=== PATIENT | male | born 1955 | race Caucasian/White ===

== ENCOUNTER → 2019-12-30 15:10 | Outpatient (BNVA) | payer OTHER, SELFPAY | PROVIDERS: PCP Internal Medicine; Referring Provider Internal Medicine; Visit Provider Internal Medicine Cardiovascular Disease | DX: I48.0 Paroxysmal atrial fibrillation (principal) | CPT/HCPCS: 93005 ==

== ENCOUNTER 2020-05-02 09:39 | Outpatient (REF) | payer OTHER, SELFPAY ==
[2020-05-02 11:07] LABS: MANUAL DIFF FLAG NO
[2020-05-02 11:15] LABS: Basophils Percent Auto 0.2 % (0-2); Eosinophils Absolute Auto 0.2 X10*3/uL (0.0-0.4); Eosinophils Percent Auto 3.8 % (0-4); Hematocrit 40.3 % (42-52); Hemoglobin 13.6 g/dl (14.0-18.0); Imm Gran Abs Auto 0.01 X10*3/uL (0.00-0.03); Imm Gran Pct Auto 0.2 % (0.0-0.4); Mean Corpuscular HGB Conc 33.7 g/dl (31.0-36.0); Mean Corpuscular Hemoglobin 32.2 pg (27.0-33.0); Mean Corpuscular Volume 95.3 fL (80-98); Mean Platelet Volume 9.3 fL (9.4-12.4); Monocytes Absolute Auto 0.3 X10*3/uL (0.1-1.2); Monocytes Percent Auto 6.5 % (2-11); Neutrophils Absolute Auto 3.5 X10*3/uL (2.0-8.3); Neutrophils Percent Auto 70.3 % (45-73); Platelet Count 126 X10*3/uL (160-400); Red Blood Count 4.23 X10*6/uL (4.60-5.80); Red Cell Distribution Width 12.2 % (11.0-16.0)
[2020-05-02 11:21] LABS: Creatinine Urine 162.52 mg/dL; Microalbum/Creatinine Ratio Ur 40.6 ug/mg cr
[2020-05-02 11:26] LABS: B Type Natriuretic Peptide 32 pg/mL (<100)
[2020-05-02 11:35] LABS: Alanine Aminotransferase 22 U/L (0-40); Albumin Level 4.4 g/dL (3.5-5.0); Alkaline Phosphatase 62 U/L (39-117); Anion Gap 14 (12-20); Aspartate Amino Transferase 22 U/L (5-37); Bilirubin Total 1.3 mg/dL (0.0-1.0); Blood Urea Nitrogen 15 mg/dL (9-16); Calcium 9.1 mg/dL (8.4-10.2); Carbon Dioxide 26 mmol/L (22-29); Chloride 109 mmol/L (96-108); Cholesterol 148 mg/dL; Estimated Glomerular Filt Rate > 60; Glucose Fasting 88 mg/dL (60-99); HDL Cholesterol 56 mg/dL; LDL Cholesterol Calculated 79 mg/dl; Phosphorus 2.6 mg/dL (2.7-4.5); Potassium 4.6 mmol/L (3.3-5.1); Sodium 144 mmol/L (135-145); Total Protein 6.9 g/dL (6.5-8.0); Triglycerides 67 mg/dL
[2020-05-02 11:49] LABS: T4 Thyroxine 5.4 ug/dL (4.5-12.0); Thyroid Stimulating Hormone 3.59 uIU/mL (0.32-4.0)
[2020-05-04 04:55] LABS: Folate > 20.0 ng/mL (> or = 4.0); Vitamin B12 306 pg/mL (200-900)
== END 2020-05-02 09:40 | disposition home or self-care (01) ==
LOC: HO.LAB 09:39
PROVIDERS: PCP Internal Medicine; Visit Provider Internal Medicine
DX: Z12.5 Encounter for screening for malignant neoplasm of prostate (principal); E11.9 Type 2 diabetes mellitus without complications; E66.9 Obesity, unspecified; I48.91 Unspecified atrial fibrillation; E78.00 Pure hypercholesterolemia, unspecified; I10 Essential (primary) hypertension; G47.33 Obstructive sleep apnea (adult) (pediatric)
CPT/HCPCS: 36415; 80053; 80061; 82043; 82607; 82746; 83735; 83880; 84100; 84153; 84436; 84443; 85025

== ENCOUNTER → 2020-05-21 14:46 | Outpatient (BNVA) | payer OTHER, SELFPAY | PROVIDERS: PCP Internal Medicine; Visit Provider Nurse Practitioner Family | DX: I48.0 Paroxysmal atrial fibrillation (principal); I44.0 Atrioventricular block, first degree; I10 Essential (primary) hypertension; E66.9 Obesity, unspecified; G47.33 Obstructive sleep apnea (adult) (pediatric) | CPT/HCPCS: 93005 ==

== ENCOUNTER → 2020-11-30 14:55 | Outpatient (BNVA) | payer OTHER, SELFPAY | PROVIDERS: PCP Internal Medicine; Referring Provider Internal Medicine; Visit Provider Internal Medicine Cardiovascular Disease | DX: I48.0 Paroxysmal atrial fibrillation (principal); I44.7 Left bundle-branch block, unspecified | CPT/HCPCS: 93005 ==

== ENCOUNTER → 2021-05-25 14:00 | Outpatient (REF) | payer OTHER, SELFPAY ==
--- NOTE | 2021-05-25 14:10 | CA_ITS ---
Transthoracic Echocardiogram Patient (Last, First, Middle): Kem Garibay M Gender: Male Date of : 1955 Age: 65 Procedure Date: 05/25/2021 Procedure Type: Transthoracic Echocardiogram Location: OP Height: 185.42 cm Weight: 129.28 kg BSA: 2.50 m2 Heart Rate: bpm BP: 115 / 78 mmHg Admissions Evaluator: JESSI Referring MD: Roel Benjamin MD Symptoms: I48.0 - Paroxysmal atrial fibrillation Study Quality: Fair/contrast ECG Rhythm: Undetermined Conclusions: - The left ventricular systolic function is moderately decreased. The calculated ejection fraction is 37% by biplane method. - No obvious valvular pathology seen on this study. - There is mild dilatation of the ascending aorta measuring 4.00 cm. Findings Left Ventricle Moderately increased left ventricular cavity size. There is mildly increased left ventricular wall thickness. The left ventricular systolic function is moderately decreased. The calculated ejection fraction is 37% by biplane method. There is paradoxical septal motion consistent with a left bundle branch block. Diastolic function is indeterminate on the basis of available data. Right Ventricle Normal right ventricular cavity size and systolic function. Atria Both atria are normal in size. Aortic Valve The aortic valve was not well visualized. There is no aortic valve stenosis. There is no aortic valve regurgitation. Mitral Valve The mitral valve appears normal. There is mild anterior mitral leaflet thickening. There is trace mitral valve regurgitation. There is no mitral valve stenosis. Pulmonic Valve The pulmonic valve is likely normal. Tricuspid Valve There is trace tricuspid valve regurgitation. The pulmonary artery systolic pressure is normal. Great Vessels There is mild dilatation of the ascending aorta measuring 4.00 cm. Venous The inferior vena cava is normal in size and collapses greater than 50% with inspiration. Pericardium/Pleural There is no evidence of pericardial effusion. Prior Study Comparison Changes noted compared to prior study dated: 07/31/2019. LV dilated. LVEF reduced. Recommendations, Care & Conclusions No obvious valvular pathology seen on this study. Measurements 2D Linear Measurements IVSd: 1.03 0.6-0.9/0.6-1.0 cm LVIDd: 7.03 3.9-5.3/4.2-5.9 cm LVIDd Index: 2.81 2.4-3.2/2.2-3.1 cm/m2 LVIDs: 5.42 2.0-3.6 cm LVPWd: 1.19 0.7-1.1 cm LA Diam: 3.50 2.7-3.8/3.0-4.0 cm LAIDs Index: 1.40 1.5-2.3 cm/m2 LV Mass: 461.79 67-162/88-224 g LV Mass Index: 184.71 43-95/49-115 g/m2 LVOT Diam: 2.30 3.0+(-)1.3 cm 2D Systolic Function EF 4C: 30.40 >55% EF 2C: 46.10 >55% EF BiP: 37.20 >55% Mitral Valve E'Lateral: 10.20 E'Medial: 10.60 Aortic Valve AoV Pk Benigno: 1.59 AoV Mn Benigno: 1.18 AoV VTI: 0.33 AoV Pk Grad: 10.00 Aov Mn Grad: 6.00 MOLLY Cont.VTI: 2.63 LVOT LVOT Pk Benigno: 1.02 LVOT Mn Benigno: 0.72 LVOT VTI: 0.21 LVOT Pk Grad: 4.00 LVOT Mn Grad: 2.00 LVOT Diam: 2.30 LVOT Area: 4.15 Diastolic Function E'Medial: 10.60 E' Laterial: 10.20 Right Ventricle TAPSE (mm): 22.00 TVS' Benigno: 12.40 Tricuspid Valve TR Pk Benigno: 2.36 TR Pk Grad: 22.00 RA Press: 3.00 RVSP: 25.00 Great Vessels Aorta Sinus of Valsalva: 3.96 2.0-3.[address] Ridge: 2.94 1.7-3.4 cm Ao Asc: 4.00 2.1-3.4 cm Updated in Other Vendor System with Status of Final Nathan Oreilly MD electronically signed on 05/25/2021 5:08:22 PM with status of Final
== END ==
LOC: HO.CARD 14:00
PROVIDERS: PCP Internal Medicine; Visit Provider Internal Medicine Cardiovascular Disease
DX: I48.0 Paroxysmal atrial fibrillation (principal)
CPT/HCPCS: 93306; Q9957

== ENCOUNTER → 2021-06-01 14:34 | Outpatient (BNVA) | payer OTHER, SELFPAY | PROVIDERS: PCP Internal Medicine; Referring Provider Internal Medicine; Visit Provider Internal Medicine Cardiovascular Disease | DX: Z13.89 Encounter for screening for other disorder (principal) ==

== ENCOUNTER → 2021-06-15 08:06 | Outpatient (REF) | payer OTHER, SELFPAY ==
--- NOTE | ~2021-06-15 | NM_ITS ---
Lexiscan Myocardial perfusion study Indication: Cardiomyopathy, assess for coronary disease and ischemia Technique: The patient was brought in for a Lexiscan perfusion study on 06/15/2021 and was injected 0.4 mg of Lexiscan intravenously. Within a minute of this injection 45 mCi of sestamibi was given intravenously. Images were obtained using the SPECT gamma camera interlaced with the gating device. Images were obtained in supine position. Resting perfusion study was performed on 06/16/2021. Patient was administered 45 mCi of sestamibi intravenously at rest. Images were then obtained in supine position. Total DLP 159mGy-cm. Images were processed with the software and compared side to side in short axis, horizontal long axis and vertical long axis views. Findings: Raw acquisition reviewed. The stress perfusion study showed severely reduced tracer uptake along the inferior wall. There is improvement in tracer uptake which could indicate components of diaphragmatic attenuation artifact. The gated study shows markedly diminished LV systolic function with calculated LVEF of 24%. LV cavity is dilated in size. The gated study shows markedly diminished wall thickening and contraction of segments. Resting study shows diminished tracer uptake along the inferior wall. There is improvement with CT attenuation correction and hence could be components of diaphragmatic attenuation artifact. Gating at rest reveals globally reduced contractility with ejection fraction at 36%. The findings are consistent with no clear reversible defects. Fixed inferior defect. NM/NM maikel perf SPECT rest & str Impression: 1. Myocardial perfusion imaging study shows no clear evidence of any ischemia. Fixed inferior defect that could be from diaphragmatic attenuation artifact but cannot exclude a prior infarct in that area. 2. Gated LVEF is 24% during stress and 36% during rest. 3. Transient ischemic dilatation not present but LV cavity is dilated. EKG component of the test reported separately.
--- NOTE | 2021-06-15 08:09 | CA_ITS ---
Acquisition Time: 2021-06-15 08:22:51 Total Exercise Time: 00:02:00 Test Indications: AFIB, AFLUTTER, LBBB Medications: SEE CHART Protocol: LEXISCAN Max HR: 104 BPM 66% of Pred: 157 BPM Max BP: 144/078 mmHG Max Work Load: 1.0 METS Pharmacological stress test with Lexiscan injection, while sitting, without anginal symptoms, with isolated PVCs, two ventricular cuplets, with normotensive response to injection, with nondiagnostic EKG for ischemia. In recovery he reported shortness of breath and was treated with Aminphylline 75mg IVP to reverse Lexiscan with resolution of symptom. Nuclear mages pending. Test reviewed with Dr Toribio. Referred By: Roel Benjamin Overread By: MATILDA DAMON
== END ==
LOC: HO.CARD 08:06
PROVIDERS: PCP Internal Medicine; Visit Provider Internal Medicine Cardiovascular Disease
DX: I48.0 Paroxysmal atrial fibrillation (principal); I44.7 Left bundle-branch block, unspecified; I50.9 Heart failure, unspecified
CPT/HCPCS: 78452; 93017; A9500; J0280; J2785

== ENCOUNTER 2021-06-29 06:42 | Outpatient (REF) | payer OTHER, SELFPAY ==
[2021-06-29 07:09] LABS: MANUAL DIFF FLAG NO
[2021-06-29 07:37] LABS: Basophils Percent Auto 0.3 % (0-2); Eosinophils Absolute Auto 0.1 X10*3/uL (0.0-0.4); Eosinophils Percent Auto 1.7 % (0-4); Hematocrit 39.9 % (42.0-52.0); Hemoglobin 13.6 g/dl (14.0-18.0); Imm Gran Abs Auto 0.01 X10*3/uL (0.00-0.03); Imm Gran Pct Auto 0.3 % (0.0-0.4); Lymphocytes Absolute Auto 1.1 X10*3/uL (1.2-4.9); Mean Corpuscular HGB Conc 34.1 g/dl (31.0-36.0); Mean Corpuscular Hemoglobin 31.8 pg (27.0-33.0); Mean Corpuscular Volume 93.2 fL (80.0-98.0); Monocytes Absolute Auto 0.3 X10*3/uL (0.1-1.2); Monocytes Percent Auto 8.5 % (2-11); Neutrophils Absolute Auto 2.1 x10*3/uL (2.0-8.3); Neutrophils Percent Auto 58.2 % (45-73); Platelet Count 128 X10*3/uL (160-400); Red Blood Count 4.28 X10*6/uL (4.60-5.80); Red Cell Distribution Width 12.1 % (11.0-16.0); White Blood Count 3.5 X10*3/uL (4.8-10.8)
[2021-06-29 08:00] LABS: Alanine Aminotransferase 18 U/L (0-40); Albumin Level 4.2 g/dL (3.5-5.0); Alkaline Phosphatase 58 U/L (39-117); Anion Gap 12 (12-20); Aspartate Amino Transferase 16 U/L (5-37); Bilirubin Total 1.2 mg/dL (0.0-1.0); Blood Urea Nitrogen 12 mg/dL (9-16); Calcium 9.5 mg/dL (8.4-10.2); Carbon Dioxide 26 mmol/L (22-29); Chloride 107 mmol/L (96-108); Cholesterol 160 mg/dL; Estimated Glomerular Filt Rate > 60; Glucose Random 109 mg/dL (60-115); HDL Cholesterol 60 mg/dL; LDL Cholesterol Calculated 69 mg/dl; Potassium 4.5 mmol/L (3.3-5.1); Sodium 140 mmol/L (135-145); Total Protein 6.5 g/dL (6.5-8.0); Triglycerides 157 mg/dL
[2021-06-29 08:03] LABS: B Type Natriuretic Peptide 224 pg/mL (<100)
[2021-06-29 08:23] LABS: Free T4 (Free Thyroxine) 0.77 ng/dL (0.71-1.85); Thyroid Stimulating Hormone 10.97 uIU/mL (0.32-4.0)
[2021-06-29 08:32] LABS: Folate 14.2 ng/mL (> or = 4.0); Vitamin B12 198 pg/mL (200-900)
[2021-06-29 09:24] LABS: Creatinine Urine 133.07 mg/dL
== END 2021-06-29 06:43 | disposition home or self-care (01) ==
LOC: HO.LAB 06:42
PROVIDERS: PCP Internal Medicine; Visit Provider Internal Medicine
DX: E11.65 Type 2 diabetes mellitus with hyperglycemia (principal); E78.00 Pure hypercholesterolemia, unspecified
CPT/HCPCS: 36415; 80053; 80061; 82043; 82607; 82746; 83880; 84439; 84443; 85025

== ENCOUNTER 2021-08-11 09:23 | Outpatient (REF) | payer OTHER, SELFPAY ==
--- NOTE | ~2021-08-11 | US_ITS ---
EXAMINATION: US THYROID CLINICAL INFORMATION: Hypothyroidism, unspecified. COMPARISON: CT soft tissue neck 11/01/2018. Ultrasound soft tissue neck 10/29/2018. TECHNIQUE: Linear transducer grayscale and color Doppler examination with attention to the region of the thyroid. FINDINGS: SIZE: Measurements of the thyroid lobes and nodules are given in sagittal, anteroposterior and transverse dimensions respectively. Right Thyroid Lobe: 3.5 x 0.8 x 1.1 cm, volume 1.6 mL. Parenchyma: The gland echotexture is homogeneous. Thyroid vascularity is normal. Left Thyroid Lobe: Not seen. Isthmus: 0.2 cm in maximum AP dimension. No focal thyroid nodule is seen. NODES: No lymphadenopathy is seen in the tissue surrounding the thyroid gland. US/US thyroid IMPRESSION: Left thyroid lobe is not visualized. Unremarkable right thyroid lobe. No nodules seen. ACR TI-RADS RECOMMENDATION REFERENCE: Ultrasound-guided fine-needle aspiration, followup ultrasound, no further follow up. * TR1 (0 point) and TR 2 (2 points): No FNA or follow up * TR3 (3 points): FNA if more than or equal to 2.5 cm in maximum dimension, followup ultrasound in 1, 3 and 5 years if 1.5 to 2.4 cm in maximum dimension. * TR4 (4-6 points): FNA if more than or equal to 1.5 cm in maximum dimension, followup ultrasound in 1, 2, 3 and 5 years if 1 to 1.4 cm in maximum dimension. * TR5 (more than or equal to 7 points): FNA if more than or equal to 1 cm in maximum dimension, followup ultrasound every year for 5 years if 0.5 to 0.9 cm in maximum dimension. * TR3, TR4 or TR5 nodules that are below the size threshold for follow up receive no follow up.
== END 2021-08-11 09:24 | disposition home or self-care (01) ==
LOC: HO.US 09:23
PROVIDERS: Visit Provider Internal Medicine
DX: E03.9 Hypothyroidism, unspecified (principal)
CPT/HCPCS: 76536

== ENCOUNTER 2021-10-05 06:51 | Outpatient (REF) | payer OTHER, SELFPAY ==
[2021-10-05 08:21] LABS: Thyroid Stimulating Hormone 9.32 uIU/mL (0.32-4.0)
[2021-10-12 17:32] LABS: Cortisol, Free 1.22 mcg/dL
== END 2021-10-05 06:52 | disposition home or self-care (01) ==
LOC: HO.LAB 06:51
PROVIDERS: PCP Internal Medicine; Visit Provider Internal Medicine
DX: E11.65 Type 2 diabetes mellitus with hyperglycemia (principal); E03.9 Hypothyroidism, unspecified; R22.2 Localized swelling, mass and lump, trunk
CPT/HCPCS: 36415; 82530; 84439; 84443

== ENCOUNTER → 2021-11-16 09:22 | Outpatient (REF) | payer OTHER, SELFPAY ==
--- NOTE | 2021-11-16 09:28 | CA_ITS ---
Transthoracic Echocardiogram Patient (Last, First, Middle): Kem Garibay M Gender: Male Date of : 1955 Age: 65 Procedure Date: 11/16/2021 Procedure Type: Transthoracic Echocardiogram Location: OP Height: 185.42 cm Weight: 124.74 kg BSA: 2.46 m2 Heart Rate: bpm BP: 130 / 72 mmHg Nurse Liaison: VH/TO Referring MD: Roel Benjamin MD [employer] Trimmer: Roel Benjamin MD Symptoms: I42.9 - Cardiomyopathy, unspecified Study Quality: Technically Difficult/Contrast ECG Rhythm: Sinus Conclusions: - 1. Moderately dilated left ventricle with severely reduced LV ejection fraction 15-20% with pseudonormal filling pattern 2. Moderately dilated left atrium 3. Normal RV systolic pressure Findings Procedure Information Contrast agent, definity, is being given per protocol without apparent complications. Left Ventricle Moderately increased left ventricular cavity size. There is normal left ventricular wall thickness. The visually estimated ejection fraction is between 15-20%. There is paradoxical septal motion consistent with a left bundle branch block. Spectral Doppler is indicative of a pseudonormal filling pattern. E/E prime ratio is between 8 and 15 consistent with indeterminate filling pressures. Right Ventricle Normal right ventricular cavity size and systolic function. Atria The left atrium is moderately dilated. Tricuspid Valve Normal tricuspid valve structure. The right ventricular systolic pressure is 23 mmHg. Normal right atrial pressure. There is no evidence of pulmonary hypertension. Pericardium/Pleural There is no evidence of pericardial effusion. Prior Study Comparison Changes noted compared to prior study dated: 05/25/2021. LV systolic function is significantly reduced Measurements 2D Linear Measurements IVSd: 0.76 0.6-0.9/0.6-1.0 cm LVIDd: 6.34 3.9-5.3/4.2-5.9 cm LVIDd Index: 2.58 2.4-3.2/2.2-3.1 cm/m2 LVIDs: 5.41 2.0-3.6 cm LVPWd: 0.95 0.7-1.1 cm LA Diam: 4.80 2.7-3.8/3.0-4.0 cm LAIDs Index: 1.95 1.5-2.3 cm/m2 LV Mass: 275.68 67-162/88-224 g LV Mass Index: 112.06 43-95/49-115 g/m2 LVOT Diam: 2.30 3.0+(-)1.3 cm 2D Systolic Function EF 4C: 18.30 >55% EF 2C: 12.90 >55% EF BiP: 16.70 >55% Mitral Valve MV Pk E: 0.90 MV Decel Time: 211.00 E'Lateral: 9.14 E'Medial: 7.29 E/E' Med: 12.40 E/E' Lat: 9.90 PHT: 62.00 MVA PHT: 3.55 Decel Hinds: 4.29 LVOT LVOT Pk Benigno: 0.71 LVOT Mn Benigno: 0.52 LVOT VTI: 0.13 LVOT Pk Grad: 2.00 LVOT Mn Grad: 1.00 LVOT Diam: 2.30 LVOT Area: 4.15 Diastolic Function MV Pk E: 0.90 E'Medial: 7.29 E/E' Med: 12.40 E' Laterial: 9.14 E/E' Lat: 9.90 Right Ventricle TAPSE (mm): 23.30 TVS' Benigno: 11.20 Tricuspid Valve TR Pk Benigno: 2.21 TR Pk Grad: 20.00 RA Press: 3.00 RVSP: 23.00 Updated in Other Vendor System with Status of Final Roel Benjamin MD electronically signed on 11/16/2021 6:56:51 PM with status of Final
== END ==
LOC: HO.CARD 09:22
PROVIDERS: PCP Internal Medicine; Visit Provider Internal Medicine Cardiovascular Disease
DX: I42.9 Cardiomyopathy, unspecified (principal)
CPT/HCPCS: 93308; Q9957

== ENCOUNTER 2021-12-02 06:36 | Outpatient (REF) | payer OTHER, SELFPAY ==
[2021-12-02 08:15] LABS: Free T4 (Free Thyroxine) 0.93 ng/dL (0.71-1.85); Thyroid Stimulating Hormone 7.02 uIU/mL (0.32-4.0)
== END 2021-12-02 06:37 | disposition home or self-care (01) ==
LOC: HO.LAB 06:36
PROVIDERS: PCP Internal Medicine; Visit Provider Internal Medicine
DX: E03.9 Hypothyroidism, unspecified (principal)
CPT/HCPCS: 36415; 84439; 84443

== ENCOUNTER → 2022-01-05 15:56 | Outpatient (BNVA) | payer OTHER, SELFPAY | PROVIDERS: PCP Internal Medicine; Referring Provider Internal Medicine; Visit Provider Internal Medicine Cardiovascular Disease | DX: I48.91 Unspecified atrial fibrillation (principal); I44.7 Left bundle-branch block, unspecified; Z79.899 Other long term (current) drug therapy | CPT/HCPCS: 93005 ==

== ENCOUNTER 2022-01-21 06:30 | Outpatient (REF) | payer OTHER, SELFPAY ==
[2022-01-21 08:21] LABS: Free T4 (Free Thyroxine) 1.04 ng/dL (0.71-1.85); Thyroid Stimulating Hormone 7.36 uIU/mL (0.32-4.0)
== END 2022-01-21 06:31 | disposition home or self-care (01) ==
LOC: HO.LAB 06:30
PROVIDERS: PCP Internal Medicine; Visit Provider Internal Medicine
DX: E03.9 Hypothyroidism, unspecified (principal)
CPT/HCPCS: 36415; 84439; 84443

== ENCOUNTER 2022-01-21 11:16 | Day surgery (SDC) | payer OTHER, SELFPAY ==
--- NOTE | 2022-01-20 11:01 | P.CONAN_ITS ---
Documented by User: Geovanna Paz NP 01/20/22 12:13 HPI - Anesthesia Eval Consult details Narrative: 66yo M for Cardioversion ICD in situ Eliquis for afib [facility] Active Problems Active Problems: All Active Problems (Updated 01/20/22 @ 09:46 by Sylvia Riley, RN) SHAR (obstructive sleep apnea) (Acute) Cardiomyopathy (Acute) Thrombocytopenia (Acute) First degree AV block (Acute) Erectile dysfunction (Acute) LBBB (left bundle branch block) (Acute) Hypothyroid (Acute) Vitamin B12 deficiency (Acute) Annual physical exam (Acute) Mass on back (Acute) Paroxysmal atrial fibrillation (Acute) Cancer of oropharynx (Acute) Obesity (BMI 30-39.9) (Acute) Congestive heart failure (Acute) Type 2 diabetes mellitus with hyperglycemia (Acute) Hypercholesterolemia (Acute) Hypertension (Acute) Past Medical History Medical History (Updated 01/20/22 @ 09:46 by Sylvia Riley, RN) Anxiety Atrial fibrillation Cancer of oropharynx Cardiomyopathy Congestive heart failure Erectile dysfunction Fatty liver Hypercholesterolemia Hypertension Left bundle branch block Obesity (BMI 30-39.9) Paroxysmal atrial fibrillation Type 2 diabetes mellitus with hyperglycemia Vitamin D deficiency Family History Family History Father Lung cancer Mother Diabetes Brother Substance abuse Surgical History Surgical History (Updated 01/20/22 @ 09:48 by Sylvia Riley RN) History of bilateral knee arthroplasty History of cardioversion History of implantable cardioverter-defibrillator (ICD) insertion History of tonsillectomy Hx of cholecystectomy Hx of knee surgery Social History Social History Housing: House Alcohol intake: current Alcohol intake frequency: a few times a month Patient Tobacco Use Status: Never used Tobacco e-Cigarette/Vaping Use: Never Used Second Hand Smoke Exposure: No service: Yes Current occupational status: employed Cognitive needs: No Hearing needs: No Vision needs: Yes Meds Allergies Allergy/AdvReac Type Severity Reaction Status Date / Time No Known Allergies Allergy Verified 10/12/21 15:08 Home Medications Medication Instructions Recorded Confirmed Last Taken Type pilocarpine HCl 5 mg tablet 5 mg PO BID 07/01/21 12/09/21 Unknown History coenzyme Q10 200 mg capsule (Co 400 mg PO DAILY 10/12/21 12/09/21 Unknown History Q-10) Exam Exam Date and Time: January 20, 2022 1101 Pertinent Lab Results Pertinent Lab Results: Laboratory Tests 06/29/21 06/29/21 07:07 07:07 WBC 3.5 L Hgb 13.6 L Hct 39.9 L Plt Count 128 L Sodium 140 Potassium 4.5 Chloride 107 Carbon Dioxide 26 BUN 12 Creatinine 0.80 Narrative Narrative: ECHO 11/2021 Conclusions: - 1. Moderately dilated left ventricle with severely reduced LV? ejection fraction 15-20% with pseudonormal filling pattern ? ? ? 2. Moderately dilated left atrium? 3. Normal RV systolic pressure ?? NM maikel perf SPECT rest & str 06/2021 Impression: ? 1.? Myocardial perfusion imaging study shows no clear evidence of any ischemia. Fixed inferior defect that could be from diaphragmatic attenuation artifact but cannot exclude a prior infarct in that area. 2.? Gated LVEF is 24% during stress and 36% during rest. 3. Transient ischemic dilatation not present but LV cavity is dilated. ? EKG component of the test reported separately. Cardiac Device Check Details: Remote ICD report generated 01/11/2022.? 100% atrial fibrillation noted.? Bi V pacing is only 33% of the time.? Otherwise device function is adequate. Assessment and Plan Assessment Anesthesia Assessment: Chart Reviewed Documented by User: Veronica Crouch MD 01/21/22 10:38 [facility] Past Medical History Medical History (Updated 01/20/22 @ 09:46 by Sylvia Riley, CURT) Anxiety Atrial fibrillation Cancer of oropharynx Cardiomyopathy Congestive heart failure Erectile dysfunction Fatty liver Hypercholesterolemia Hypertension Left bundle branch block Obesity (BMI 30-39.9) Paroxysmal atrial fibrillation Type 2 diabetes mellitus with hyperglycemia Vitamin D deficiency Functional capacity: independent ambulation Family History Family History Father Lung cancer Mother Diabetes Brother Substance abuse Surgical History Surgical History (Updated 01/20/22 @ 09:48 by Sylvia Riley RN) History of bilateral knee arthroplasty History of cardioversion History of implantable cardioverter-defibrillator (ICD) insertion History of tonsillectomy Hx of cholecystectomy Hx of knee surgery Social History Social History Housing: House Alcohol intake: current Alcohol intake frequency: a few times a month Patient Tobacco Use Status: Never used Tobacco e-Cigarette/Vaping Use: Never Used Second Hand Smoke Exposure: No service: Yes Current occupational status: employed Cognitive needs: No Hearing needs: No Vision needs: Yes Meds Allergies Allergy/AdvReac Type Severity Reaction Status Date / Time No Known Allergies Allergy Verified 10/12/21 15:08 Home Medications Medication Instructions Recorded Confirmed Last Taken Type pilocarpine HCl 5 mg tablet 5 mg PO BID 07/01/21 12/09/21 Unknown History coenzyme Q10 200 mg capsule (Co 400 mg PO DAILY 10/12/21 12/09/21 Unknown History Q-10)
[2022-01-21] VITALS (7 sets, daily range): BP systolic 113–141; BP diastolic 36–86; PULSE 60–73; RESP 15–18; TEMP 36.3–36.4; O2SAT 96–98; BMI 37.5
[2022-01-21] MEDS: Lactated Ringers 1,000 ML 50 ML IVCONT (12:13)
--- NOTE | 2022-01-21 13:35 | ECG_ITS ---
Test Reason : postop Blood Pressure : / mmHG Vent. Rate : 063 BPM Atrial Rate : 063 BPM P-R Int : 148 ms QRS Dur : 172 ms QT Int : 518 ms P-R-T Axes : 088 228 051 degrees QTc Int : 530 ms Atrial-sensed ventricular-paced rhythm with frequent AV dual-paced complexes Abnormal ECG When compared with ECG of 12-NOV-2018 12:41, Electronic ventricular pacemaker has replaced Sinus rhythm Referred By: Roel Benjamin Electronically Signed By:ROEL BENJAMIN MD
--- NOTE | 2022-01-21 13:39 | HO.CARDIVERS ---
Cardioversion Procedure Note Cardioversion Date of Procedure: Today Ordering Provider: Myself Performing Provider: Myself Indication for Procedure: Persistent atrial fibrillation with suboptimal biventricular pacing Pre-Op Diagnosis: Same Post-Op Diagnosis: Sinus rhythm Performed with Transesophageal Echo: No History: See my office note Consent: Verbal and Written consent was obtained from the patient before starting the procedure and confirming oral anticoagulation use. The patient was made aware of the risk of synchronized cardioversion including benefits and alternatives Procedure: After consent obtained, cardioversion pads were attached in anteroposterior configuration and the patient was sedated by the anesthesia team. Once adequate sedation achieved, patient was delivered 200 joules of biphasic synchronized energy in anteroposterior configuration Complications: None Impression: Successful conversion to sinus rhythm ICD was interrogated prior to the cardioversion and pacing and shock lead impedance is stable. Post-conversion the pacing and shock lead impedance is stable and similar to pre cardioversion. ICD was reprogrammed from VVI to DDDR at 60 beats per minute. Biventricular pacing was then achieved. Atrial sensing was greater than 5 mV. RV and LV pacing thresholds appear to be stable. Recommendations: 1. Twelve lead EKG 2. Continue amiodarone and oral anticoagulation 3. Follow up in the clinic as planned
--- NOTE | 2022-01-21 13:43 | P.CONAN_ITS ---
[facility] Active Problems Active Problems: All Active Problems (Updated 01/20/22 @ 09:46 by Sylvia Riley RN) SHAR (obstructive sleep apnea) (Acute) Cardiomyopathy (Acute) Thrombocytopenia (Acute) First degree AV block (Acute) Erectile dysfunction (Acute) LBBB (left bundle branch block) (Acute) Hypothyroid (Acute) Vitamin B12 deficiency (Acute) Annual physical exam (Acute) Mass on back (Acute) Paroxysmal atrial fibrillation (Acute) Cancer of oropharynx (Acute) Obesity (BMI 30-39.9) (Acute) Congestive heart failure (Acute) Type 2 diabetes mellitus with hyperglycemia (Acute) Hypercholesterolemia (Acute) Hypertension (Acute) Past Medical History Medical History Anxiety Atrial fibrillation Cancer of oropharynx Cardiomyopathy Congestive heart failure Erectile dysfunction Fatty liver Hypercholesterolemia Hypertension Left bundle branch block Obesity (BMI 30-39.9) Paroxysmal atrial fibrillation Type 2 diabetes mellitus with hyperglycemia Vitamin D deficiency Functional capacity: independent ambulation Family History Family History Father Lung cancer Mother Diabetes Brother Substance abuse Family history of problems with anesthesia: No Surgical History Surgical History History of bilateral knee arthroplasty History of cardioversion History of implantable cardioverter-defibrillator (ICD) insertion History of tonsillectomy Hx of cholecystectomy Hx of knee surgery History of Problems with Anesthesia: No Social History Social History Housing: House Alcohol intake: current Alcohol intake frequency: a few times a month Patient Tobacco Use Status: Never used Tobacco e-Cigarette/Vaping Use: Never Used Second Hand Smoke Exposure: No Use of substances other than those prescribed or required for medical reasons: No Are you DNR?: No Advance Directives: No Advance Directives Information Provided: Yes service: Yes Current occupational status: employed Cognitive needs: No Hearing needs: No Vision needs: Yes Meds Allergies Allergy/AdvReac Type Severity Reaction Status Date / Time No Known Allergies Allergy Verified 10/12/21 15:08 Active Medications: Current Medications Lactated Ringer's (Lr) 1,000 mls @ 50 mls/hr IVCONT .Q20H MAY Last Admin: 01/21/22 12:13 Dose: 50 mls/hr Home Medications Medication Instructions Recorded Confirmed Last Taken Type pilocarpine HCl 5 mg tablet 5 mg PO BID 07/01/21 01/21/22 01/21/22 History coenzyme Q10 200 mg capsule (Co 400 mg PO DAILY 10/12/21 01/21/22 01/21/22 History Q-10) amlodipine 5 mg tablet 10 mg PO DAILY 01/21/22 01/21/22 01/21/22 History Exam Exam Date and Time: January 21, 2022 1343 Height,Weight and Vital Signs: Height 6 ft 1 in Weight 129.274 kg Last Vital Signs Temp 97.6 F 01/21/22 11:52 Pulse 73 01/21/22 11:52 Resp 18 01/21/22 11:52 BP 135/86 01/21/22 11:52 Pulse Ox 96 01/21/22 11:52 O2 Del Method 01/21/22 11:52 Airway Mallampati Class: II TM Dist: >3cm Neck ROM: Full Heart: irreg Lungs: CTA Assessment and Plan Final Anesthetic Review Family History of Problems with Anesthesia: No History of Problems with Anesthesia: No ASA Class: III Final Preanesthetic Review: Meds/Allgs Chart Reviewed, Consent Obtained/Reviewed and Anes Risks/Benef Reviewed Patient Risk: Intermediate Procedure Risk: Low Anesthetic Plan Disposition: Standard PACU
--- NOTE | 2022-01-21 13:47 | HO.POSTANES ---
Post Anesthesia Evaluation Post Anesthesia Evaluation Vital Signs: Vital Signs Temp Pulse Resp BP Pulse Ox O2 Del Method 01/21/22 11:52 97.6 F 73 18 135/86 96 Room Air Anesthesia: General Mental Status: Awake Pain Control: Satisfactory Nausea/Vomiting: None Hydration: Adequate Anesthesia-Related Issues: No Anes. Related Issues
== END 2022-01-21 14:38 | disposition home or self-care (01) ==
PROVIDERS: PCP Internal Medicine; Visit Provider Internal Medicine Cardiovascular Disease
PROC: 5A2204Z Restoration of Cardiac Rhythm, Single (ICD-10-PCS; principal; 2022-01-21 13:00)
DX: I48.19 Other persistent atrial fibrillation (principal); I42.9 Cardiomyopathy, unspecified; I11.0 Hypertensive heart disease with heart failure; I50.9 Heart failure, unspecified; E11.9 Type 2 diabetes mellitus without complications; Z95.810 Presence of automatic (implantable) cardiac defibrillator; Z79.01 Long term (current) use of anticoagulants; Z79.899 Other long term (current) drug therapy
CPT/HCPCS: 92960; 93005

== ENCOUNTER → 2022-02-08 13:47 | Outpatient (BNVA) | payer OTHER, SELFPAY | PROVIDERS: PCP Internal Medicine; Referring Provider Internal Medicine; Visit Provider Internal Medicine Cardiovascular Disease | DX: Z45.02 Encounter for adjustment and management of automatic implantable cardiac defibrillator (principal); I48.0 Paroxysmal atrial fibrillation; I42.9 Cardiomyopathy, unspecified | CPT/HCPCS: 93005 ==

== ENCOUNTER 2022-03-10 06:35 | Outpatient (REF) | payer OTHER, SELFPAY ==
[2022-03-10 06:39] LABS: MANUAL DIFF FLAG NO
[2022-03-10 07:32] LABS: Basophils Percent Auto 0.2 % (0-2); Eosinophils Absolute Auto 0.1 X10*3/uL (0.0-0.4); Eosinophils Percent Auto 1.7 % (0-4); Hematocrit 39.8 % (42.0-52.0); Hemoglobin 13.7 g/dl (14.0-18.0); Imm Gran Abs Auto 0.02 X10*3/uL (0.00-0.03); Imm Gran Pct Auto 0.5 % (0.0-0.4); Lymphocytes Absolute Auto 1.1 X10*3/uL (1.2-4.9); Lymphocytes Percent Auto 26.3 % (20-40); Mean Corpuscular HGB Conc 34.4 g/dl (31.0-36.0); Mean Corpuscular Hemoglobin 31.9 pg (27.0-33.0); Mean Corpuscular Volume 92.8 fL (80.0-98.0); Monocytes Absolute Auto 0.5 X10*3/uL (0.1-1.2); Monocytes Percent Auto 11.2 % (2-11); Neutrophils Absolute Auto 2.5 x10*3/uL (2.0-8.3); Neutrophils Percent Auto 60.1 % (45-73); Platelet Count 127 X10*3/uL (160-400); Red Blood Count 4.29 X10*6/uL (4.60-5.80); Red Cell Distribution Width 12.2 % (11.0-16.0); Retic HGB Equivalent 37.8 pg (30.0-35.0); Reticulocyte Percent 2.5 % (0.5-1.8); Reticulocytes Absolute 0.106 X10*6/uL (0.026-0.095); White Blood Count 4.1 X10*3/uL (4.8-10.8)
[2022-03-10 07:42] LABS: Estimated Average Glucose 111 mg/dL; Hemoglobin A1c % 5.5 %
[2022-03-10 08:05] LABS: Alanine Aminotransferase 28 U/L (0-40); Albumin Level 4.2 g/dL (3.5-5.0); Alkaline Phosphatase 63 U/L (39-117); Anion Gap 13 (12-20); Aspartate Amino Transferase 22 U/L (5-37); Bilirubin Total 1.1 mg/dL (0.0-1.0); Blood Urea Nitrogen 15 mg/dL (9-16); Calcium 9.4 mg/dL (8.4-10.2); Carbon Dioxide 27 mmol/L (22-29); Chloride 105 mmol/L (96-108); Cholesterol 182 mg/dL; Estimated Glomerular Filt Rate > 60; Glucose Random 97 mg/dL (60-115); HDL Cholesterol 63 mg/dL; Iron 137 mcg/dL (45-160); LDL Cholesterol Calculated 100 mg/dl; Percent Iron Saturation 40 % (15-50); Potassium 4.4 mmol/L (3.3-5.1); Sodium 141 mmol/L (135-145); Total Iron Binding Capacity 344 mcg/dL (228-428); Total Protein 6.5 g/dL (6.5-8.0); Triglycerides 99 mg/dL; Unsaturated Iron Binding 207 ug/dL
[2022-03-10 08:14] LABS: Ferritin 252 ng/mL (20-250); Free T4 (Free Thyroxine) 0.88 ng/dL (0.71-1.85); Prostate Specific Antigen Scr 1.24 ng/mL (<0.05-4.0); Thyroid Stimulating Hormone 7.88 uIU/mL (0.32-4.0)
[2022-03-10 08:45] LABS: Folate 14.7 ng/mL (> or = 4.0); Vitamin B12 816 pg/mL (200-900)
== END 2022-03-10 06:36 | disposition home or self-care (01) ==
LOC: HO.LAB 06:35
PROVIDERS: PCP Internal Medicine; Visit Provider Internal Medicine
DX: Z12.5 Encounter for screening for malignant neoplasm of prostate (principal); E78.00 Pure hypercholesterolemia, unspecified
CPT/HCPCS: 36415; 80053; 80061; 82607; 82728; 82746; 83036; 83540; 84153; 84439; 84443; 85025; 85045

== ENCOUNTER 2022-03-30 07:15 | Day surgery (SDC) | payer OTHER, SELFPAY ==
[2022-03-30 07:15] VITALS: BMI 39.3
[2022-03-30 07:24] VITALS: BP 133/95; PULSE 90; RESP 18; TEMP 36.1; O2SAT 96
[2022-03-30] MEDS: Lactated Ringers 1,000 ML 50 ML IVCONT (07:48)
--- NOTE | 2022-03-30 07:51 | PC.NURSE ---
pt has cardiac clearance on the chart
--- NOTE | 2022-03-30 08:27 | P.CONAN_ITS ---
HPI - Anesthesia Eval Consult details Narrative: 66 yo male patient for Colonoscopy [facility] Active Problems Active Problems: All Active Problems (Updated 03/30/22 @ 08:52 by Shahrzad Bowles MD) Biventricular ICD (Implantable cardioverter-defibrillator) in place (Acute) SHAR (obstructive sleep apnea) (Acute) - Uses CPAP every night Cardiomyopathy Echo 11/16/21 EF 15-20% Thrombocytopenia Plt 127 (03/10/22) First degree AV block (Acute) Erectile dysfunction (Acute) LBBB (left bundle branch block) (Acute) Hypothyroid (Acute) Vitamin B12 deficiency (Acute) Annual physical exam (Acute) Mass on back (Acute) Paroxysmal atrial fibrillation (Acute) Cancer of oropharynx (Acute) Obesity (BMI 30-39.9) (Acute) Congestive heart failure (Acute) Type 2 diabetes mellitus with hyperglycemia- Patient denies. Never treated for DM. Sugars a little high in past but after weight loss following throat cancer, numbers have been low Hypercholesterolemia (Acute) Hypertension (Acute) Past Medical History Medical History Anxiety Atrial fibrillation Cancer of oropharynx Cardiomyopathy Congestive heart failure Erectile dysfunction Fatty liver Hypercholesterolemia Hypertension Left bundle branch block Obesity (BMI 30-39.9) Paroxysmal atrial fibrillation Vitamin D deficiency Family History Family History Father Lung cancer Mother Diabetes Brother Substance abuse Family history of problems with anesthesia: No Surgical History Surgical History History of bilateral knee arthroplasty History of cardioversion History of implantable cardioverter-defibrillator (ICD) insertion History of tonsillectomy Hx of cholecystectomy Hx of knee surgery History of Problems with Anesthesia: No Social History Social History Housing: House Alcohol intake: current Alcohol intake frequency: holidays/special occasions only Patient Tobacco Use Status: Never used Tobacco e-Cigarette/Vaping Use: Never Used Second Hand Smoke Exposure: No Are you DNR?: No Advance Directives: No Advance Directives Information Provided: Yes Nutrition Risks: No Nutritional Risk service: Yes Current occupational status: employed Cognitive needs: No Hearing needs: No Vision needs: Yes Meds Allergies Allergy/AdvReac Type Severity Reaction Status Date / Time No Known Allergies Allergy Verified 02/08/22 14:30 Active Medications: Current Medications Lactated Ringer's (Lr) 1,000 mls @ 50 mls/hr IVCONT .Q20H MAY Last Admin: 03/30/22 07:48 Dose: 50 mls/hr Sodium Biphosphate/Sodium Phosphate (Sodium Phosphate,[place]-Dibasic 133 Ml Enema) 133 ml [place] ONCE PRN PRN Reason: Poor Colonoscopy Prep Results Home Medications Medication Instructions Recorded Confirmed Last Taken Type pilocarpine HCl 5 mg tablet 5 mg PO BID 07/01/21 02/08/22 03/29/22 History coenzyme Q10 200 mg capsule (Co 400 mg PO DAILY 10/12/21 02/08/22 03/29/22 History Q-10) amlodipine 5 mg tablet 10 mg PO DAILY 01/21/22 02/08/22 03/29/22 History Exam Exam Date and Time: March 30, [id number] Height,Weight and Vital Signs: Height 6 ft Weight 131.542 kg Last Vital Signs Temp 97 F 03/30/22 07:24 Pulse 90 03/30/22 07:24 Resp 18 03/30/22 07:24 BP 133/95 H 03/30/22 07:24 Pulse Ox 96 03/30/22 07:24 O2 Del Method 03/30/22 07:24 Airway Mallampati Class: II TM Dist: >3cm Neck ROM: Full Loose/Missing/Broken Teeth: Yes (Missing teeth bottom) Heart: Regular with some extra beats (Paced rhythm with extra beats on monitor) Lungs: CTAB Assessment and Plan Assessment Anesthesia Assessment: Anesthesia Plan Discussed and Chart Reviewed Final Anesthetic Review Family History of Problems with Anesthesia: No History of Problems with Anesthesia: No NPO: Yes ASA Class: IV Final Preanesthetic Review: No Changes in Pt Med Stat, Meds/Allgs Chart Reviewed, Consent Obtained/Reviewed and Anes Risks/Benef Reviewed Patient Risk: High Procedure Risk: Low Assessment/Block/Sedation in SS: Assess/Block/Sedation-SS Anesthetic Plan Anesthetic Plan: MAC: Disposition: Standard PACU
[2022-03-30 09:33] VITALS: BP 114/68; PULSE 77; RESP 14; TEMP 36.8; O2SAT 99
--- NOTE | 2022-03-30 09:37 | PM.OP ---
Brief Operative Note Date of Service: 03/30/22 Pre-op diagnosis: Rectal bleeding Post-op diagnosis: other (Internal hemorrhoids, Diverticulosis) Procedure: Colonoscopy to the cecum Surgeon: Chava Maza Anesthesia: MAC Was an Principal Product Manager used for this Procedure?: No Estimated blood loss (mL): 0 Pathology: none sent Condition: stable Disposition: PACU
[2022-03-30 09:48] VITALS: BP 122/71; PULSE 88; RESP 16; TEMP 36.8; O2SAT 97
--- NOTE | 2022-03-30 21:03 | OP_ITS ---
SURGEON: Chava Maza MD INDICATIONS: The patient presents for evaluation of intermittent hematochezia. Full consent has been obtained from him for this, including risks of bleeding and perforation. PREOPERATIVE DIAGNOSIS: Hematochezia. POSTOPERATIVE DIAGNOSIS: PROCEDURE PERFORMED: Colonoscopy to the cecum. ESTIMATED BLOOD LOSS: COMPLICATIONS: ANESTHESIA: Medications used, monitored anesthesia care. ASSISTANTS: SPECIMENS: POSTOPERATIVE DIAGNOSES: Hematochezia, internal hemorrhoids, diverticulosis. DESCRIPTION OF PROCEDURE: The patient was placed in the left lateral decubitus position. The digital rectal exam revealed no abnormalities. The Olympus video pediatric colonoscope was entered into the rectum and advanced easily to the cecum. Once in the cecum, I did identify a normal-appearing cecal pouch with appendiceal orifice and a normal-appearing ileocecal valve. The entire cecum was ileocecal valve appeared normal. The scope was slowly withdrawn, assessing all mucosal surfaces carefully. Preparation was excellent. I did not visualize any other sign of polyps, colitis, nor angiodysplasia. There was a scattered amount of diverticula in the ascending colon and transverse colon, with a mild amount of diverticulosis in the sigmoid and descending colon. There was no sign of polyps, colitis, nor angiodysplasia. In the rectum, the scope was retroflexed visualizing internal hemorrhoids, but no other pathology. The rectal mucosa appeared normal. Scope was straightened and withdrawn from the patient. He tolerated the procedure well and was returned to recovery area in stable condition. IMPRESSION: 1. Diverticulosis. 2. Internal hemorrhoids. PLAN: Given the clinical history, his recent bleeding is currently seemed consistent with that of a perianal source such as the hemorrhoids. He was advised to try to avoid constipation with fiber and/or MiraLax as needed. He was advised to resume his Eliquis today. Given 2 previous negative colonoscopies and no family history of colon cancer, I would recommend a repeat colonoscopy in 10 years. He would otherwise see me on a p.r.n. basis. This has been discussed with his . MD DOREEN Black/VINEET / [phone]
== END 2022-03-30 10:19 | disposition home or self-care (01) ==
PROVIDERS: PCP Internal Medicine; Visit Provider Internal Medicine
PROC: 0DJD8ZZ Inspection of Lower Intestinal Tract, Via Natural or Artificial Opening Endoscopic (ICD-10-PCS; CPT 45378; principal; 2022-03-30 08:40)
DX: K62.5 Hemorrhage of anus and rectum (principal); K57.30 Diverticulosis of large intestine without perforation or abscess without bleeding; K64.8 Other hemorrhoids; K76.0 Fatty (change of) liver, not elsewhere classified; G47.33 Obstructive sleep apnea (adult) (pediatric); E78.00 Pure hypercholesterolemia, unspecified; I11.0 Hypertensive heart disease with heart failure; I50.9 Heart failure, unspecified; I44.7 Left bundle-branch block, unspecified; E11.65 Type 2 diabetes mellitus with hyperglycemia; I48.0 Paroxysmal atrial fibrillation; Z95.810 Presence of automatic (implantable) cardiac defibrillator; Z79.01 Long term (current) use of anticoagulants; Z79.899 Other long term (current) drug therapy; Z85.818 Personal history of malignant neoplasm of other sites of lip, oral cavity, and pharynx
CPT/HCPCS: 45378

== ENCOUNTER → 2022-04-14 07:53 | Outpatient (REF) | payer OTHER, SELFPAY ==
--- NOTE | 2022-04-14 07:56 | CA_ITS ---
Transthoracic Echocardiogram/Limited Patient (Last, First, Middle): Kem Garibay M Gender: Male Date of : 1955 Age: 66 Procedure Date: 04/14/2022 Procedure Type: Transthoracic Echocardiogram/Limited Location: OP Height: 185.42 cm Weight: 129.28 kg BSA: 2.50 m2 Heart Rate: 72 bpm Crm Architect: [email or web address] Referring MD: Roel Benjamin MD Academic Program Specialist: Roel Benjamin MD Symptoms: I42.9 - Cardiomyopathy, unspecified Study Quality: Adequate w contrast ECG Rhythm: Sinus with V paced Conclusions: - Low normal LV systolic function with LVEF of 50-55% with impaired relaxation filling pattern Findings Procedure Information Contrast agent, definity, is being given per protocol without apparent complications. Left Ventricle Normal left ventricular cavity size. There is normal left ventricular wall thickness. The left ventricular systolic function is low normal. The visually estimated ejection fraction is between 50-55%. Spectral Doppler is indicative of an impaired relaxation filling pattern. E/E prime ratio is between 8 and 15 consistent with indeterminate filling pressures. Pericardium/Pleural There is no evidence of pericardial effusion. Prior Study Comparison Changes noted compared to prior study dated: 11/16/2021. LV systolic function is significantly improved Measurements 2D Linear Measurements LVOT Diam: 2.50 3.0+(-)1.3 cm 2D Systolic Function EF 4C: 52.10 >55% EF 2C: 48.80 >55% EF BiP: 49.80 >55% Mitral Valve MV Pk E: 0.83 MV PK A: 0.90 MV Decel Time: 163.00 E/A: 0.90 E'Lateral: 5.44 E'Medial: 6.64 E/E' Med: 12.40 E/E' Lat: 15.20 PHT: 48.00 MVA PHT: 4.58 Decel Shasta: 5.06 LVOT LVOT Pk Benigno: 1.08 LVOT Mn Benigno: 0.74 LVOT VTI: 0.21 LVOT Pk Grad: 5.00 LVOT Mn Grad: 3.00 LVOT Diam: 2.50 LVOT Area: 4.91 Diastolic Function MV Pk E: 0.83 MV Pk A: 0.90 E/A: 0.90 E'Medial: 6.64 E/E' Med: 12.40 E' Laterial: 5.44 E/E' Lat: 15.20 Tricuspid Valve RA Press: 3.00 Updated in Other Vendor System with Status of Final Roel Benjamin MD electronically signed on 04/15/2022 1:11:15 PM with status of Final
== END ==
LOC: HO.CARD 07:53
PROVIDERS: PCP Internal Medicine; Visit Provider Internal Medicine Cardiovascular Disease
DX: I42.9 Cardiomyopathy, unspecified (principal)
CPT/HCPCS: 93308; Q9957

== ENCOUNTER 2022-04-19 06:00 | Outpatient (REF) | payer OTHER, SELFPAY ==
[2022-04-19 08:28] LABS: Free T4 (Free Thyroxine) 0.99 ng/dL (0.71-1.85); Thyroid Stimulating Hormone 5.96 uIU/mL (0.32-4.0)
== END 2022-04-19 06:01 | disposition home or self-care (01) ==
LOC: HO.LAB 06:00
PROVIDERS: PCP Internal Medicine; Visit Provider Internal Medicine
DX: E03.9 Hypothyroidism, unspecified (principal)
CPT/HCPCS: 36415; 84439; 84443

== ENCOUNTER → 2022-05-11 13:59 | Outpatient (BNVA) | payer OTHER, SELFPAY | PROVIDERS: PCP Internal Medicine; Referring Provider Internal Medicine; Visit Provider Internal Medicine Cardiovascular Disease | DX: I42.9 Cardiomyopathy, unspecified (principal); I48.0 Paroxysmal atrial fibrillation; Z95.810 Presence of automatic (implantable) cardiac defibrillator | CPT/HCPCS: 93005 ==

== ENCOUNTER 2022-05-16 06:12 | Outpatient (REF) | payer OTHER, SELFPAY ==
[2022-05-16 07:45] LABS: Appearance Urine Clear; Color Urine Yellow; Glucose Urine UA Negative (Negative); Leukocyte Esterase Urine Negative (Negative); Nitrite Urine Negative (Negative); PH 5.5 (5.0-9.0); Urine Blood Negative (Negative); Urine Ketones Negative (Negative); Urine Protein Negative (Neg-Trace)
[2022-05-16 07:51] LABS: Bacteria Urine None Seen (None Seen); Hyaline Casts Urine 0-2 /LPF (0-2); RBC Urine 0-2 /HPF (0-2); Squamous Epithelial Cell Urine 0-2 /HPF (0-2); WBC Urine 0-5 /HPF (0-5)
[2022-05-16 08:25] LABS: Anion Gap 14 (12-20); Blood Urea Nitrogen 11 mg/dL (9-16); Calcium 9.2 mg/dL (8.4-10.2); Carbon Dioxide 24 mmol/L (22-29); Chloride 104 mmol/L (96-108); Estimated Glomerular Filt Rate > 60; Glucose Random 159 mg/dL (60-115); Potassium 4.2 mmol/L (3.3-5.1); Sodium 138 mmol/L (135-145)
[2022-05-16 08:43] LABS: Free T4 (Free Thyroxine) 1.02 ng/dL (0.71-1.85)
== END 2022-05-16 06:13 | disposition home or self-care (01) ==
LOC: HO.LAB 06:12
PROVIDERS: PCP Internal Medicine; Visit Provider Internal Medicine Cardiovascular Disease
DX: I48.0 Paroxysmal atrial fibrillation (principal); E03.9 Hypothyroidism, unspecified
CPT/HCPCS: 36415; 80048; 81001; 84439

== ENCOUNTER 2022-07-04 06:22 | Outpatient (REF) | payer OTHER, SELFPAY ==
[2022-07-04 08:30] LABS: Thyroid Stimulating Hormone 7.07 uIU/mL (0.32-4.0)
== END 2022-07-04 06:23 | disposition home or self-care (01) ==
LOC: HO.LAB 06:22
PROVIDERS: PCP Internal Medicine; Visit Provider Internal Medicine
DX: E03.9 Hypothyroidism, unspecified (principal)
CPT/HCPCS: 36415; 84439; 84443

== ENCOUNTER → 2022-08-11 08:22 | Outpatient (BNVA) | payer OTHER, SELFPAY | PROVIDERS: PCP Internal Medicine; Referring Provider Internal Medicine; Visit Provider Internal Medicine Cardiovascular Disease ==

== ENCOUNTER 2022-08-22 06:03 | Outpatient (REF) | payer OTHER, SELFPAY | END 2022-08-22 06:04 | disposition home or self-care (01) | LOC: HO.LAB 06:03 | PROVIDERS: PCP Internal Medicine; Visit Provider Internal Medicine | DX: E03.9 Hypothyroidism, unspecified (principal) | CPT/HCPCS: 36415; 84439; 84443 ==

== ENCOUNTER → 2022-09-12 23:59 | Outpatient (BNV) | payer OTHER, SELFPAY ==
--- NOTE | 2022-09-14 14:38 | MHC.OFFVIS ---
Intake Intake Visit Reasons: Remote HF Monitoring- [facility] Allergies No Known Allergies Allergy (Verified 07/05/22 12:59) [facility] Medical History (Updated 07/05/22 @ 13:22 by Mario Dickerson MD) Annual physical exam Anxiety Atrial fibrillation Cancer of oropharynx Cardiomyopathy Congestive heart failure Erectile dysfunction Fatty liver Hypercholesterolemia Hypertension Left bundle branch block Obesity (BMI 30-39.9) Paroxysmal atrial fibrillation Vitamin D deficiency Surgical History History of bilateral knee arthroplasty History of cardioversion History of implantable cardioverter-defibrillator (ICD) insertion History of tonsillectomy Hx of cholecystectomy Hx of knee surgery Family History (Updated 07/05/22 @ 13:00 by Laura Pedersen CMA) Father Lung cancer Mother Diabetes Brother Substance abuse Social History (Updated 07/05/22 @ 13:26 by Mario Dickerson MD) Housing: House Alcohol intake: current Alcohol intake frequency: holidays/special occasions only Patient Tobacco Use Status: Never used Tobacco e-Cigarette/Vaping Use: Never Used Second Hand Smoke Exposure: No service: Yes Current occupational status: employed Cognitive needs: No Hearing needs: No Vision needs: Yes Office Procedures Cardiac Device Check Cardiac Device Check Details: Remote heart failure report generated 09/12/2022. Heart failure parameters are stable [id number] Cardiac Device Interrogation, cardio physiologic monitor Procedure code (CPT) selection complete Coding Level of Care Code Procedure Only Diagnoses CPT Codes Cardiac Device Check - Cardiac Device 15: [id number] Cardiac Device Interrogation, cardio physiologic monitor ([id number])
== END ==
PROVIDERS: PCP Internal Medicine; Visit Provider Internal Medicine Cardiovascular Disease
DX: I48.0 Paroxysmal atrial fibrillation (principal); Z95.810 Presence of automatic (implantable) cardiac defibrillator
CPT/HCPCS: 93297

== ENCOUNTER → 2022-10-11 23:59 | Outpatient (BNV) | payer OTHER, SELFPAY ==
--- NOTE | 2022-10-13 11:29 | A.OFFVIS_ITS ---
Intake Intake Visit Reasons: Remote ICD check- [facility] Allergies No Known Allergies Allergy (Verified 07/05/22 12:59) [facility] Medical History (Updated 07/05/22 @ 13:22 by Mario Dickerson MD) Annual physical exam Anxiety Atrial fibrillation Cancer of oropharynx Cardiomyopathy Congestive heart failure Erectile dysfunction Fatty liver Hypercholesterolemia Hypertension Left bundle branch block Obesity (BMI 30-39.9) Paroxysmal atrial fibrillation Vitamin D deficiency Surgical History History of bilateral knee arthroplasty History of cardioversion History of implantable cardioverter-defibrillator (ICD) insertion History of tonsillectomy Hx of cholecystectomy Hx of knee surgery Family History (Updated 07/05/22 @ 13:00 by Laura Pedersen CMA) Father Lung cancer Mother Diabetes Brother Substance abuse Social History (Updated 07/05/22 @ 13:26 by Mario Dickerson MD) Housing: House Alcohol intake: current Alcohol intake frequency: holidays/special occasions only Patient Tobacco Use Status: Never used Tobacco e-Cigarette/Vaping Use: Never Used Second Hand Smoke Exposure: No service: Yes Current occupational status: employed Cognitive needs: No Hearing needs: No Vision needs: Yes Office Procedures Cardiac Device Check Cardiac Device Check Details: Remote ICD report generated 10/11/2022. ICD function is adequate. Bi V pacing 97% of time. No atrial fibrillation noted [id number] Cardiac Interrogation, implant defibrillator w/interim Procedure code (CPT) selection complete Coding Level of Care Code Procedure Only Diagnoses CPT Codes Cardiac Device Check - Cardiac Device 13: [id number] Cardiac Interrogation, implant defibrillator w/interim ([id number])
== END ==
PROVIDERS: PCP Internal Medicine; Visit Provider Internal Medicine Cardiovascular Disease
DX: I44.0 Atrioventricular block, first degree (principal); Z95.810 Presence of automatic (implantable) cardiac defibrillator
CPT/HCPCS: 93295

== ENCOUNTER 2022-10-19 09:55 | Emergency (ER) | payer OTHER, SELFPAY ==
[2022-10-19 11:31] VITALS: BP 150/51; PULSE 65; RESP 16; TEMP 36.7; O2SAT 97; BMI 39.5
--- NOTE | 2022-10-19 11:31 | ED.SKABFB ---
HPI - Skin/Abscess/Foreign Bdy General Chief complaint: Skin/Abscess/Foreign Body Stated complaint: red , swollen leg Time Seen by Provider: 10/19/22 12:55 Source: patient and family Mode of arrival: ambulatory Limitations: no limitations History of Present Illness HPI narrative: 66 yo male with history of afib on eliquis, CHF, HTN, HLD here with complaints of waking with left lower extremity being painful, red and swollen noted today. On Monday had of temp 100F, chills x 24 hrs. No fever yesterday or today. No injury or trauma. Patient reports he is taking his Eliquis every day with no missed doses. Related Data Home Medications Medication Instructions Recorded Confirmed pilocarpine HCl 5 mg tablet 5 mg PO BID 07/01/21 07/05/22 coenzyme Q10 200 mg capsule (Co 400 mg PO DAILY 10/12/21 07/05/22 Q-10) Previous Rx's Medication Instructions Recorded CPAP Supplies #1 ea 05/05/20 CPAP Resmed Full face MASK Large #1 ea 09/03/20 Pressure 10 cm humudified air tadalafil 10 mg tablet (Cialis) 10 mg PO DAILY PRN sexual activity 09/03/20 30 days #14 tabs cyanocobalamin (vitamin B-12) 1,000 mcg PO DAILY #30 caps 07/01/21 1,000 mcg capsule losartan 100 mg tablet 100 mg PO DAILY #90 tabs 11/12/21 apixaban 5 mg tablet (Eliquis) 5 mg PO BID #180 tabs 02/08/22 metoprolol succinate 25 mg 25 mg PO DAILY 90 days #90 tabs 05/10/22 tablet,extended release 24 hr dronedarone 400 mg tablet (Multaq) 400 mg PO BID #60 tabs 05/11/22 atorvastatin 10 mg tablet 10 mg PO DAILY #90 tabs 07/25/22 levothyroxine 125 mcg tablet 125 mcg PO DAILY 30 days #30 tabs 08/23/22 amlodipine 5 mg tablet 5 mg PO DAILY #90 tabs 10/14/22 cephalexin 500 mg capsule 500 mg PO BID #14 caps 10/19/22 doxycycline monohydrate 100 mg 100 mg PO BID #14 caps 10/19/22 capsule Allergies Allergy/AdvReac Type Severity Reaction Status Date / Time No Known Allergies Allergy Verified 10/19/22 11:36 Review of Systems Review of Systems: Yes all other systems are reviewed and are negative Constitutional: Constitutional: Reports no additional constitutional complaints, Denies body ache(s), Denies chills, Denies fever(s), Denies headache(s) and Denies weakness Eyes: Eyes: Reports no additional eye complaints and Denies change in vision ENT: Reports system reviewed and no additional complaints, except as documented, Denies dizziness, Denies headache(s), Denies nasal congestion, Denies nasal discharge and Denies neck pain Cardiovascular: Cardiovascular: Reports no additional cardiovascular complaints, Denies chest pain, Denies leg edema and Denies dyspnea Respiratory: Respiratory: Reports no additional respiratory complaints, Denies cough and Denies dyspnea Gastrointestinal: Gastrointestinal: Reports no additional gastrointestinal complaints, Denies abdominal pain, Denies diarrhea, Denies nausea and Denies vomiting Genitourinary: Genitourinary: Denies urinary incontinence Musculoskeletal: Musculoskeletal: Reports no additional musculoskeletal complaints, Denies back pain, Denies arthralgias, Denies joint swelling, Denies neck pain, Denies numbness and Denies tingling Integumentary/Breasts: Skin/Breast: Reports system reviewed and no additional complaints, except as docu, Reports swelling, Reports erythema and Denies rash Neurologic: Reports system reviewed and no additional complaints, except as documented, Denies Abnormal speech present, Denies dizziness, Denies headache(s), Denies numbness, Denies tingling and Denies weakness PMFSH Past Medical History Attestation statement: The following information was validated with the patient. Source: old records reviewed and nursing notes reviewed Medical History Annual physical exam Anxiety Atrial fibrillation Cancer of oropharynx Cardiomyopathy Congestive heart failure Erectile dysfunction Fatty liver Hypercholesterolemia Hypertension Left bundle branch block Obesity (BMI 30-39.9) Paroxysmal atrial fibrillation Vitamin D deficiency Surgical History History of bilateral knee arthroplasty History of cardioversion History of implantable cardioverter-defibrillator (ICD) insertion History of tonsillectomy Hx of cholecystectomy Hx of knee surgery Family History Family History Father Lung cancer Mother Diabetes Brother Substance abuse Social History Social History Housing: House Alcohol intake: current Alcohol intake frequency: holidays/special occasions only Patient Tobacco Use Status: Never used Tobacco e-Cigarette/Vaping Use: Never Used Second Hand Smoke Exposure: No Advance Directives: Yes Advance Directives Information Provided: Yes Advance Directives on File: No service: Yes Current occupational status: employed Cognitive needs: No Hearing needs: No Vision needs: Yes Physical Exam Vital Signs: Vital Signs: Last Vital Signs Temp 98.0 F 10/19/22 11:31 Pulse 65 10/19/22 11:31 Resp 16 10/19/22 11:31 BP 150/51 H 10/19/22 11:31 Pulse Ox 97 10/19/22 11:31 O2 Del Method Room Air 10/19/22 11:31 BMI result Body Mass Index 39.5 Const: General: cooperative, healthy appearing, comfortable and no acute distress Orientation/consciousness: patient oriented x3 Limitations: no limitations HEENT: Head: Yes normal to inspection Ears: hearing grossly normal bilaterally General nose exam: Normal external nose present Face and sinus: Yes normal facial exam Mouth: Normal oral and palatal mucosa present Throat: Yes posterior oropharynx normal Eyes: General: appearance normal, both eyes and all related structures Pupils: Equal, round and reactive pupils present Neck: Neck: Yes normal visual inspection Chest: Chest palpation & inspection: normal inspection of the chest Resp: Effort & Inspection: normal respiratory effort Auscultation: clear to auscultation bilaterally Cardio: Rate: regular rate Rhythm: regular rhythm Peripheral pulses: Peripheral pulses 2+ throughout GI: Inspection: Yes normal to inspection Palpation (GI): Soft to palpation and nontender Auscultation: normal bowel sounds Back/Spine/Pelvis: Thoracic/Lumbar Spine: thoracic and lumbar spine normal to inspection Skin: General skin exam: no rashes or lesions noted Neuro: General: patient oriented x3, no focal motor deficits and normal sensation to monofilament Cranial nerves: Yes Equal, round and reactive pupils present Cognition (Neuro): normal cognition Speech: No Abnormal speech present Gait exam (Neuro): Normal gait present Motor exam (neuro): 5/5 motor strength present throughout Extrem: Other: To the left lower extremity the patient has erythema, warmth, tenderness. Mild swelling The compartments are soft and compressible He has normal DP and PT pulses Normal distal sensation Active and passive range of motion left lower extremity including foot and ankle are normal Course Course Course Narrative: This is a rapid medical exam. Deferred additional HPI, ROS, PE to primary provider. 66 yo male with history of afib on eliquis, CHF, HTN, HLD here with complaints of waking with left lower extremity being painful, red and swollen. Monday had of temp 100F, chills x 24 hrs. LLE has redness, swelling, pain. Will obtain labs. Patient reports compliance with eliquis with NO missed doses. VSS Reevaluation(s) Reevaluation #1: Reviewed labs which are unremarkable. Will initiate oral antibiotics The area was marked with a skin marker and I recommend the patient and his take pictures to monitor progression. They should return for any worsening signs or symptoms which were reviewed with them. Medical Decision Making Medical Decision Making [facility] Narrative: 66 yo male with history of afib on eliquis, CHF, HTN, HLD here with complaints of waking with left lower extremity being painful, red and swollen noted today. On Monday had of temp 100F, chills x 24 hrs. No fever yesterday or today. No injury or trauma. Patient reports he is taking his Eliquis every day with no missed doses. On exam patient has swelling, warmth, tenderness, erythema the left lower extremity. CMS is intact distally. Passive and active range of motion of the left lower extremity including ankle and foot. Afebrile in triage Will obtain labs Differential Diagnosis Differential Diagnoses: The differential diagnosis associated with the presentation includes Cellulitis Low concern for compartment syndrome with soft compartments that are compressible Low concern for necrotizing fasciitis with gradual progression of symptoms, patient nontoxic appearing Low concern for DVT as patient is on Eliquis and has been compliant with no missed doses Admission/Observation Consideration of admission/observation: Escalation of care including admission/observation considered Mild cellulitis on exam, patient nontoxic, normal lab I do not feel that he needs IV antibiotics or admission Lab Data [facility] Lab Attestation statement: I reviewed the patient's lab results. Unremarkable 10/19/22 12:19 10/19/22 12:19 Labs: Lab Results 10/19/22 10/19/22 10/19/22 Range/Units 12:19 12:19 12:19 WBC 5.9 (4.8-10.8) X10*3/uL RBC 4.39 L (4.60-5.80) X10*6/uL Hgb 14.0 (14.0-18.0) g/dl Hct 42.2 (42.0-52.0) % MCV 96.1 (80.0-98.0) fL MCH 31.9 (27.0-33.0) pg MCHC 33.2 (31.0-36.0) g/dl RDW 12.5 (11.0-16.0) % Plt Count 120 L (160-400) X10*3/uL MPV 9.2 L (9.4-12.4) fL Immature Gran % (Auto) 0.3 (0.0-0.4) % Neut % (Auto) 74.8 H (45-73) % Lymph % (Auto) 15.0 L (20-40) % Brown % (Auto) 8.7 (2-11) % Eos % (Auto) 1.0 (0-4) % Baso % (Auto) 0.2 (0-2) % Lymph # (Auto) 0.9 L (1.2-4.9) X10*3/uL Brown # (Auto) 0.5 (0.1-1.2) X10*3/uL Eos # (Auto) 0.1 (0.0-0.4) X10*3/uL Baso # (Auto) 0.0 (0.0-0.2) X10*3/uL Abs Immat Gran (auto) 0.02 (0.00-0.03) X10*3/uL Absolute Neuts (auto) 4.4 (2.0-8.3) x10*3/uL Absolute Nucleated RBC 0.000 (0.0-0.012) X10*3/uL Nucleated RBC % (auto) 0.0 (0.0-0.2) /100WBC Sodium 143 (135-145) mmol/L Potassium 4.6 (3.3-5.1) mmol/L Chloride 110 H (96-108) mmol/L Carbon Dioxide 26 (22-29) mmol/L Anion Gap 12 (12-20) BUN 14 (9-16) mg/dL Creatinine 1.01 (0.5-1.4) mg/dL Estim Creat Clear Calc 106.9 Estimated GFR > 60 Random Glucose 123 H (60-115) mg/dL Lactic Acid 1.3 (0.5-2.0) mmol/L Calcium 10.4 H D (8.4-10.2) mg/dL Total Bilirubin 0.9 (0.0-1.0) mg/dL Direct Bilirubin 0.3 (0.0-0.5) mg/dL AST 22 (5-37) U/L ALT 36 (0-40) U/L Alkaline Phosphatase 63 (39-117) U/L Total Protein 7.4 (6.5-8.0) g/dL Albumin 4.2 (3.5-5.0) g/dL Independent Historian Clinical information obtained from an independent historian. History obtained from or confirmed by: Parent The patient's is at the bedside-provides additional HPI Tests considered The following testing was considered but not selected: No need for ultrasound-patient is compliant with his Eliquis with no missed doses, low concern for DVT Prescription Management I considered prescription management with: Antibiotic Patient with cellulitis requiring oral antibiotics Discharge Plan Discharge Clinical Impression: Cellulitis Patient Disposition: Home, Self-Care Instructions: Cellulitis (ED), Warm Compress or Soak (ED) Additional Instructions: Elevate the leg, warm compresses as needed Tylenol for pain as needed Return for increasing redness, swelling, pain, fever >100.4 Prescriptions: New doxycycline monohydrate 100 mg capsule 100 mg PO BID Qty: 14 0RF cephalexin 500 mg capsule 500 mg PO BID Qty: 14 0RF No Action losartan 100 mg tablet 100 mg PO DAILY Qty: 90 3RF metoprolol succinate 25 mg tablet extended release 24 hr 25 mg PO DAILY 90 Days Qty: 90 3RF atorvastatin 10 mg tablet 10 mg PO DAILY Qty: 90 3RF levothyroxine 125 mcg tablet 125 mcg PO DAILY 30 Days Qty: 30 3RF amlodipine 5 mg tablet 5 mg PO DAILY Qty: 90 1RF (DME) CPAP Supplies See Rx Instructions .Route .MEDSUPPLY Qty: 1 0RF Rx Instructions: As directed coenzyme Q10 [Co Q-10] 200 mg capsule 400 mg PO DAILY (DME) CPAP Resmed Full face MASK Large Pressure 10 cm humudified air See Rx Instructions .Route .MEDSUPPLY Qty: 1 0RF Rx Instructions: As directed tadalafil [Cialis] 10 mg tablet 10 mg PO DAILY PRN (Reason: sexual activity) 30 Days Qty: 14 4RF Rx Instructions: administer approximately 30min before sexual activity; do not use more than 1 dose per 24hrs pilocarpine HCl 5 mg tablet 5 mg PO BID cyanocobalamin (vitamin B-12) 1,000 mcg capsule 1,000 mcg PO DAILY Qty: 30 3RF Eliquis 5 mg tablet 5 mg PO BID Qty: 180 3RF Multaq 400 mg tablet 400 mg PO BID Qty: 60 5RF Rx Instructions: must administer with a meal/food Interventions: ED Discharge Assessment Last Done: 10/19/22 13:00 Discharge Date/Time: 10/19/22 13:01
[2022-10-19 12:25] LABS: MANUAL DIFF FLAG NO
[2022-10-19 12:28] LABS: Basophils Percent Auto 0.2 % (0-2); Eosinophils Absolute Auto 0.1 X10*3/uL (0.0-0.4); Hematocrit 42.2 % (42.0-52.0); Imm Gran Abs Auto 0.02 X10*3/uL (0.00-0.03); Imm Gran Pct Auto 0.3 % (0.0-0.4); Lymphocytes Absolute Auto 0.9 X10*3/uL (1.2-4.9); Mean Corpuscular HGB Conc 33.2 g/dl (31.0-36.0); Mean Corpuscular Hemoglobin 31.9 pg (27.0-33.0); Mean Corpuscular Volume 96.1 fL (80.0-98.0); Mean Platelet Volume 9.2 fL (9.4-12.4); Monocytes Absolute Auto 0.5 X10*3/uL (0.1-1.2); Monocytes Percent Auto 8.7 % (2-11); Neutrophils Absolute Auto 4.4 x10*3/uL (2.0-8.3); Neutrophils Percent Auto 74.8 % (45-73); Platelet Count 120 X10*3/uL (160-400); Red Blood Count 4.39 X10*6/uL (4.60-5.80); Red Cell Distribution Width 12.5 % (11.0-16.0); White Blood Count 5.9 X10*3/uL (4.8-10.8)
[2022-10-19 12:42] LABS: Lactic Acid 1.3 mmol/L (0.5-2.0)
[2022-10-19 12:47] LABS: Alanine Aminotransferase 36 U/L (0-40); Albumin Level 4.2 g/dL (3.5-5.0); Alkaline Phosphatase 63 U/L (39-117); Anion Gap 12 (12-20); Aspartate Amino Transferase 22 U/L (5-37); Bilirubin Direct 0.3 mg/dL (0.0-0.5); Bilirubin Total 0.9 mg/dL (0.0-1.0); Blood Urea Nitrogen 14 mg/dL (9-16); Calcium 10.4 mg/dL (8.4-10.2); Carbon Dioxide 26 mmol/L (22-29); Chloride 110 mmol/L (96-108); Creatinine Clr Calc Pharmacy 106.9; Estimated Glomerular Filt Rate > 60; Glucose Random 123 mg/dL (60-115); Potassium 4.6 mmol/L (3.3-5.1); Sodium 143 mmol/L (135-145); Total Protein 7.4 g/dL (6.5-8.0)
== END 2022-10-19 13:01 | disposition home or self-care (01) ==
PROVIDERS: Nurse Practitioner Family; Emergency Provider Emergency Medicine; PCP Internal Medicine
DX: L03.116 Cellulitis of left lower limb (principal); I11.0 Hypertensive heart disease with heart failure; I50.9 Heart failure, unspecified; E78.00 Pure hypercholesterolemia, unspecified; I48.0 Paroxysmal atrial fibrillation; Z79.01 Long term (current) use of anticoagulants; Z95.810 Presence of automatic (implantable) cardiac defibrillator
CPT/HCPCS: 36415; 80048; 80076; 83605; 85025; 87040; 99282; 99283

== ENCOUNTER 2022-10-27 14:06 | Outpatient (AMB) | payer OTHER, SELFPAY ==
[2022-10-27 14:10] VITALS: BP 142/80; PULSE 79; O2SAT 94; BMI 39.7
--- NOTE | 2022-10-27 14:10 | MHC.PC.OV ---
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 Accompanied by: Self / Same As Patient Allergies No Known Allergies Allergy (Verified 10/27/22 14:11) Tobacco use date assessed: 10/27/22 Fall risk assessment: No Falls in past year Last assessed Fall Risk: 10/27/22 Dental Screening Dental Screen Date: 10/27/22 Did you have a dental visit in the last 12 months?: No Did you have a dental problem in the last 6 months where you did not have access to dental care?: No Was dental information given to patient?: Patient has dentist HPI 3 month f/u HPI Details 66-year-old obese male with diabetes mellitus hypertension congestive heart failure history of cancer of the oropharynx paroxysmal atrial fibrillation hypothyroidism and cardiomyopathy last seen in June 2022. Patient is here for follow-up. Review of the notes recently was in the ER October 19 for left lower extremity pain treated for cellulitis with doxycycline and cephalexin. [facility] Medical History Annual physical exam Anxiety Atrial fibrillation Cancer of oropharynx Cardiomyopathy Congestive heart failure Erectile dysfunction Fatty liver Hypercholesterolemia Hypertension Left bundle branch block Obesity (BMI 30-39.9) Paroxysmal atrial fibrillation Vitamin D deficiency Surgical History History of implantable cardioverter-defibrillator (ICD) insertion History of tonsillectomy Hx of cholecystectomy History of bilateral knee arthroplasty History of cardioversion Hx of knee surgery Family History Father Lung cancer Mother Diabetes Brother Substance abuse Social History Housing: House Alcohol intake: current Alcohol intake frequency: holidays/special occasions only Patient Tobacco Use Status: Never used Tobacco e-Cigarette/Vaping Use: Never Used Second Hand Smoke Exposure: No service: Yes Current occupational status: employed Cognitive needs: No Hearing needs: No Vision needs: Yes Questionnaire PHQ-9 Over the last 2 weeks, how often have you been bothered by any of the following problems? 1. Little interest or pleasure in doing things: not at all 2. Feeling down, depressed, or hopeless: not at all 3. Trouble falling or staying asleep, or sleeping too much: not at all 4. Feeling tired or having little energy: not at all 5. Poor appetite or overeating: not at all 6. Feeling bad about yourself - or that you are a failure or have let yourself or your family down: not at all 7. Trouble concentrating on things, such as reading the newspaper or watching television: not at all 8. Moving or speaking so slowly that other people could have noticed. Or the opposite - being so fidgety or restless that you have been moving around a lot more than usual: not at all 9. Thoughts that you would be better off or of hurting yourself in some way: not at all Total score: 0 Depression Screening Interpretation: Negative Source: Developed by Drs. Chava Lynch, Leslie Menard, Brandon Bell and colleagues, with an educational sheridan from [employer]. Thrive Questionnaire Date Thrive assessed: 10/27/22 I am a: Patient What is your living situation today?: I have a steady place to live Within the past 12 months, did the food you bought not last and you didn't have the money to get more?: Never true Within the past 12 months, did you worry whether your food would run out before you got money to buy more?: Never true Do you have trouble paying for medicines?: No Do you have trouble getting transportation to medical appointments?: No Do you have trouble paying your heating and electricity bill?: No Do you have trouble taking care of your child, family member or friend?: No Do you have trouble with day-to-day activities such as bathing, preparing meals, shopping, managing finances, etc.?: No Are you currently unemployed and looking for a job?: No Are you interested in more education?: No Please select the resources that you would like help with: None Currently or been in a relationship where the following occur: no concerns reported AUDIT C Alcohol Use Questionnaire (AUDIT-C) 1. How often do you have a drink containing alcohol?: 2-4 times a month 2. How many drinks containing alcohol do you have on a typical day when you are drinking?: 3 or 4 3. How often do you have six or more drinks on one occasion?: Never Total Score: 3 GABRIELA-7 AMB Questionnaire GABRIELA-7 Date GABRIELA - 7 assessed: 10/27/22 Feeling nervous, anxious, or on edge: 0 = Not at all Not being able to stop or control worryin = Not at all Worrying too much about different things: 0 = Not at all Trouble relaxin = Not at all Being so restless that it is hard to sit still: 0 = Not at all Becoming easily annoyed or irritable: 0 = Not at all Feeling afraid as if something awful might happen: 0 = Not at all Total GABRIELA-7 score (0-4 normal; 5-9 mild; 10-14 moderate; 15-21 severe): 0 Source: Developed by Drs. Chava Lynch, Leslie Menard, Brandon Bell and colleagues, with an educational sheridan from [employer]. Physical exam (Primary Care) Vital Signs: Last Vital Signs Pulse 79 10/27/22 14:10 BP 142/80 H 10/27/22 14:10 Pulse Ox 94 10/27/22 14:10 Oxygen Delivery Method Room Air 10/27/22 14:10 BMI result Body Mass Index 39.7 Tobacco/Smoking Status: Tobacco use Status Tobacco use date assessed 10/27/22 10/27/22 14:12 Patient Tobacco Use Status Never used Tobacco 10/27/22 14:12 e-Cigarette/Vaping Use Never Used 10/27/22 14:12 PHQ-9: PHQ-9 Score PHQ-9: Total score 0 10/27/22 14:34 Depression Screening Interpretation: Negative Thrive Assessment: Date of Thrive Assessment Date Thrive assessed 10/27/22 10/27/22 14:12 Currently or been in a relationship where the following occur: no concerns reported Const General: alert; No acute distress Eyes Conjunctivae: conjunctivae normal Resp Auscultation: clear to auscultation bilaterally Cardio Rate: regular rate Rhythm: regular rhythm GI Inspection: Yes normal to inspection Extrem General: Yes normal to inspection and No edema Results AMB Hemoglobin A1c AMB Hemoglobin A1c 5.7 % Last Edit by Kerline Bennett on 10/27/22 14:37 Assessment and Plan Assessment & Plan (1) Cardiomyopathy: Comment: ICD December 2021 Code(s): I42.9 - Cardiomyopathy, unspecified Plan: Continue with cardiology follow-up. Routine testing of ICD (2) SHAR (obstructive sleep apnea): Code(s): G47.33 - Obstructive sleep apnea (adult) (pediatric) Plan: Discussed about CPAP use it more than 4 hours a night and benefits from this (3) Hypothyroid: Code(s): E03.9 - Hypothyroidism, unspecified Plan: Continue with the thyroid medication (4) Cancer of oropharynx: Comment: Dr. Sharp November 2018 Code(s): C10.9 - Malignant neoplasm of oropharynx, unspecified (5) Paroxysmal atrial fibrillation: Code(s): I48.0 - Paroxysmal atrial fibrillation Plan: Continue with anticoagulation with Eliquis 5 mg twice a day twice a year testing of kidneys (6) Obesity (BMI 30-39.9): Code(s): E66.9 - Obesity, unspecified Plan: Diet and exercise (7) Congestive heart failure: Code(s): I50.9 - Heart failure, unspecified Plan: Stable (8) Type 2 diabetes mellitus with hyperglycemia: Code(s): E11.65 - Type 2 diabetes mellitus with hyperglycemia Plan: Decrease the amount of carbohydrate intake, pasta, bread, rice and potatoes are all sugar and that is aside from all the sweet stuff, remember that fruits are good but they are Sweet also. Hemoglobin A1c goal of less than 6.5 patient is on diet control (9) Hypercholesterolemia: Code(s): E78.00 - Pure hypercholesterolemia, unspecified Plan: Avoid fried foods, chicken skin, eggs, butter margarine, pastries and meat. Be it pork or beef they have a lot of cholesterol LDL goal of less than 100 and triglyceride of less than 150. Patient is on atorvastatin 10 mg February last testing (10) Hypertension: Comment: Nuclear stress test July 2019 normal ejection fraction 54% LV dilatation Code(s): I10 - Essential (primary) hypertension Qualifiers: Hypertension type: essential hypertension Qualified Code(s): I10 - Essential (primary) hypertension Plan: Continue with blood pressure medication. Decrease salt intake and exercise continue with amlodipine 5 mg once a day losartan 100 mg once a day and metoprolol 25 mg once a day (11) Tinea pedis: Code(s): B35.3 - Tinea pedis Orders: Orders AMB Hemoglobin A1c Today Z13.9 - Encounter for screening, unspecified Free T4 (Free Thyroxine) Today E03.9 - Hypothyroidism, unspecified Complete Blood Count Auto Diff 3 Months E11.65 - Type 2 diabetes mellitus with hyperglycemia Free T4 (Free Thyroxine) 3 Months E11.65 - Type 2 diabetes mellitus with hyperglycemia Thyroid Stimulating Hormone 3 Months E11.65 - Type 2 diabetes mellitus with hyperglycemia Vitamin B12 and Folate 3 Months E11.65 - Type 2 diabetes mellitus with hyperglycemia Lipid Panel 3 Months E11.65 - Type 2 diabetes mellitus with hyperglycemia, E78.00 - Pure hypercholesterolemia, unspecified Prostate Specific Antigen Scr 3 Months E11.65 - Type 2 diabetes mellitus with hyperglycemia Thyroid Stimulating Hormone Today E03.9 - Hypothyroidism, unspecified Comprehensive Met. Panel 3 Months E11.65 - Type 2 diabetes mellitus with hyperglycemia Hemoglobin A1c 3 Months E11.65 - Type 2 diabetes mellitus with hyperglycemia Medications: Changed From pilocarpine HCl 5 mg PO BID C10.9 - Malignant neoplasm of oropharynx, unspecified To pilocarpine HCl 5 mg PO BID 180 tabs 3RF 90 days C10.9 - Malignant neoplasm of oropharynx, unspecified Refilled losartan 100 mg PO DAILY 90 tabs 3RF Coding Level of Care Code Est Pt Level 4 (63908) Diagnoses Cardiomyopathy I42.9 SHAR (obstructive sleep apnea) G47.33 Hypothyroid E03.9 Cancer of oropharynx C10.9 Paroxysmal atrial fibrillation I48.0 Obesity (BMI 30-39.9) E66.9 Congestive heart failure I50.9 Type 2 diabetes mellitus with hyperglycemia E11.65 Hypercholesterolemia E78.00 Essential hypertension I10 Hypertension type: essential hypertension Tinea pedis B35.3
== END 2022-10-27 14:51 | disposition home or self-care (01) ==
PROVIDERS: PCP Internal Medicine; Visit Provider Internal Medicine
DX: E11.65 Type 2 diabetes mellitus with hyperglycemia (principal); E03.9 Hypothyroidism, unspecified; I10 Essential (primary) hypertension; I42.9 Cardiomyopathy, unspecified; G47.33 Obstructive sleep apnea (adult) (pediatric); C10.9 Malignant neoplasm of oropharynx, unspecified; I48.0 Paroxysmal atrial fibrillation; E66.9 Obesity, unspecified; I50.9 Heart failure, unspecified; E78.00 Pure hypercholesterolemia, unspecified; B35.3 Tinea pedis
CPT/HCPCS: 83036; 99214

== ENCOUNTER 2022-11-03 06:37 | Outpatient (REF) | payer OTHER, SELFPAY ==
[2022-11-03 08:26] LABS: Free T4 (Free Thyroxine) 0.97 ng/dL (0.71-1.85); Thyroid Stimulating Hormone 2.74 uIU/mL (0.32-4.0)
== END 2022-11-03 06:38 | disposition home or self-care (01) ==
LOC: HO.LAB 06:37
PROVIDERS: PCP Internal Medicine; Visit Provider Internal Medicine
DX: E03.9 Hypothyroidism, unspecified (principal)
CPT/HCPCS: 36415; 84439; 84443

== ENCOUNTER → 2022-11-07 23:59 | Outpatient (BNV) | payer OTHER, SELFPAY ==
--- NOTE | 2022-11-07 15:36 | A.OFFVIS_ITS ---
Intake Intake Visit Reasons: Remote HF monitoring- [facility] Allergies No Known Allergies Allergy (Verified 10/27/22 14:11) [facility] Medical History Annual physical exam Anxiety Atrial fibrillation Cancer of oropharynx Cardiomyopathy Congestive heart failure Erectile dysfunction Fatty liver Hypercholesterolemia Hypertension Left bundle branch block Obesity (BMI 30-39.9) Paroxysmal atrial fibrillation Vitamin D deficiency Surgical History History of implantable cardioverter-defibrillator (ICD) insertion History of tonsillectomy Hx of cholecystectomy History of bilateral knee arthroplasty History of cardioversion Hx of knee surgery Family History Father Lung cancer Mother Diabetes Brother Substance abuse Social History Housing: House Alcohol intake: current Alcohol intake frequency: holidays/special occasions only Patient Tobacco Use Status: Never used Tobacco e-Cigarette/Vaping Use: Never Used Second Hand Smoke Exposure: No service: Yes Current occupational status: employed Cognitive needs: No Hearing needs: No Vision needs: Yes Office Procedures Cardiac Device Check Cardiac Device Check Details: Remote heart failure report generated 11/07/2022. Heart failure parameters are stable [id number] Cardiac Device Interrogation, cardio physiologic monitor Procedure code (CPT) selection complete Coding Level of Care Code Procedure Only CPT Codes Cardiac Device Check - Cardiac Device 15: 12104-[id number] Cardiac Device Interrogation, cardio physiologic monitor ([id number])
== END ==
PROVIDERS: PCP Internal Medicine; Visit Provider Internal Medicine Cardiovascular Disease
DX: I50.9 Heart failure, unspecified (principal); Z95.810 Presence of automatic (implantable) cardiac defibrillator
CPT/HCPCS: 93297

== ENCOUNTER 2022-11-08 13:42 | Outpatient (AMB) | payer OTHER, SELFPAY ==
[2022-11-08 13:49] VITALS: BP 120/80; PULSE 79; BMI 39.6
--- NOTE | 2022-11-08 13:49 | A.OFFVIS_ITS ---
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 Allergies No Known Allergies Allergy (Verified 10/27/22 14:11) Medication List - Last Reconciled 11/08/22 by Roel Benjamin MD amlodipine 5 mg PO DAILY apixaban (Eliquis) 5 mg PO BID atorvastatin 10 mg PO DAILY coenzyme Q10 (Co Q-10) 400 mg PO DAILY [CPAP Resmed Full face MASK Large Pressure 10 cm humudified air As directed] [CPAP Supplies As directed] cyanocobalamin (vitamin B-12) 1,000 mcg PO DAILY dronedarone (Multaq) 400 mg PO BID levothyroxine 125 mcg PO DAILY 30 days losartan 100 mg PO DAILY metoprolol succinate ER 25 mg PO DAILY 90 days pilocarpine HCl 5 mg PO BID 90 days tadalafil (Cialis) 10 mg PO DAILY PRN 30 days HPI HPI Comments History of Present Illness Details Tim comes for follow-up. He has been doing very well. He has been participating regular physical activity and losing weight. Uses CPAP regularly. Denies any prolonged palpitation irregular heartbeat. Denies any heart failure symptoms. Denies any lightheadedness, syncope. No exertional chest pain. No bleeding issues or neurologic events. Overall he says he feels great. [facility] Medical History Left bundle branch block Cardiomyopathy Annual physical exam Paroxysmal atrial fibrillation Obesity (BMI 30-39.9) Congestive heart failure Cancer of oropharynx Anxiety Erectile dysfunction Vitamin D deficiency Atrial fibrillation Fatty liver Hypercholesterolemia Hypertension Surgical History History of implantable cardioverter-defibrillator (ICD) insertion History of tonsillectomy Hx of cholecystectomy History of bilateral knee arthroplasty History of cardioversion Hx of knee surgery Family History Father Lung cancer Mother Diabetes Brother Substance abuse Social History Housing: House Alcohol intake: current Alcohol intake frequency: holidays/special occasions only Patient Tobacco Use Status: Never used Tobacco e-Cigarette/Vaping Use: Never Used Second Hand Smoke Exposure: No service: Yes Current occupational status: employed Cognitive needs: No Hearing needs: No Vision needs: Yes Review of Systems Const Denies chills, Denies fatigue, Denies fever(s), Denies frequent falls, Denies weakness, Denies weight gain and Denies weight loss ENT Denies dizziness Card Denies chest pain, Denies leg edema, Denies lightheadedness, Denies palpitations, Denies dyspnea, Denies dyspnea on exertion, Denies orthopnea and Denies other (loss of consciousness) Resp Denies cough, Denies dyspnea and Denies dyspnea on exertion GI Denies hematochezia and Denies change in stool character Musc Denies abnormal gait, Denies muscle weakness, Denies numbness, Denies radiating pain into limb and Denies tingling Neuro Denies abnormal gait, Denies dizziness, Denies frequent falls, Denies numbness, Denies tingling and Denies weakness Endo Denies fatigue and Denies palpitations Physical Exam Vital Signs: Last Vital Signs Pulse 79 11/08/22 13:49 BP 120/80 11/08/22 13:49 BMI result Body Mass Index 39.6 Office Procedures Cardiac Device Check Cardiac Device Check Details: Biventricular [facility] ICD in place. Programmed in DDDR at 60 beats per minute. Biventricular pacing 97% of time. No episodes of atrial fibrillation noted. Atrial pacing thresholds are stable and reprogrammed to enhance battery life. RV pacing thresholds are adequate and reprogrammed to provide adequate safety. LV pacing thresholds are slightly elevated and will continue monitor it. Atrial ventricular sensing is excellent. Pacing and shock lead impedance is stable. Battery life is at 7 years 20082-AC Cardiac Device Check, multi lead implantable defibrillator Procedure code (CPT) selection complete EKG Details: EKG shows normal sinus rhythm with LV pacing with QRS duration 146 milliseconds and QT interval of 440 milliseconds [id number], Complete Assessment & Plan Assessment & Plan (1) Cardiomyopathy: Comment: ICD December 2021 Code(s): I42.9 - Cardiomyopathy, unspecified Plan: Patient with cardiomyopathy related to left bundle-branch block with improvement in LV ejection fraction with neurohormonal modulation as well as cardiac resynchronization therapy. He is doing well with much improved symptoms and improve functionality. No signs or symptoms of heart failure. Continue to monitor for adequate cardiac resynchronization therapy. Continue current neurohormonal modulation with losartan as well as metoprolol therapy. Importance of medical therapy was discussed continue participate in weight loss program regular physical activity. Continue CPAP therapy. Continue rhythm control approach. Follow-up echocardiogram 6 months time. (2) Biventricular ICD (implantable cardioverter-defibrillator) in place: Code(s): Z95.810 - Presence of automatic (implantable) cardiac defibrillator Plan: Biventricular ICD in place, working well. Will follow remotely every month for heart failure and every 3 months for device check. Device is working well. (3) Paroxysmal atrial fibrillation: Code(s): I48.0 - Paroxysmal atrial fibrillation Plan: Paroxysmal atrial fibrillation has done very well with rhythm control approach will continue pursue rhythm control approach. Continue current are antiarrhythmic drug therapy with dronedarone. Will continue monitor remotely every 3 months for atrial fibrillation occurrence. Continue full oral anticoagulation with Eliquis. Continue participate in weight loss program. Continue CPAP therapy. Importance of medical therapy was discussed. Will follow up in the clinic in 6 months time, sooner p.r.n.. Thank you for allowing me to partake in his care Coding Level of Care Code Est Pt Level 4 (08213) Diagnoses Cardiomyopathy I42.9 Biventricular ICD (implantable cardioverter-defibrillator) in place Z95.810 Paroxysmal atrial fibrillation I48.0 CPT Codes Cardiac Device Check - Cardiac Device 6: 59954-LH Cardiac Device Check, multi lead implantable defibrillator ([id number]) EKG - CPT: 39921-Prekngnzzgqvworez, Complete ([id number])
== END 2022-11-08 14:40 | disposition home or self-care (01) ==
PROVIDERS: PCP Internal Medicine; Visit Provider Internal Medicine Cardiovascular Disease
DX: I42.9 Cardiomyopathy, unspecified (principal); Z95.810 Presence of automatic (implantable) cardiac defibrillator; I48.0 Paroxysmal atrial fibrillation
CPT/HCPCS: 93284; 99214

== ENCOUNTER → 2022-11-08 13:42 | Outpatient (BNVA) | payer OTHER, SELFPAY | PROVIDERS: PCP Internal Medicine; Visit Provider Internal Medicine Cardiovascular Disease | DX: I42.9 Cardiomyopathy, unspecified (principal); I48.0 Paroxysmal atrial fibrillation; Z95.810 Presence of automatic (implantable) cardiac defibrillator | CPT/HCPCS: 93005 ==

== ENCOUNTER → 2022-12-19 23:59 | Outpatient (BNV) | payer OTHER, SELFPAY ==
--- NOTE | 2022-12-19 12:29 | MHC.OFFVIS ---
Intake Intake Visit Reasons: Remote HF Monitoring- [facility] Allergies No Known Allergies Allergy (Verified 10/27/22 14:11) PFSH Medical History Left bundle branch block Cardiomyopathy Annual physical exam Paroxysmal atrial fibrillation Obesity (BMI 30-39.9) Congestive heart failure Cancer of oropharynx Anxiety Erectile dysfunction Vitamin D deficiency Atrial fibrillation Fatty liver Hypercholesterolemia Hypertension Surgical History History of implantable cardioverter-defibrillator (ICD) insertion History of tonsillectomy Hx of cholecystectomy History of bilateral knee arthroplasty History of cardioversion Hx of knee surgery Family History Father Lung cancer Mother Diabetes Brother Substance abuse Social History Housing: House Alcohol intake: current Alcohol intake frequency: holidays/special occasions only Patient Tobacco Use Status: Never used Tobacco e-Cigarette/Vaping Use: Never Used Second Hand Smoke Exposure: No service: Yes Current occupational status: employed Cognitive needs: No Hearing needs: No Vision needs: Yes Office Procedures Cardiac Device Check Cardiac Device Check Details: Remote heart failure report generated 12/19/2022. Heart failure parameters are stable 30309-[id number] Cardiac Device Interrogation, cardio physiologic monitor Procedure code (CPT) selection complete Coding Level of Care Code Procedure Only CPT Codes Cardiac Device Check - Cardiac Device 15: 20474-[id number] Cardiac Device Interrogation, cardio physiologic monitor ([id number])
== END ==
PROVIDERS: PCP Internal Medicine; Visit Provider Internal Medicine Cardiovascular Disease
DX: I50.9 Heart failure, unspecified (principal); Z95.0 Presence of cardiac pacemaker
CPT/HCPCS: 93297

== ENCOUNTER → 2023-01-10 23:59 | Outpatient (BNV) | payer OTHER, SELFPAY ==
--- NOTE | 2023-01-10 18:21 | MHC.OFFVIS ---
Intake Intake Visit Reasons: Remote ICD Check- [facility] Allergies No Known Allergies Allergy (Verified 10/27/22 14:11) PFSH Medical History Left bundle branch block Cardiomyopathy Annual physical exam Paroxysmal atrial fibrillation Obesity (BMI 30-39.9) Congestive heart failure Cancer of oropharynx Anxiety Erectile dysfunction Vitamin D deficiency Atrial fibrillation Fatty liver Hypercholesterolemia Hypertension Surgical History History of implantable cardioverter-defibrillator (ICD) insertion History of tonsillectomy Hx of cholecystectomy History of bilateral knee arthroplasty History of cardioversion Hx of knee surgery Family History Father Lung cancer Mother Diabetes Brother Substance abuse Social History Housing: House Alcohol intake: current Alcohol intake frequency: holidays/special occasions only Patient Tobacco Use Status: Never used Tobacco e-Cigarette/Vaping Use: Never Used Second Hand Smoke Exposure: No service: Yes Current occupational status: employed Cognitive needs: No Hearing needs: No Vision needs: Yes Office Procedures Cardiac Device Check Cardiac Device Check Details: Remote ICD report generated 01/09/2023. ICD function is adequate. Biventricular pacing 97% of the time [id number] Cardiac Interrogation, implant defibrillator w/interim Procedure code (CPT) selection complete Coding Level of Care Code Procedure Only CPT Codes Cardiac Device Check - Cardiac Device 13: 55870-[id number] Cardiac Interrogation, implant defibrillator w/interim ([id number])
== END ==
PROVIDERS: PCP Internal Medicine; Visit Provider Internal Medicine Cardiovascular Disease
DX: I42.9 Cardiomyopathy, unspecified (principal); Z95.810 Presence of automatic (implantable) cardiac defibrillator
CPT/HCPCS: 93295

== ENCOUNTER 2023-01-31 13:00 | Emergency (ER) | payer OTHER, SELFPAY ==
--- NOTE | ~2023-01-31 | XR_ITS ---
EXAMINATION: XR CHEST CLINICAL INFORMATION: Chest pain. COMPARISON: 11/11/2013. TECHNIQUE: 2 views of the chest were obtained. FINDINGS: The cardiomediastinal silhouette is stable. Pacer leads are in place. There appears to be minimal scarring at the left lung base. The lungs are otherwise clear. The bony structures and soft tissues are unremarkable. XR/XR chest 2V IMPRESSION: There appears to be minimal scarring at the left lung base. No other significant abnormality seen.
--- NOTE | 2023-01-31 13:02 | ECG_ITS ---
Test Reason : CP Blood Pressure : / mmHG Vent. Rate : 092 BPM Atrial Rate : 092 BPM P-R Int : 140 ms QRS Dur : 154 ms QT Int : 420 ms P-R-T Axes : 026 222 040 degrees QTc Int : 519 ms Atrial-sensed ventricular-paced rhythm with Premature ventricular complexes Abnormal ECG When compared with ECG of 21-JAN-2022 13:49, Vent. rate has increased BY 29 BPM Referred By: Generic ED Physician Electronically Signed By:HALEY FARNSWORTH MD
[2023-01-31 13:19] VITALS: BP 153/80; PULSE 90; RESP 16; TEMP 36.8; O2SAT 94; BMI 40.5
[2023-01-31 13:19] LABS: MANUAL DIFF FLAG NO
--- NOTE | 2023-01-31 13:19 | ED.GENADULT ---
HPI - General Adult General Chief complaint: Chest Pain Stated complaint: chest pain Time Seen by Provider: 01/31/23 17:45 Source: patient Mode of arrival: ambulatory Limitations: no limitations History of Present Illness HPI narrative: Patient is a 67-year-old male presents emergency department for evaluation of chest pain, described as lower substernal region/epigastric region. Reports onset yesterday evening described as mild. He does state that he was doing heavy lifting while working yesterday. Today upon awakening he still noticed the pain he continue to work with heavy lifting and felt the pain progressively worsened. He took ibuprofen earlier today which did have improvement in his pain. However after approximately 6 hours the pain returned and was much worse. Pain was reproducible to certain movements, heavy lifting, and deep breathing. Denies fevers, chills, dizziness, lightheadedness, shortness of breath, cough, URI symptoms, nausea, vomiting, abdominal pain, numbness or tingling of the extremities, lower extremity redness pain or swelling, personal history of DVT/PE/malignancy. He does report a history of a hiatal hernia, although he does state it has not been problematic for him for the past 10 years, as he has been avoiding any type of heavy lifting which typically exacerbated in the past. He does state that when thinking about it now, the pain he has been experiencing does feel almost identical to the pain associated with his hiatal hernia in the past. Related Data Home Medications Medication Instructions Recorded Confirmed coenzyme Q10 200 mg capsule (Co 400 mg PO DAILY 10/12/21 11/08/22 Q-10) Previous Rx's Medication Instructions Recorded CPAP Supplies #1 ea 05/05/20 CPAP Resmed Full face MASK Large #1 ea 09/03/20 Pressure 10 cm humudified air tadalafil 10 mg tablet (Cialis) 10 mg PO DAILY PRN sexual activity 09/03/20 30 days #14 tabs cyanocobalamin (vitamin B-12) 1,000 mcg PO DAILY #30 caps 07/01/21 1,000 mcg capsule apixaban 5 mg tablet (Eliquis) 5 mg PO BID #180 tabs 02/08/22 metoprolol succinate 25 mg 25 mg PO DAILY 90 days #90 tabs 05/10/22 tablet,extended release 24 hr atorvastatin 10 mg tablet 10 mg PO DAILY #90 tabs 07/25/22 amlodipine 5 mg tablet 5 mg PO DAILY #90 tabs 10/14/22 losartan 100 mg tablet 100 mg PO DAILY #90 tabs 10/27/22 pilocarpine HCl 5 mg tablet 5 mg PO BID 90 days #180 tabs 10/27/22 levothyroxine 125 mcg tablet 125 mcg PO DAILY 30 days #30 tabs 11/14/22 dronedarone 400 mg tablet (Multaq) 400 mg PO BID #60 tabs 11/15/22 Allergies Allergy/AdvReac Type Severity Reaction Status Date / Time No Known Allergies Allergy Verified 10/27/22 14:11 Review of Systems Review of Systems: Yes all other systems are reviewed and are negative [facility] Past Medical History Attestation statement: The following information was validated with the patient. Source: old records reviewed Medical History Left bundle branch block Cardiomyopathy Annual physical exam Paroxysmal atrial fibrillation Obesity (BMI 30-39.9) Congestive heart failure Cancer of oropharynx Anxiety Erectile dysfunction Vitamin D deficiency Atrial fibrillation Fatty liver Hypercholesterolemia Hypertension Surgical History History of implantable cardioverter-defibrillator (ICD) insertion History of tonsillectomy Hx of cholecystectomy History of bilateral knee arthroplasty History of cardioversion Hx of knee surgery Family History Family History Father Lung cancer Mother Diabetes Brother Substance abuse Social History Social History Housing: House Alcohol intake: current Alcohol intake frequency: holidays/special occasions only Patient Tobacco Use Status: Never used Tobacco e-Cigarette/Vaping Use: Never Used Second Hand Smoke Exposure: No Advance Directives: No service: Yes Current occupational status: employed Cognitive needs: No Hearing needs: No Vision needs: Yes Physical Exam ED Vital Signs: Vital Signs - 24 hr 01/31/23 13:19 Temperature 98.3 F Pulse Rate 90 Respiratory Rate 16 Blood Pressure 153/80 H Pulse Oximetry 94 Oxygen Delivery Method Room Air BMI result Body Mass Index 40.5 Appearance: Alert.?Oriented to person, place and time. No acute distress.?Normal affect. Eyes: Pupils equal, round and reactive to light.? ENT: Pharynx normal.?? Neck: Normal inspection.? Neck supple.?? CVS: Heart sounds normal. Normal heart rate and rhythm.? Pulses normal.?? Respiratory: No respiratory distress.? Lung sounds clear to auscultation bilaterally?? Abdomen: Soft and non-tender. Normoactive bowel sounds. No pulsatile mass.?? Skin: Skin warm and dry.? Normal skin color.? Extremities: No lower extremity edema.? No calf ttp? Neuro: Moves all extremities spontaneously. Sensation intact bilaterally. CN II-XII intact. No focal neuro deficits. Ambulates with normal steady gait. Course Course Course Narrative: RME- 67 year old male presents for evaluation of chest pain. He has a history of diabetes, hypertension, hyperlipidemia, cardiomyopathy. EKG completed, plan for labs, chest x-ray. CHest pain does not radiate and started today Medical Decision Making Medical Decision Making MDM Narrative: Patient is a 67-year-old male with past medical history of diabetes, hypertension, hyperlipidemia, cardiomyopathy, atrial fibrillation on Eliquis, cardiac pacemaker, CHF, SHAR presenting to emergency room for evaluation of chest pain as per HPI. Overall his physical examination is benign, at this time he is asymptomatic, he took ibuprofen approximately 1 hour prior to my examination which he reports resolved his pain as it did earlier today. I reviewed labs EKG and chest x-ray obtained prior to my assumption of care; CBC is without leukocytosis, very mild normocytic anemia not needing transfusion criteria. CMP is overall unremarkable. High sensitive troponin is below detectable limits x2. EKG revealing paced rhythm with PVCs, ventricular rate of 92, QTC 519, no ST elevation, no ST depression. CXR is without acute cardiopulmonary process. I reviewed all these findings with patient, at this time low suspicion for PE; Wells score negative. Not consistent with ACS. No evidence of pneumonia. Suspect symptoms are most likely secondary to muscular strain and/or hiatal hernia, patient advised use of acetaminophen, and advised against the use of ibuprofen as he is currently taking Eliquis, refraining from heavy lifting, outpatient follow-up with his primary care provider. We discussed worrisome signs and symptoms that would warrant re-evaluation emergency department. All questions answered. Stable for discharge. Differential Diagnosis Differential Diagnoses: The differential diagnosis associated with the presentation includes (As noted above) Admission/Observation Consideration of admission/observation: Escalation of care including admission/observation considered (See narrative above) Lab Data MDM Lab Attestation statement: I reviewed the patient's lab results. (See narrative above) 01/31/23 13:15 01/31/23 13:15 Labs: Lab Results 01/31/23 01/31/23 01/31/23 Range/Units 13:15 14:28 17:39 WBC 7.3 (4.8-10.8) X10*3/uL RBC 4.07 L (4.60-5.80) X10*6/uL Hgb 13.1 L (14.0-18.0) g/dl Hct 37.6 L (42.0-52.0) % MCV 92.4 (80.0-98.0) fL MCH 32.2 (27.0-33.0) pg MCHC 34.8 (31.0-36.0) g/dl RDW 12.2 (11.0-16.0) % Plt Count 130 L (160-400) X10*3/uL MPV 8.8 L (9.4-12.4) fL Immature Gran % (Auto) 0.1 (0.0-0.4) % Neut % (Auto) 71.5 (45-73) % Lymph % (Auto) 17.9 L (20-40) % [place] % (Auto) 10.0 (2-11) % Eos % (Auto) 0.4 (0-4) % Baso % (Auto) 0.1 (0-2) % Lymph # (Auto) 1.3 (1.2-4.9) X10*3/uL [place] # (Auto) 0.7 (0.1-1.2) X10*3/uL Eos # (Auto) 0.0 (0.0-0.4) X10*3/uL Baso # (Auto) 0.0 (0.0-0.2) X10*3/uL Abs Immat Gran (auto) 0.01 (0.00-0.03) X10*3/uL Absolute Neuts (auto) 5.2 (2.0-8.3) x10*3/uL Absolute Nucleated RBC 0.000 (0.0-0.012) X10*3/uL Nucleated RBC % (auto) 0.0 (0.0-0.2) /100WBC PT 12.4 (11.1-13.3) SEC INR 1.0 (0.9-1.1) APTT 31.9 (26.0-36.4) SEC Sodium 140 (135-145) mmol/L Potassium 4.0 (3.3-5.1) mmol/L Chloride 106 (96-108) mmol/L Carbon Dioxide 24 (22-29) mmol/L Anion Gap 14 (12-20) BUN 17 H (9-16) mg/dL Creatinine 0.84 (0.5-1.4) mg/dL Estim Creat Clear Calc 128.4 Estimated GFR > 60 Random Glucose 139 H (60-115) mg/dL Calcium 9.5 D (8.4-10.2) mg/dL Total Bilirubin 0.7 (0.0-1.0) mg/dL Direct Bilirubin 0.3 (0.0-0.5) mg/dL AST 22 (5-37) U/L ALT 29 (0-40) U/L Alkaline Phosphatase 74 (39-117) U/L Troponin I High Sens < 2.7 < 2.7 (<3.5-35.0) ng/L Total Protein 6.9 (6.5-8.0) g/dL Albumin 4.1 (3.5-5.0) g/dL Lipase 19 (8-78) U/L Independent Interpretation I performed an independent interpretation of an: EKG (See narrative above) and Plain X-Ray (I personally interpreted chest x-ray and agree with radiologist impression.) Radiology Impression Discussion of test interpretation with radiology: I have reviewed the radiologist's reading. Radiologist Impression: XR/XR chest 2V IMPRESSION: There appears to be minimal scarring at the left lung base. No other significant abnormality seen. Independent Historian Clinical information obtained from an independent historian. History obtained from or confirmed by: Spouse External Record Review External record reviewed: Outpatient record Prescription Management I considered prescription management with: Pain Medication (Acetaminophen) Discharge Plan Discharge Clinical Impression: Chest pain Instructions: Noncardiac Chest Pain (ED), Chest Wall Pain (ED) Additional Instructions: As discussed, it is likely that the pain you have been experiencing is due to a strain of the musculature within your chest wall and/or your hiatal hernia. Your blood work today is very reassuring, your EKG does not show any evidence of a heart attack, and your chest x-ray does not show evidence of pneumonia. This is all very reassuring. You should refrain from taking ibuprofen as your currently prescribed Eliquis and it is not recommended to take the 2 medications together. You should refrain from any heavy lifting as this may worsen your symptoms. You can take Tylenol 500 mg, 2 tablets (1,000mg) every 4-6 hours as needed for pain, but not to exceed 3 doses daily (3,000mg).? You may return back to emergency department any new or worsening symptoms or concerns. 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 Prescriptions: No Action metoprolol succinate 25 mg tablet extended release 24 hr 25 mg PO DAILY 90 Days Qty: 90 3RF atorvastatin 10 mg tablet 10 mg PO DAILY Qty: 90 3RF amlodipine 5 mg tablet 5 mg PO DAILY Qty: 90 1RF levothyroxine 125 mcg tablet 125 mcg PO DAILY 30 Days Qty: 30 3RF Multaq 400 mg tablet 400 mg PO BID Qty: 60 6RF (DME) CPAP Supplies See Rx Instructions .Route .MEDSUPPLY Qty: 1 0RF Rx Instructions: As directed coenzyme Q10 [Co Q-10] 200 mg capsule 400 mg PO DAILY (DME) CPAP Resmed Full face MASK Large Pressure 10 cm humudified air See Rx Instructions .Route .MEDSUPPLY Qty: 1 0RF Rx Instructions: As directed tadalafil [Cialis] 10 mg tablet 10 mg PO DAILY PRN (Reason: sexual activity) 30 Days Qty: 14 4RF Rx Instructions: administer approximately 30min before sexual activity; do not use more than 1 dose per 24hrs cyanocobalamin (vitamin B-12) 1,000 mcg capsule 1,000 mcg PO DAILY Qty: 30 3RF pilocarpine HCl 5 mg tablet 5 mg PO BID 90 Days Qty: 180 3RF losartan 100 mg tablet 100 mg PO DAILY Qty: 90 3RF Eliquis 5 mg tablet 5 mg PO BID Qty: 180 3RF Referrals: Po,Mario Rob MD [Primary Care Provider] -
[2023-01-31 13:21] LABS: Basophils Percent Auto 0.1 % (0-2); Eosinophils Percent Auto 0.4 % (0-4); Hematocrit 37.6 % (42.0-52.0); Hemoglobin 13.1 g/dl (14.0-18.0); Imm Gran Abs Auto 0.01 X10*3/uL (0.00-0.03); Imm Gran Pct Auto 0.1 % (0.0-0.4); Lymphocytes Absolute Auto 1.3 X10*3/uL (1.2-4.9); Lymphocytes Percent Auto 17.9 % (20-40); Mean Corpuscular HGB Conc 34.8 g/dl (31.0-36.0); Mean Corpuscular Hemoglobin 32.2 pg (27.0-33.0); Mean Corpuscular Volume 92.4 fL (80.0-98.0); Mean Platelet Volume 8.8 fL (9.4-12.4); Monocytes Absolute Auto 0.7 X10*3/uL (0.1-1.2); Neutrophils Absolute Auto 5.2 x10*3/uL (2.0-8.3); Neutrophils Percent Auto 71.5 % (45-73); Platelet Count 130 X10*3/uL (160-400); Red Blood Count 4.07 X10*6/uL (4.60-5.80); Red Cell Distribution Width 12.2 % (11.0-16.0); White Blood Count 7.3 X10*3/uL (4.8-10.8)
[2023-01-31 13:37] LABS: Anion Gap 14 (12-20); Blood Urea Nitrogen 17 mg/dL (9-16); Calcium 9.5 mg/dL (8.4-10.2); Carbon Dioxide 24 mmol/L (22-29); Chloride 106 mmol/L (96-108); Creatinine Clr Calc Pharmacy 128.4; Estimated Glomerular Filt Rate > 60; Glucose Random 139 mg/dL (60-115); Sodium 140 mmol/L (135-145)
[2023-01-31 13:47] LABS: Troponin-I High Sensitivity < 2.7 ng/L (<3.5-35.0)
[2023-01-31 14:21] LABS: Alanine Aminotransferase 29 U/L (0-40); Albumin Level 4.1 g/dL (3.5-5.0); Alkaline Phosphatase 74 U/L (39-117); Aspartate Amino Transferase 22 U/L (5-37); Bilirubin Direct 0.3 mg/dL (0.0-0.5); Bilirubin Total 0.7 mg/dL (0.0-1.0); Lipase 19 U/L (8-78); Total Protein 6.9 g/dL (6.5-8.0)
[2023-01-31 14:40] LABS: Prothrombin Time 12.4 SEC (11.1-13.3)
[2023-01-31 14:43] LABS: Partial Thromboplastin Time 31.9 SEC (26.0-36.4)
[2023-01-31 18:07] LABS: Troponin-I High Sensitivity < 2.7 ng/L (<3.5-35.0)
== END 2023-01-31 18:30 | disposition home or self-care (01) ==
PROVIDERS: Physician Assistant; Emergency Provider Internal Medicine; PCP Internal Medicine
DX: R07.9 Chest pain, unspecified (principal); E11.9 Type 2 diabetes mellitus without complications; I11.0 Hypertensive heart disease with heart failure; I50.9 Heart failure, unspecified; E78.00 Pure hypercholesterolemia, unspecified; I48.0 Paroxysmal atrial fibrillation; Z79.02 Long term (current) use of antithrombotics/antiplatelets; Z79.899 Other long term (current) drug therapy; Z79.01 Long term (current) use of anticoagulants
CPT/HCPCS: 36415; 71046; 80048; 80076; 83690; 84484; 85025; 85610; 85730; 93005; 99283

== ENCOUNTER → 2023-01-31 13:02 | Outpatient (BNV) | payer OTHER, SELFPAY | PROVIDERS: PCP Internal Medicine; Visit Provider Internal Medicine Cardiovascular Disease | DX: R07.9 Chest pain, unspecified (principal) | CPT/HCPCS: 93010 ==

== ENCOUNTER → 2023-02-09 23:59 | Outpatient (BNV) | payer OTHER, SELFPAY ==
--- NOTE | 2023-02-14 08:22 | MHC.OFFVIS ---
Intake Intake Visit Reasons: Remote HF Monitoring- [facility] Allergies No Known Allergies Allergy (Verified 10/27/22 14:11) PFS Medical History Left bundle branch block Cardiomyopathy Annual physical exam Paroxysmal atrial fibrillation Obesity (BMI 30-39.9) Congestive heart failure Cancer of oropharynx Anxiety Erectile dysfunction Vitamin D deficiency Atrial fibrillation Fatty liver Hypercholesterolemia Hypertension Surgical History History of implantable cardioverter-defibrillator (ICD) insertion History of tonsillectomy Hx of cholecystectomy History of bilateral knee arthroplasty History of cardioversion Hx of knee surgery Family History Father Lung cancer Mother Diabetes Brother Substance abuse Social History Housing: House Alcohol intake: current Alcohol intake frequency: holidays/special occasions only Patient Tobacco Use Status: Never used Tobacco e-Cigarette/Vaping Use: Never Used Second Hand Smoke Exposure: No service: Yes Current occupational status: employed Cognitive needs: No Hearing needs: No Vision needs: Yes Office Procedures Cardiac Device Check Cardiac Device Check Details: Remote heart failure report generated 02/01/2023. Heart failure parameters are stable [id number] Cardiac Device Interrogation, cardio physiologic monitor Procedure code (CPT) selection complete Assessment & Plan Assessment & Plan (1) Biventricular ICD (implantable cardioverter-defibrillator) in place: Code(s): Z95.810 - Presence of automatic (implantable) cardiac defibrillator Plan: See above Coding Level of Care Code Procedure Only Diagnoses Biventricular ICD (implantable cardioverter-defibrillator) in place Z95.810 CPT Codes Cardiac Device Check - Cardiac Device 15: [id number] Cardiac Device Interrogation, cardio physiologic monitor ([id number])
== END ==
PROVIDERS: PCP Internal Medicine; Visit Provider Internal Medicine Cardiovascular Disease
DX: I50.9 Heart failure, unspecified (principal); Z95.810 Presence of automatic (implantable) cardiac defibrillator
CPT/HCPCS: 93297

== ENCOUNTER → 2023-03-24 23:59 | Outpatient (BNV) | payer OTHER, SELFPAY ==
--- NOTE | 2023-03-27 12:39 | MHC.OFFVIS ---
Intake Intake Visit Reasons: Remote HF Monitoring- [facility] Allergies No Known Allergies Allergy (Verified 10/27/22 14:11) PFS Medical History Left bundle branch block Cardiomyopathy Annual physical exam Paroxysmal atrial fibrillation Obesity (BMI 30-39.9) Congestive heart failure Cancer of oropharynx Anxiety Erectile dysfunction Vitamin D deficiency Atrial fibrillation Fatty liver Hypercholesterolemia Hypertension Surgical History History of implantable cardioverter-defibrillator (ICD) insertion History of tonsillectomy Hx of cholecystectomy History of bilateral knee arthroplasty History of cardioversion Hx of knee surgery Family History Father Lung cancer Mother Diabetes Brother Substance abuse Social History Housing: House Alcohol intake: current Alcohol intake frequency: holidays/special occasions only Patient Tobacco Use Status: Never used Tobacco e-Cigarette/Vaping Use: Never Used Second Hand Smoke Exposure: No service: Yes Current occupational status: employed Cognitive needs: No Hearing needs: No Vision needs: Yes Office Procedures Cardiac Device Check Cardiac Device Check Details: Remote heart failure report generated 03/24/2023. Heart failure parameters are stable. [id number] Cardiac Device Interrogation, cardio physiologic monitor Procedure code (CPT) selection complete Assessment & Plan Assessment & Plan (1) Biventricular ICD (implantable cardioverter-defibrillator) in place: Code(s): Z95.810 - Presence of automatic (implantable) cardiac defibrillator Plan: See above Coding Level of Care Code Procedure Only Diagnoses Biventricular ICD (implantable cardioverter-defibrillator) in place Z95.810 CPT Codes Cardiac Device Check - Cardiac Device 15: [id number] Cardiac Device Interrogation, cardio physiologic monitor ([id number])
== END ==
PROVIDERS: PCP Internal Medicine; Visit Provider Internal Medicine Cardiovascular Disease
DX: I50.9 Heart failure, unspecified (principal); Z95.810 Presence of automatic (implantable) cardiac defibrillator
CPT/HCPCS: 93297

== ENCOUNTER → 2023-04-20 12:34 | Outpatient (REF) | payer OTHER, SELFPAY ==
--- NOTE | 2023-04-20 12:54 | CA_ITS ---
Transthoracic Echocardiogram Patient (Last, First, Middle): Kem Garibay M Gender: Male Date of : 1955 Age: 67 Procedure Date: 04/20/2023 Procedure Type: Transthoracic Echocardiogram Location: OP Height: 185.42 cm Weight: 136.99 kg BSA: 2.56 m2 Heart Rate: bpm BP: 130 / 80 mmHg Crisis Specialist: TO Referring MD: Roel Benjamin MD Physician Relations Specialist: Roel Benjamin MD Symptoms: I42.9 - Cardiomyopathy, unspecified Study Quality: Technically Difficult/contrast ECG Rhythm: Ventriculary paced rhythm Conclusions: - 1. Mildly dilated left ventricle with low normal LV ejection fraction 50-55% with grade 1 diastolic dysfunction 2. Normal cardiac valve with the Dopplers 3. Mildly dilated ascending aorta 3.9 cm 4. No gross pericardial effusion Findings Procedure Information Contrast agent, definity, is being given per protocol without apparent complications. Left Ventricle Mildly increased left ventricular cavity size. There is mildly increased left ventricular wall thickness. The left ventricular systolic function is low normal. The visually estimated ejection fraction is between 50-55%. Spectral Doppler is indicative of an impaired relaxation filling pattern. E/E prime ratio is <8, consistent with normal filling pressures. Evidence suggests grade I (mild) diastolic dysfunction. Right Ventricle The right ventricle was not well visualized. Mildly increased right ventricular cavity size. There is normal right ventricular systolic function. There is an ICD wire seen in the right ventricle. Atria The left atrium is normal in size. Interatrial shunt cannot be excluded. The right atrium is normal in size. A pacemaker wire is identified in the right atrium. Aortic Valve The aortic valve structure and function is likely normal. There is no aortic valve stenosis. There is no aortic valve regurgitation. Mitral Valve The mitral valve was not well visualized. There is trace mitral valve regurgitation. There is no mitral valve stenosis. Pulmonic Valve The pulmonic valve was not well visualized. There is trace to mild pulmonic valve regurgitation. Tricuspid Valve Likely normal tricuspid valve structure and function. Tricuspid regurgitation envelope is inadequate for calculation of right ventricular systolic pressure. Normal right atrial pressure. Great Vessels The pulmonary artery was not well visualized. There is mild dilatation of the ascending aorta measuring 3.90 cm. Venous The inferior vena cava is normal in size and collapses greater than 50% with inspiration. Pericardium/Pleural There is no evidence of pericardial effusion. Prior Study Comparison Changes noted compared to prior study dated: 04/14/2022. LV size and ejection fraction have improved compared to December 04 echocardiogram. The left atrial chamber size also appears to be within normal limits Measurements 2D Linear Measurements IVSd: 1.26 0.6-0.9/0.6-1.0 cm LVIDd: 5.67 3.9-5.3/4.2-5.9 cm LVIDd Index: 2.21 2.4-3.2/2.2-3.1 cm/m2 LVIDs: 4.15 2.0-3.6 cm LVPWd: 1.21 0.7-1.1 cm LA Diam: 4.40 2.7-3.8/3.0-4.0 cm LAIDs Index: 1.72 1.5-2.3 cm/m2 LV Mass: 371.35 67-162/88-224 g LV Mass Index: 145.06 43-95/49-115 g/m2 LVOT Diam: 2.30 3.0+(-)1.3 cm 2D Systolic Function EF 4C: 52.00 >55% EF 2C: 48.00 >55% EF BiP: 51.10 >55% Mitral Valve MV Pk E: 0.56 MV PK A: 0.69 MV Decel Time: 164.00 E/A: 0.80 E'Lateral: 10.70 E'Medial: 6.31 E/E' Med: 8.80 E/E' Lat: 5.20 PHT: 48.00 MVA PHT: 4.58 Decel [place]: 3.39 Aortic Valve AoV Pk Benigno: 1.56 AoV Mn Benigno: 1.06 AoV VTI: 0.29 AoV Pk Grad: 10.00 Aov Mn Grad: 5.00 MOLLY Cont.VTI: 2.54 LVOT LVOT Pk Benigno: 0.95 LVOT Mn Benigno: 0.67 LVOT VTI: 0.18 LVOT Pk Grad: 4.00 LVOT Mn Grad: 2.00 LVOT Diam: 2.30 LVOT Area: 4.15 Diastolic Function MV Pk E: 0.56 MV Pk A: 0.69 E/A: 0.80 E'Medial: 6.31 E/E' Med: 8.80 E' Laterial: 10.70 E/E' Lat: 5.20 Right Ventricle TAPSE (mm): 21.40 TVS' Benigno: 9.79 Tricuspid Valve RA Press: 3.00 Great Vessels Aorta Sinus of Valsalva: 3.81 2.0-3.[address] [place]: 3.09 1.7-3.4 cm Ao Asc: 3.90 2.1-3.4 cm Updated in Other Vendor System with Status of Final Roel Benjamin MD electronically signed on 04/21/2023 12:45:03 PM with status of Final
== END ==
LOC: HO.CARD 12:34
PROVIDERS: PCP Internal Medicine; Visit Provider Internal Medicine Cardiovascular Disease
DX: I42.9 Cardiomyopathy, unspecified (principal)
CPT/HCPCS: 93306; Q9957

== ENCOUNTER → 2023-04-20 12:54 | Outpatient (BNV) | payer OTHER, SELFPAY | PROVIDERS: PCP Internal Medicine; Visit Provider Internal Medicine Cardiovascular Disease | DX: I42.9 Cardiomyopathy, unspecified (principal); I37.1 Nonrheumatic pulmonary valve insufficiency | CPT/HCPCS: 93306 ==

== ENCOUNTER 2023-05-09 13:29 | Outpatient (AMB) | payer OTHER, SELFPAY ==
[2023-05-09 13:37] VITALS: BP 120/76; PULSE 77; BMI 40.7
--- NOTE | 2023-05-09 13:37 | MHC.OFFVIS ---
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 Allergies No Known Allergies Allergy (Verified 10/27/22 14:11) Medication List - Last Reconciled 05/09/23 by Roel Benjamin MD amlodipine 5 mg PO DAILY apixaban (Eliquis) 5 mg PO BID atorvastatin 10 mg PO DAILY coenzyme Q10 (Co Q-10) 400 mg PO DAILY [CPAP Resmed Full face MASK Large Pressure 10 cm humudified air As directed] [CPAP Supplies As directed] cyanocobalamin (vitamin B-12) 1,000 mcg PO DAILY dronedarone (Multaq) 400 mg PO BID levothyroxine 125 mcg PO DAILY 30 days losartan 100 mg PO DAILY metoprolol succinate ER 25 mg PO DAILY 90 days pilocarpine HCl 5 mg PO BID 90 days tadalafil (Cialis) 10 mg PO DAILY PRN 30 days HPI HPI Comments History of Present Illness Details Tim comes for follow-up. He has been doing very well from cardiac perspective. Uses CPAP. Recent echocardiogram showed low normal LVEF of 50-55% with mild thoracic aortic aneurysm. No prolonged palpitation irregular heartbeat. No lightheadedness, syncope, ICD discharge. No heart failure symptoms. Takes all his medications regularly. No bleeding issues or neurologic events. [facility] Medical History Left bundle branch block Cardiomyopathy Annual physical exam Paroxysmal atrial fibrillation Obesity (BMI 30-39.9) Congestive heart failure Cancer of oropharynx Anxiety Erectile dysfunction Vitamin D deficiency Atrial fibrillation Fatty liver Hypercholesterolemia Hypertension Surgical History History of implantable cardioverter-defibrillator (ICD) insertion History of tonsillectomy Hx of cholecystectomy History of bilateral knee arthroplasty History of cardioversion Hx of knee surgery Family History Father Lung cancer Mother Diabetes Brother Substance abuse Social History Housing: House Alcohol intake: current Alcohol intake frequency: holidays/special occasions only Patient Tobacco Use Status: Never used Tobacco e-Cigarette/Vaping Use: Never Used Second Hand Smoke Exposure: No service: Yes Current occupational status: employed Cognitive needs: No Hearing needs: No Vision needs: Yes Review of Systems Const Denies chills, Denies fatigue, Denies fever(s), Denies frequent falls, Denies weakness, Denies weight gain and Denies weight loss ENT Denies dizziness Card Denies chest pain, Denies leg edema, Denies lightheadedness, Denies palpitations, Denies dyspnea, Denies dyspnea on exertion, Denies orthopnea and Denies other (loss of consciousness) Resp Denies cough, Denies dyspnea and Denies dyspnea on exertion GI Denies hematochezia and Denies change in stool character Musc Denies abnormal gait, Denies muscle weakness, Denies numbness, Denies radiating pain into limb and Denies tingling Neuro Denies abnormal gait, Denies dizziness, Denies frequent falls, Denies numbness, Denies tingling and Denies weakness Endo Denies fatigue and Denies palpitations Physical Exam Vital Signs: Last Vital Signs Pulse 77 05/09/23 13:37 BP 120/76 05/09/23 13:37 BMI result Body Mass Index 40.7 Const General: cooperative, healthy appearing, comfortable and no acute distress Orientation/consciousness: patient oriented x3 Neck Neck: Yes normal visual inspection and Yes no JVD Carotids: normal carotid upstroke Resp Effort & Inspection: normal respiratory effort Auscultation: clear to auscultation bilaterally, no crackles, no rales, no rhonchi and no wheezes Cardio Jugular venous distension: no JVD Rate: regular rate Rhythm: regular rhythm Heart sounds: S1 normal heart sound present, S2 normal heart sound present, no click, no gallops and no murmurs Peripheral pulses: Peripheral pulses 2+ throughout GI Inspection: Yes normal to inspection Neuro General: patient oriented x3 Extrem General: Yes normal to inspection, No no pedal edema and No calf tenderness Office Procedures Cardiac Device Check Cardiac Device Check Details: Biventricular [facility] ICD in place. Programmed in DDDR at 60 beats per minute. Bi V pacing 97% time. Few episodes of high ventricular rate episode noted consistent with nonsustained VT. Atrial and biventricular pacing thresholds excellent and reprogrammed to enhance battery life. No atrial fibrillation noted. Atrial ventricular sensing is excellent. Pacing and shock lead impedance is stable. Battery life is at about 7 years [id number] Cardiac Device Check, multi lead implantable defibrillator Procedure code (CPT) selection complete EKG Details: EKG shows normal sinus rhythm with Bi V pacing [id number], Complete Assessment & Plan Assessment & Plan (1) Cardiomyopathy: Comment: ICD December 2021 Code(s): I42.9 - Cardiomyopathy, unspecified Plan: Nonischemic cardiomyopathy process suspected to be related to left bundle-branch block with improved LV ejection fraction with neurohormonal modulation as well as cardiac resynchronization therapy. Continue current neurohormonal modulation. No signs or symptoms of heart failure. Importance of neurohormonal modulation was discussed. Continue rhythm control approach. See below. Continue CPAP therapy. Continue participate in regular physical activity. Signs and symptoms of heart failure were discussed. (2) Paroxysmal atrial fibrillation: Code(s): I48.0 - Paroxysmal atrial fibrillation Plan: Paroxysmal atrial fibrillation which has remained suppressed with medical therapy including antiarrhythmic drug therapy with Multaq. Continue the same. Has derived significant clinical benefit from the same. Importance of rhythm control approach was discussed. Continue Multaq therapy. Continue full oral anticoagulation, currently on Eliquis which has done well for him. Semi annual renal function test should be pursued. (3) Biventricular ICD (implantable cardioverter-defibrillator) in place: Code(s): Z95.810 - Presence of automatic (implantable) cardiac defibrillator Plan: Biventricular ICD in place, working well. Reprogrammed for adequate functioning. Will follow-up remotely as well as every 6 months in the clinic. Will follow up with the patient in 6 months time, sooner p.r.n.. Thank you for allowing me to partake in his care Orders: Orders Basic Metabolic Panel Today I48.0 - Paroxysmal atrial fibrillation Complete Blood Count no Diff Today I48.0 - Paroxysmal atrial fibrillation Medications: Refilled metoprolol succinate ER 25 mg PO DAILY 90 days 90 tabs 3RF dronedarone (Multaq) 400 mg PO BID 180 tabs 3RF Coding Level of Care Code Est Pt Level 4 (89363) Diagnoses Cardiomyopathy I42.9 Paroxysmal atrial fibrillation I48.0 Biventricular ICD (implantable cardioverter-defibrillator) in place Z95.810 CPT Codes Cardiac Device Check - Cardiac Device 6: 05530-CG Cardiac Device Check, multi lead implantable defibrillator ([id number]) EKG - CPT: 12171-Uraikvaxaxwboybuo, Complete ([id number])
== END 2023-05-09 14:04 | disposition home or self-care (01) ==
PROVIDERS: PCP Internal Medicine; Visit Provider Internal Medicine Cardiovascular Disease
DX: I42.9 Cardiomyopathy, unspecified (principal); I48.0 Paroxysmal atrial fibrillation; Z95.810 Presence of automatic (implantable) cardiac defibrillator
CPT/HCPCS: 93010; 93284; 99214

== ENCOUNTER → 2023-05-09 13:29 | Outpatient (BNVA) | payer OTHER, SELFPAY | PROVIDERS: PCP Internal Medicine; Visit Provider Internal Medicine Cardiovascular Disease | DX: I42.9 Cardiomyopathy, unspecified (principal); I48.0 Paroxysmal atrial fibrillation; Z79.01 Long term (current) use of anticoagulants; Z45.02 Encounter for adjustment and management of automatic implantable cardiac defibrillator | CPT/HCPCS: 93005 ==

== ENCOUNTER → 2023-07-11 23:59 | Outpatient (BNV) | payer OTHER, SELFPAY ==
--- NOTE | 2023-08-10 08:46 | MHC.OFFVIS ---
Intake Visit Reasons: Remote ICD check- [facility] Allergies No Known Allergies Allergy (Verified 10/27/22 14:11) [facility] Medical History Left bundle branch block Cardiomyopathy Annual physical exam Paroxysmal atrial fibrillation Obesity (BMI 30-39.9) Congestive heart failure Cancer of oropharynx Anxiety Erectile dysfunction Vitamin D deficiency Atrial fibrillation Fatty liver Hypercholesterolemia Hypertension Surgical History History of implantable cardioverter-defibrillator (ICD) insertion History of tonsillectomy Hx of cholecystectomy History of bilateral knee arthroplasty History of cardioversion Hx of knee surgery Family History Father Lung cancer Mother Diabetes Brother Substance abuse Social History Housing: House Alcohol intake: current Alcohol intake frequency: holidays/special occasions only Patient Tobacco Use Status: Never used Tobacco e-Cigarette/Vaping Use: Never Used Second Hand Smoke Exposure: No service: Yes Current occupational status: employed Cognitive needs: No Hearing needs: No Vision needs: Yes Office Procedures Cardiac Device Check Cardiac Device Check Details: Remote ICD report generated 07/11/2023. ICD function is adequate. Bi V pacing 97% of the time [id number] Cardiac Interrogation, implant defibrillator w/interim Procedure code (CPT) selection complete Assessment & Plan Assessment & Plan (1) Biventricular ICD (implantable cardioverter-defibrillator) in place: Code(s): Z95.810 - Presence of automatic (implantable) cardiac defibrillator Category: Medical Plan: See above Coding Level of Care Code Procedure Only Diagnoses Biventricular ICD (implantable cardioverter-defibrillator) in place Z95.810 CPT Codes Cardiac Device Check - Cardiac Device 13: [id number] Cardiac Interrogation, implant defibrillator w/interim ([id number])
== END ==
PROVIDERS: PCP Internal Medicine; Visit Provider Internal Medicine Cardiovascular Disease
DX: Z45.02 Encounter for adjustment and management of automatic implantable cardiac defibrillator (principal)
CPT/HCPCS: 93295

== ENCOUNTER 2023-09-29 06:01 | Outpatient (REF) | payer OTHER, SELFPAY ==
[2023-09-29 06:09] LABS: MANUAL DIFF FLAG NO
[2023-09-29 07:16] LABS: Basophils Percent Auto 0.2 % (0-2); Eosinophils Absolute Auto 0.1 X10*3/uL (0.0-0.4); Eosinophils Percent Auto 2.3 % (0-4); Imm Gran Abs Auto 0.01 X10*3/uL (0.00-0.03); Imm Gran Pct Auto 0.2 % (0.0-0.4); Lymphocytes Absolute Auto 1.4 X10*3/uL (1.2-4.9); Lymphocytes Percent Auto 31.7 % (20-40); Mean Corpuscular HGB Conc 34.1 g/dl (31.0-36.0); Mean Corpuscular Hemoglobin 32.2 pg (27.0-33.0); Mean Corpuscular Volume 94.3 fL (80.0-98.0); Mean Platelet Volume 9.1 fL (9.4-12.4); Monocytes Absolute Auto 0.5 X10*3/uL (0.1-1.2); Monocytes Percent Auto 11.1 % (2-11); Neutrophils Absolute Auto 2.4 x10*3/uL (2.0-8.3); Neutrophils Percent Auto 54.5 % (45-73); Platelet Count 126 X10*3/uL (160-400); Red Blood Count 4.35 X10*6/uL (4.60-5.80); Red Cell Distribution Width 12.2 % (11.0-16.0); White Blood Count 4.3 X10*3/uL (4.8-10.8)
[2023-09-29 07:32] LABS: Estimated Average Glucose 111 mg/dL; Hemoglobin A1c % 5.5 % (<6.0)
[2023-09-29 07:43] LABS: B Type Natriuretic Peptide 14 pg/mL (<100)
[2023-09-29 07:51] LABS: Alanine Aminotransferase 46 U/L (0-40); Albumin Level 4.3 g/dL (3.5-5.0); Alkaline Phosphatase 62 U/L (39-117); Anion Gap 12 (12-20); Aspartate Amino Transferase 35 U/L (5-37); Blood Urea Nitrogen 10 mg/dL (9-16); Calcium 9.3 mg/dL (8.4-10.2); Carbon Dioxide 26 mmol/L (22-29); Chloride 108 mmol/L (96-108); Cholesterol 133 mg/dL (<200); Estimated Glomerular Filt Rate > 60; Glucose Random 111 mg/dL (60-115); HDL Cholesterol 48 mg/dL (>40); LDL Cholesterol Calculated 59 mg/dL (<100); Magnesium 1.9 mg/dL (1.6-2.6); Potassium 4.4 mmol/L (3.3-5.1); Sodium 142 mmol/L (135-145); Total Protein 6.8 g/dL (6.5-8.0); Triglycerides 133 mg/dL (<150)
[2023-09-29 08:05] LABS: Free T4 (Free Thyroxine) 1.07 ng/dL (0.71-1.85); Thyroid Stimulating Hormone 3.65 uIU/mL (0.32-4.0)
[2023-09-29 08:16] LABS: Folate 14.4 ng/mL (> or = 4.0); Prostate Specific Antigen Scr 0.87 ng/mL (<0.05-4.0); Vitamin B12 520 pg/mL (200-900)
[2023-09-29 09:23] LABS: Creatinine Urine 126.17 mg/dL
== END 2023-09-29 06:02 | disposition home or self-care (01) ==
LOC: HO.LAB 06:01
PROVIDERS: PCP Internal Medicine; Referring Provider Internal Medicine Cardiovascular Disease; Visit Provider Internal Medicine
DX: E03.9 Hypothyroidism, unspecified (principal); E11.65 Type 2 diabetes mellitus with hyperglycemia; E78.00 Pure hypercholesterolemia, unspecified; Z12.5 Encounter for screening for malignant neoplasm of prostate
CPT/HCPCS: 36415; 80053; 80061; 82043; 82570; 82607; 82746; 83036; 83735; 83880; 84153; 84439; 84443; 85025

== ENCOUNTER 2023-10-10 06:06 | Outpatient (REF) | payer OTHER, SELFPAY ==
[2023-10-10 06:23] LABS: MANUAL DIFF FLAG NO
[2023-10-10 07:14] LABS: Basophils Percent Auto 0.2 % (0-2); Eosinophils Absolute Auto 0.1 X10*3/uL (0.0-0.4); Eosinophils Percent Auto 1.4 % (0-4); Hematocrit 39.6 % (42.0-52.0); Hemoglobin 13.7 g/dl (14.0-18.0); Imm Gran Abs Auto 0.02 X10*3/uL (0.00-0.03); Imm Gran Pct Auto 0.5 % (0.0-0.4); Lymphocytes Absolute Auto 1.3 X10*3/uL (1.2-4.9); Lymphocytes Percent Auto 31.3 % (20-40); Mean Corpuscular HGB Conc 34.6 g/dl (31.0-36.0); Mean Corpuscular Hemoglobin 32.7 pg (27.0-33.0); Mean Corpuscular Volume 94.5 fL (80.0-98.0); Monocytes Absolute Auto 0.4 X10*3/uL (0.1-1.2); Monocytes Percent Auto 10.6 % (2-11); Neutrophils Absolute Auto 2.3 x10*3/uL (2.0-8.3); Platelet Count 123 X10*3/uL (160-400); Red Blood Count 4.19 X10*6/uL (4.60-5.80); Red Cell Distribution Width 12.2 % (11.0-16.0); White Blood Count 4.2 X10*3/uL (4.8-10.8)
[2023-10-10 07:48] LABS: Estimated Average Glucose 108 mg/dL; Hemoglobin A1C 130.2852 umol/L; Hemoglobin A1c % 5.4 % (<6.0)
[2023-10-10 07:53] LABS: Creatinine Urine 211.33 mg/dL
[2023-10-10 07:55] LABS: Alanine Aminotransferase 38 U/L (0-40); Albumin Level 4.1 g/dL (3.5-5.0); Alkaline Phosphatase 62 U/L (39-117); Aspartate Amino Transferase 25 U/L (5-37); Bilirubin Direct 0.3 mg/dL (0.0-0.5); Bilirubin Total 0.8 mg/dL (0.0-1.0); Cholesterol 152 mg/dL (<200); HDL Cholesterol 36 mg/dL (>40); LDL Cholesterol Calculated 69 mg/dL (<100); Total Protein 6.7 g/dL (6.5-8.0); Triglycerides 235 mg/dL (<150)
[2023-10-10 08:12] LABS: Free T4 (Free Thyroxine) 0.99 ng/dL (0.71-1.85); Thyroid Stimulating Hormone 5.52 uIU/mL (0.32-4.0)
[2023-10-10 08:16] LABS: Folate 14.9 ng/mL (> or = 4.0); Vitamin B12 454 pg/mL (200-900)
[2023-10-10 08:35] LABS: HBS Num1 3.06 mIU/mL (0-7.99); HBc Num1 0.08 S/CO (0.00-0.79); HBsAGNum1 0.18 S/CO (0.00-0.99); Hepatitis B Core Antibody Nonreactive (Nonreactive); Hepatitis B Surface Antigen Negative (Negative); ~HepC Num1 0.09 S/CO (0.00-0.79); ~Hepatitis B Surface Antibody NONREACTIVE (Nonreactive); ~Hepatitis C Antibody Nonreactive (Nonreactive)
== END 2023-10-10 06:07 | disposition home or self-care (01) ==
LOC: HO.LAB 06:06
PROVIDERS: PCP Internal Medicine; Visit Provider Internal Medicine
DX: E11.65 Type 2 diabetes mellitus with hyperglycemia (principal); E03.9 Hypothyroidism, unspecified; R79.89 Other specified abnormal findings of blood chemistry; E78.00 Pure hypercholesterolemia, unspecified
CPT/HCPCS: 36415; 80061; 80076; 82570; 82607; 82746; 83036; 84439; 84443; 85025; 86704; 86706; 86803; 87340

== ENCOUNTER → 2023-10-10 23:59 | Outpatient (BNV) | payer OTHER, SELFPAY ==
--- NOTE | 2023-10-11 15:18 | A.OFFVIS_ITS ---
Intake Visit Reasons: Remote ICD monitoring- [facility] Allergies No Known Allergies Allergy (Verified 10/27/22 14:11) [facility] Medical History Left bundle branch block Cardiomyopathy Annual physical exam Paroxysmal atrial fibrillation Obesity (BMI 30-39.9) Congestive heart failure Cancer of oropharynx Anxiety Erectile dysfunction Vitamin D deficiency Atrial fibrillation Fatty liver Hypercholesterolemia Hypertension Surgical History History of implantable cardioverter-defibrillator (ICD) insertion History of tonsillectomy Hx of cholecystectomy History of bilateral knee arthroplasty History of cardioversion Hx of knee surgery Family History Father Lung cancer Mother Diabetes Brother Substance abuse Social History Housing: House Alcohol intake: current Alcohol intake frequency: holidays/special occasions only Patient Tobacco Use Status: Never used Tobacco e-Cigarette/Vaping Use: Never Used Second Hand Smoke Exposure: No service: Yes Current occupational status: employed Cognitive needs: No Hearing needs: No Vision needs: Yes Office Procedures Cardiac Device Check Cardiac Device Check Details: Remote ICD report generated 09/02/2023. ICD function is adequate. Bi V pacing 97% of time. No episodes of atrial fibrillation noted [id number] Cardiac Interrogation, implant defibrillator w/interim Procedure code (CPT) selection complete Assessment & Plan Assessment & Plan (1) Biventricular ICD (implantable cardioverter-defibrillator) in place: Code(s): Z95.810 - Presence of automatic (implantable) cardiac defibrillator Category: Medical Plan: See above Coding Level of Care Code Procedure Only Diagnoses Biventricular ICD (implantable cardioverter-defibrillator) in place Z95.810 CPT Codes Cardiac Device Check - Cardiac Device 13: 72730-[place] Cardiac Interrogation, implant defibrillator w/interim ([id number])
== END ==
PROVIDERS: PCP Internal Medicine; Visit Provider Internal Medicine Cardiovascular Disease
DX: Z45.02 Encounter for adjustment and management of automatic implantable cardiac defibrillator (principal)
CPT/HCPCS: 93295

== ENCOUNTER 2023-10-12 08:03 | Outpatient (REF) | payer OTHER, SELFPAY ==
--- NOTE | ~2023-10-12 | US_ITS ---
EXAMINATION: US ABDOMEN COMPLETE CLINICAL INFORMATION: Other specified abnormal findings of blood chemistry. COMPARISON: CT abdomen and pelvis 02/13/2016. MR abdomen 06/27/2012. Ultrasound abdomen 05/12/2012 and 08/05/2010. X-ray KUB 05/12/2012. TECHNIQUE: Real-time imaging of the abdominal viscera. Limited visualization due to bowel gas and body habitus. FINDINGS: PANCREAS: Limited visualization of pancreatic tail and head. Imaged portion of pancreatic body is unremarkable. ABDOMINAL AORTA: The proximal, mid, and distal segments are normal in caliber. INFERIOR VENA CAVA: Visualized portions are normal. LIVER: Increased hepatic parenchymal heterogeneity and echogenicity could be associated with hepatocellular disease/hepatic steatosis and severely limits visualization. Correlation with liver function tests and clinical exam recommended to determine further management. GALLBLADDER: Surgically absent. COMMON BILE DUCT: Normal in caliber measuring 0.79 cm in diameter. RIGHT KIDNEY: No hydronephrosis. No renal calculi. Limited visualization. The kidney measures 13.1 cm in maximum dimension. LEFT KIDNEY: No hydronephrosis. No renal calculi. Limited visualization. The kidney measures 11.9 cm in maximum dimension. SPLEEN: Normal. The spleen measures 11.8 cm in maximum dimension. FREE FLUID: None. US/US abdomen complete IMPRESSION: 1. Increased hepatic parenchymal heterogeneity and echogenicity could be associated with hepatocellular disease/hepatic steatosis and severely limits visualization. Correlation with liver function tests and clinical exam recommended to determine further management. 2. Gallbladder surgically absent. Electronically signed by: Janette Sterling MD 10/17/2023 07:45 AM EDT
== END 2023-10-12 08:04 | disposition home or self-care (01) ==
LOC: HO.US 08:03
PROVIDERS: PCP Internal Medicine; Visit Provider Internal Medicine
DX: R79.89 Other specified abnormal findings of blood chemistry (principal)
CPT/HCPCS: 76700

== ENCOUNTER 2023-11-07 13:57 | Outpatient (AMB) | payer OTHER, SELFPAY ==
[2023-11-07 14:04] VITALS: BP 120/76; PULSE 83; BMI 41.1
--- NOTE | 2023-11-07 14:04 | MHC.OFFVIS ---
Vital Signs 11/07/23 14:04 Height 6 ft 1 in Weight 311 lb 11.738 oz BMI 41.1 BP 120/76 Blood Pressure Location Lt brachial Position Sitting Pulse 83 Pulse Source Monitor Intake Visit Reasons: 6 mth w/ mark ck Digital Sales Manager Required: No Accompanied by: Self / Same As Patient Allergies No Known Allergies Allergy (Verified 10/27/22 14:11) HPI Comments Details: Tim comes for follow-up. He has been doing extremely well. He maintains activity level without any restriction. Denies any heart failure symptoms. No orthopnea, PND, leg edema or progressive shortness of breath. No chest pain syndrome. No palpitations, lightheadedness, syncope, ICD discharge. No bleeding issues or neurologic events. No exertional chest pain. Takes all his medications regularly. [facility] Medical History (Updated 11/07/23 @ 15:14 by Roel Benjamin MD) Congestive heart failure LFT elevation Left bundle branch block Cardiomyopathy Annual physical exam Paroxysmal atrial fibrillation Obesity (BMI 30-39.9) Cancer of oropharynx Anxiety Erectile dysfunction Vitamin D deficiency Atrial fibrillation Fatty liver Hypercholesterolemia Hypertension Surgical History History of implantable cardioverter-defibrillator (ICD) insertion History of tonsillectomy Hx of cholecystectomy History of bilateral knee arthroplasty History of cardioversion Hx of knee surgery Family History Father Lung cancer Mother Diabetes Brother Substance abuse Social History Housing: House Alcohol intake: current Alcohol intake frequency: holidays/special occasions only Patient Tobacco Use Status: Never used Tobacco e-Cigarette/Vaping Use: Never Used Second Hand Smoke Exposure: No service: Yes Current occupational status: employed Cognitive needs: No Hearing needs: No Vision needs: Yes Review of Systems Const Denies chills, Denies fatigue, Denies fever(s), Denies frequent falls, Denies weakness, Denies weight gain and Denies weight loss ENT Denies dizziness Card Denies chest pain, Denies leg edema, Denies lightheadedness, Denies palpitations, Denies dyspnea and Denies dyspnea on exertion Resp Denies cough, Denies dyspnea and Denies dyspnea on exertion GI Denies hematochezia Musc Denies abnormal gait, Denies muscle weakness, Denies numbness, Denies radiating pain into limb and Denies tingling Neuro Denies abnormal gait, Denies dizziness, Denies frequent falls, Denies numbness, Denies tingling and Denies weakness Endo Denies fatigue and Denies palpitations Physical Exam Vital Signs: Last Vital Signs Pulse 83 11/07/23 14:04 BP 120/76 11/07/23 14:04 BMI result Body Mass Index 41.1 Const General: cooperative, healthy appearing, comfortable and no acute distress Orientation/consciousness: patient oriented x3 Neck Neck: Yes normal visual inspection and Yes no JVD Carotids: normal carotid upstroke Resp Effort & Inspection: normal respiratory effort Auscultation: clear to auscultation bilaterally, no crackles, no rales, no rhonchi and no wheezes Cardio Jugular venous distension: no JVD Rate: regular rate Rhythm: regular rhythm Heart sounds: S1 normal heart sound present, S2 normal heart sound present, no click, no gallops and no murmurs Peripheral pulses: Peripheral pulses 2+ throughout GI Inspection: Yes normal to inspection Neuro General: patient oriented x3 Extrem General: Yes normal to inspection, No no pedal edema and No calf tenderness Office Procedures Cardiac Device Check Cardiac Device Check Details: Biventricular [facility] ICD in place. Programmed in DDDR at 60 beats per minute. Biventricular pacing 97% of time. No atrial fibrillation noted. One episode of nonsustained VT noted. Atrial and biventricular capture thresholds are stable. LV capture thresholds were reprogrammed to enhance safety. Atrial ventricular sensing is excellent. Pacing and shock lead impedance is stable. Battery life is at about 5 and half years [id number] Cardiac Device Check, multi lead implantable defibrillator Procedure code (CPT) selection complete EKG Details: EKG shows atrially sensed, ventricularly paced rhythm with LV pacing. [id number], Complete Assessment & Plan Assessment & Plan (1) Cardiomyopathy: Comment: ICD December 2021 Code(s): I42.9 - Cardiomyopathy, unspecified Category: Medical Plan: Cardiomyopathy process, nonischemic most likely suspected to be related to left bundle-branch block. LV ejection fraction has improved with cardiac resynchronization therapy. Will continue monitor by echocardiogram. Signs and symptoms of heart failure were discussed. Clinically doing well. Continue aggressive neurohormonal modulation with metoprolol as as losartan therapy. Continue rhythm control approach. Continue aggressive blood pressure control, currently optimized. Advised to monitor blood pressure at home maintain a log. Continue CPAP therapy. Continue participate in weight loss program. (2) Biventricular ICD (implantable cardioverter-defibrillator) in place: Code(s): Z95.810 - Presence of automatic (implantable) cardiac defibrillator Category: Medical Plan: Bi V ICD in place for cardiomyopathy and left bundle-branch block with improved advised LV ejection fraction. Will continue monitor remotely for heart failure as well as device check. Follow up in the clinic in 6 months time. (3) Paroxysmal atrial fibrillation: Code(s): I48.0 - Paroxysmal atrial fibrillation Category: Medical Plan: Paroxysmal atrial fibrillation has done extremely well with rhythm control approach will continue pursue rhythm control approach. Has tolerated Multaq therapy very well. Continue the same. Will follow-up for atrial fibrillation recurrence by device telemetry. Continue full oral anticoagulation, currently on apixaban 5 mg b.i.d.. Semi annual renal function test should be pursued. Avoidance of stimulants was discussed. Follow up in the clinic in 6 months time, sooner p.r.n.. Thank you for allowing me to partake in his care Orders: Orders CA echo transthoracic complete 6 Months I42.9 - Cardiomyopathy, unspecified Coding Level of Care Code Est Pt Level 4 (48469) Diagnoses Cardiomyopathy I42.9 Biventricular ICD (implantable cardioverter-defibrillator) in place Z95.810 Paroxysmal atrial fibrillation I48.0 CPT Codes Cardiac Device Check - Cardiac Device 6: 51270-PD Cardiac Device Check, multi lead implantable defibrillator ([id number]) EKG - CPT: 78835-[id number], Complete ([id number])
== END 2023-11-07 14:24 | disposition home or self-care (01) ==
PROVIDERS: PCP Internal Medicine; Visit Provider Internal Medicine Cardiovascular Disease
DX: I42.9 Cardiomyopathy, unspecified (principal); Z95.810 Presence of automatic (implantable) cardiac defibrillator; I48.0 Paroxysmal atrial fibrillation
CPT/HCPCS: 93010; 93284; 99214

== ENCOUNTER → 2023-11-07 13:57 | Outpatient (BNVA) | payer OTHER, SELFPAY | PROVIDERS: PCP Internal Medicine; Visit Provider Internal Medicine Cardiovascular Disease | DX: I42.9 Cardiomyopathy, unspecified (principal); I48.0 Paroxysmal atrial fibrillation; Z79.01 Long term (current) use of anticoagulants; Z45.02 Encounter for adjustment and management of automatic implantable cardiac defibrillator | CPT/HCPCS: 93005 ==

== ENCOUNTER 2024-01-08 06:06 | Outpatient (REF) | payer OTHER, SELFPAY ==
[2024-01-08 07:22] LABS: Hematocrit 40.9 % (42.0-52.0); Hemoglobin 14.2 g/dl (14.0-18.0); Mean Corpuscular HGB Conc 34.7 g/dl (31.0-36.0); Mean Corpuscular Hemoglobin 32.1 pg (27.0-33.0); Mean Corpuscular Volume 92.5 fL (80.0-98.0); Mean Platelet Volume 8.8 fL (9.4-12.4); Platelet Count 142 X10*3/uL (160-400); Red Blood Count 4.42 X10*6/uL (4.60-5.80); Red Cell Distribution Width 11.9 % (11.0-16.0)
[2024-01-08 08:03] LABS: Anion Gap 16 (12-20); Blood Urea Nitrogen 12 mg/dL (9-16); Calcium 9.4 mg/dL (8.4-10.2); Carbon Dioxide 22 mmol/L (22-29); Chloride 105 mmol/L (96-108); Estimated Glomerular Filt Rate > 60; Glucose Random 124 mg/dL (60-115); Potassium 4.2 mmol/L (3.3-5.1); Sodium 139 mmol/L (135-145)
[2024-01-08 08:28] LABS: Free T4 (Free Thyroxine) 0.99 ng/dL (0.71-1.85); Thyroid Stimulating Hormone 7.21 uIU/mL (0.32-4.0)
== END 2024-01-08 06:07 | disposition home or self-care (01) ==
LOC: HO.LAB 06:06
PROVIDERS: PCP Internal Medicine; Visit Provider Internal Medicine Cardiovascular Disease
DX: I48.0 Paroxysmal atrial fibrillation (principal); E11.65 Type 2 diabetes mellitus with hyperglycemia
CPT/HCPCS: 36415; 80048; 84439; 84443; 85027

== ENCOUNTER → 2024-01-09 23:59 | Outpatient (BNV) | payer OTHER, SELFPAY ==
--- NOTE | 2024-01-10 10:35 | MHC.OFFVIS ---
Intake Visit Reasons: REmote ICD monitoring- [facility] Allergies No Known Allergies Allergy (Verified 10/27/22 14:11) [facility] Medical History (Updated 11/07/23 @ 15:14 by Roel Benjamin MD) Congestive heart failure LFT elevation Left bundle branch block Cardiomyopathy Annual physical exam Paroxysmal atrial fibrillation Obesity (BMI 30-39.9) Cancer of oropharynx Anxiety Erectile dysfunction Vitamin D deficiency Atrial fibrillation Fatty liver Hypercholesterolemia Hypertension Surgical History History of implantable cardioverter-defibrillator (ICD) insertion History of tonsillectomy Hx of cholecystectomy History of bilateral knee arthroplasty History of cardioversion Hx of knee surgery Family History Father Lung cancer Mother Diabetes Brother Substance abuse Social History Housing: House Alcohol intake: current Alcohol intake frequency: holidays/special occasions only Patient Tobacco Use Status: Never used Tobacco e-Cigarette/Vaping Use: Never Used Second Hand Smoke Exposure: No service: Yes Current occupational status: employed Cognitive needs: No Hearing needs: No Vision needs: Yes Office Procedures Cardiac Device Check Cardiac Device Check Details: Remote ICD report generated 01/09/2024. ICD function is adequate [id number] Cardiac Interrogation, implant defibrillator w/interim Procedure code (CPT) selection complete Assessment & Plan Assessment & Plan (1) Biventricular ICD (implantable cardioverter-defibrillator) in place: Code(s): Z95.810 - Presence of automatic (implantable) cardiac defibrillator Category: Medical Plan: See above Coding Level of Care Code Procedure Only Diagnoses Biventricular ICD (implantable cardioverter-defibrillator) in place Z95.810 CPT Codes Cardiac Device Check - Cardiac Device 13: [id number] Cardiac Interrogation, implant defibrillator w/interim ([id number])
== END ==
PROVIDERS: PCP Internal Medicine; Visit Provider Internal Medicine Cardiovascular Disease
DX: Z45.02 Encounter for adjustment and management of automatic implantable cardiac defibrillator (principal)
CPT/HCPCS: 93295

== ENCOUNTER 2024-02-15 13:06 | Outpatient (AMB) | payer OTHER, SELFPAY ==
--- NOTE | 2024-02-15 13:12 | MHC.PC.OV ---
Vital Signs 02/15/24 13:14 Height 6 ft 1 in Weight 318 lb BMI 42.0 BP 144/88 H Blood Pressure Location Lt brachial Position Sitting Pulse 85 Pulse Source Pulse Oximeter Pulse Oximetry (%) 97 Oxygen Delivery Method Room Air Intake Visit Reasons: Annual exam, Dr florez office increased HTN meds, pt has bp log Quality Assurance Supervisor Chassis Required: No Accompanied by: Self / Same As Patient Allergies No Known Allergies Allergy (Verified 02/15/24 13:12) Medication List - Last Reconciled 02/15/24 by Mario Dickerson MD amlodipine 5 mg PO DAILY apixaban (Eliquis) 5 mg PO BID atorvastatin 10 mg PO DAILY coenzyme Q10 (Co Q-10) 400 mg PO DAILY [CPAP Resmed Full face MASK Large Pressure 10 cm humudified air As directed] [CPAP Supplies As directed] dronedarone (Multaq) 400 mg PO BID levothyroxine 137 mcg PO DAILY 90 days losartan 100 mg PO DAILY metoprolol succinate ER 50 mg (2 x 25 mg) PO DAILY 90 days pilocarpine HCl 5 mg PO BID 90 days tadalafil (Cialis) 10 mg PO DAILY PRN 30 days Tobacco use date assessed: 02/15/24 Fall risk assessment: No Falls in past year Last assessed Fall Risk: 02/15/24 Dental Screening Dental Screen Date: 02/15/24 Did you have a dental visit in the last 12 months?: Yes Did you have a dental problem in the last 6 months where you did not have access to dental care?: No Was dental information given to patient?: Patient has dentist HPI Annual exam HPI Details toe problem, metoprolol, DM [id number] patient is a 68-year-old male presenting with a follow-up for management of his hypertension and diabetes mellitus. The patient notes a recent increase in his HbA1c to 6.7% from values typically below 6%. He had an increase in supraventricular tachycardia episodes noted at 17 beats at 10:30 AM, and a related discussion on increasing Metoprolol dosage for blood pressure management was initiated by another healthcare provider. He was hesitant about increasing Metoprolol dosage from 50 mg due to being on three other medications but recognized the need for control of his tachycardia. Additionally, the patient reports ongoing issues with onychomycosis, initially affecting the big toe and now spreading to other toes. He has tried gdxn-[id number] treatments with minimal improvement. Dietary and lifestyle modifications were discussed in relation to his diabetes and associated fatty liver diagnosis. The patient also has a history of throat cancer and participates in regular follow-ups for this condition. - Vaccinations: Updated with Flu, Pneumonia, COVID-19, Shingles, and Tetanus. - Eye Exam: Recommends annual examination due to diabetes. - Monitoring A1c levels for diabetes management. - Discussion of weight management and increased physical activity. - Discussion on maintaining blood pressure control. - Regular monitoring of cardiovascular health due to history of tachycardia. - Alcohol consumption: A couple of drinks a week, two to three per session. - Denies smoking and use of recreational drugs. - Reports regular use of CPAP for sleep apnea. - Physical activity is noted, but patient acknowledges the need for increased exercise. - Cardiovascular: Denies chest pain and heartburn. - Respiratory: Denies shortness of breath or wheezing. - Gastrointestinal: Reports fullness from possible dry mouth leading to difficulty swallowing occasionally; denies nausea and vomiting. - Genitourinary: Reports waking up four times at night to urinate. - Neurologic: Denies dizziness or syncope. - Labs: Blood glucose (124), A1c (6.7%), Cholesterol LDL (69), Triglycerides (235), Thyroid (7.21). - Abdominal Ultrasound: Fatty liver identified. [facility] Medical History Congestive heart failure LFT elevation Left bundle branch block Cardiomyopathy Annual physical exam Paroxysmal atrial fibrillation Obesity (BMI 30-39.9) Cancer of oropharynx Anxiety Erectile dysfunction Vitamin D deficiency Atrial fibrillation Fatty liver Hypercholesterolemia Hypertension Surgical History History of implantable cardioverter-defibrillator (ICD) insertion History of tonsillectomy Hx of cholecystectomy History of bilateral knee arthroplasty History of cardioversion Hx of knee surgery Family History Father Lung cancer Mother Diabetes Brother Substance abuse Social History (Updated 02/15/24 @ 13:44 by Mario Dickerson MD) Housing: House Alcohol intake: current Alcohol intake frequency: holidays/special occasions only Comment: 2 x a week 2-3 drinks Patient Tobacco Use Status: Never used Tobacco e-Cigarette/Vaping Use: Never Used Second Hand Smoke Exposure: No service: Yes Current occupational status: employed Cognitive needs: No Hearing needs: No Vision needs: Yes Questionnaire PHQ-9 Over the last 2 weeks, how often have you been bothered by any of the following problems? 1. Little interest or pleasure in doing things: not at all 2. Feeling down, depressed, or hopeless: not at all 3. Trouble falling or staying asleep, or sleeping too much: not at all 4. Feeling tired or having little energy: more than half the days 5. Poor appetite or overeating: not at all 6. Feeling bad about yourself - or that you are a failure or have let yourself or your family down: not at all 7. Trouble concentrating on things, such as reading the newspaper or watching television: not at all 8. Moving or speaking so slowly that other people could have noticed. Or the opposite - being so fidgety or restless that you have been moving around a lot more than usual: not at all 9. Thoughts that you would be better off or of hurting yourself in some way: not at all Total score: 2 Depression Screening Interpretation: Negative Depression Screening Done: Yes Source: Developed by Drs. Chava Lynch, Leslie Menard, Brandon Bell and colleagues, with an educational sheridan from [employer]. Thrive Questionnaire Date Thrive assessed: 02/15/24 I am a: Patient What is your living situation today?: I have a steady place to live Within the past 12 months, did the food you bought not last and you didn't have the money to get more?: Never true Within the past 12 months, did you worry whether your food would run out before you got money to buy more?: Never true Do you have trouble paying for medicines?: No Do you have trouble getting transportation to medical appointments?: No Do you have trouble paying your heating and electricity bill?: No Do you have trouble taking care of your child, family member or friend?: No Do you have trouble with day-to-day activities such as bathing, preparing meals, shopping, managing finances, etc.?: No Are you currently unemployed and looking for a job?: No Are you interested in more education?: No Please select the resources that you would like help with: None Currently or been in a relationship where the following occur: No concerns reported THRIVE Score: 0 AUDIT C Alcohol Use Questionnaire (AUDIT-C) 2. How many drinks containing alcohol do you have on a typical day when you are drinking?: 3 or 4 3. How often do you have six or more drinks on one occasion?: Less than monthly Total Score: 2 GABRIELA-7 AMB Questionnaire GABRIELA-7 Date GABRIELA - 7 assessed: 02/15/24 Feeling nervous, anxious, or on edge: 0 = Not at all Not being able to stop or control worryin = Not at all Worrying too much about different things: 0 = Not at all Trouble relaxin = Not at all Being so restless that it is hard to sit still: 0 = Not at all Becoming easily annoyed or irritable: 0 = Not at all Feeling afraid as if something awful might happen: 0 = Not at all Total GABRIELA-7 score (0-4 normal; 5-9 mild; 10-14 moderate; 15-21 severe): 0 Source: Developed by Drs. Chava Lynch, Leslie Menard, Brandon Bell and colleagues, with an educational sheridan from [employer]. Review of Systems Const Denies poor appetite and Denies weakness Eyes Denies no additional complaints ENT Reports Normal hearing present, Denies dizziness, Denies nasal congestion, Denies tinnitus and Denies sore throat Card Denies chest pain, Denies syncope, Denies rapid heart rate and Denies dyspnea Resp Denies cough and Denies dyspnea GI Denies change in stool character, Reports constipation, Denies diarrhea, Denies nausea and Denies vomiting Denies dysuria and Denies urinary frequency Neuro Reports Normal hearing present, Denies confusion, Denies dizziness, Denies syncope and Denies weakness Psych Denies confusion Physical exam (Primary Care) Vital Signs: Last Vital Signs Pulse 85 02/15/24 13:14 BP 144/88 H 02/15/24 13:14 Pulse Ox 97 02/15/24 13:14 Oxygen Delivery Method Room Air 02/15/24 13:14 BMI result Body Mass Index 42.0 Tobacco/Smoking Status: Tobacco use Status Tobacco use date assessed 02/15/24 02/15/24 13:12 Patient Tobacco Use Status Never used Tobacco 02/15/24 13:44 e-Cigarette/Vaping Use Never Used 02/15/24 13:44 PHQ-9: PHQ-9 Score PHQ-9: Total score 2 02/15/24 13:34 Depression Screening Interpretation: Negative Thrive Assessment: Date of Thrive Assessment Date Thrive assessed 02/15/24 02/15/24 13:12 Currently or been in a relationship where the following occur: No concerns reported Const General: No confusion Orientation/consciousness: No confusion HENMT Head: Yes normocephalic Ears: external ears normal and TM's normal bilaterally Face and sinus: Yes normal facial exam Mouth: moist mucous membranes Throat: Yes tonsils normal Eyes Conjunctivae: conjunctivae normal Pupils: Equal, round and reactive pupils present and Pupil accommodation reflex normal Direct Ophthalmoscopy: normal light reflex Neck Neck: No lymphadenopathy Thyroid: Thyroid normal Chest Chest palpation & inspection: normal inspection of the chest Resp Effort & Inspection: normal respiratory effort and no audible wheezes Auscultation: clear to auscultation bilaterally, no crackles, no wheezes and lung sounds not diminished Cardio Rate: regular rate Rhythm: regular rhythm Peripheral pulses: radial pulses present and dorsalis pedis present GI Palpation (GI): no masses Auscultation: normal bowel sounds and normoactive bowel sounds Rectal Exam - Male: Yes deferred Skin General skin exam: no rashes or lesions noted Rashes: no rashes Neuro General: No confusion Cranial nerves: Yes Equal, round and reactive pupils present and Yes Normal hearing present Cognition (Neuro): normal cognition Gait exam (Neuro): Normal gait present Motor exam (neuro): 5/5 motor strength present throughout Deep tendon reflexes (DTR's): Right brachioradialis reflex intensity grade: 2+, Left brachioradialis reflex intensity grade: 2+, Right patellar reflex intensity grade: 2+ and Left patellar reflex intensity grade: 2+ Extrem General: No edema Results AMB Hemoglobin A1c AMB Hemoglobin A1c 6.7 % Last Edit by CARLOS Duron on 02/15/24 13:26 Results Reviewed Results Reviewed: Laboratory Last Values Hgb A1c (Clinic) 6.7 % (4.0-6.0) H 02/15/24 13:26 Coding Level of Care Code Est Pt Prev Care >65y(27820) Diagnoses Annual physical exam Z00.00 Fatty liver K76.0 Cardiomyopathy I42.9 Hypothyroid E03.9 Paroxysmal atrial fibrillation I48.0 Type 2 diabetes mellitus with hyperglycemia E11.65 Essential hypertension I10 Hypertension type: essential hypertension Hypercholesterolemia E78.00 Morbid obesity E66.01 Tinea pedis B35.3 Onychomycosis B35.1 Assessment & Plan Assessment & Plan (1) Annual physical exam: Code(s): Z00.00 - Encounter for general adult medical examination without abnormal findings Category: Medical (2) Fatty liver: Comment: October 2023 ultrasound Code(s): K76.0 - Fatty (change of) liver, not elsewhere classified Category: Medical (3) Cardiomyopathy: Comment: ICD December 2021 Code(s): I42.9 - Cardiomyopathy, unspecified Category: Medical (4) Hypothyroid: Code(s): E03.9 - Hypothyroidism, unspecified Category: Medical (5) Paroxysmal atrial fibrillation: Code(s): I48.0 - Paroxysmal atrial fibrillation Category: Medical (6) Type 2 diabetes mellitus with hyperglycemia: Code(s): E11.65 - Type 2 diabetes mellitus with hyperglycemia Category: Medical (7) Hypertension: Comment: Nuclear stress test July 2019 normal ejection fraction 54% LV dilatation Code(s): I10 - Essential (primary) hypertension Category: Medical Qualifiers: Hypertension type: essential hypertension Qualified Code(s): I10 - Essential (primary) hypertension (8) Hypercholesterolemia: Code(s): E78.00 - Pure hypercholesterolemia, unspecified Category: Medical (9) Morbid obesity: Code(s): E66.01 - Morbid (severe) obesity due to excess calories Category: Medical (10) Tinea pedis: Code(s): B35.3 - Tinea pedis Category: Medical (11) Onychomycosis: Code(s): B35.1 - Tinea unguium Category: Medical Plan - Reinforce adherence to diabetic and hypertension medications with careful monitoring. - Follow up with dermatology for toenail fungus management, possibly referring to a paper cleaner. - Optimizing blood pressure control with the adjusted metoprolol regimen. - Discuss potential initiation of weight management medications like Mounjaro and evaluate coverage options. - Evaluate thyroid function with repeat testing due end of the month. - Scheduled follow-up with feller buncher operator in April for pacemaker and supraventricular tachycardia management. We discussed the elevation in HbA1c to 6.7% and the importance of maintaining strict glycemic control. For his hypertension and tachycardia, I recommended a gradual increase in Metoprolol and initiated discussions about its cardiac benefits. The patient was informed about potential treatments for onychomycosis, and the challenges associated with fungal infections. I also highlighted the importance of weight management and frequent physical activity to address his fatty liver and overall health. The patient was advised about the benefits and risks of starting weight loss medication and the potential effects on weight and sleep apnea, taking into account coverage and availability. We agreed to monitor blood pressure and the effectiveness of medication adjustments. - Continue taking medications as prescribed, and monitor blood pressure twice a week. - Increase physical activity for better weight management and cardiovascular health. - Schedule an annual eye exam due to diabetes. - Report blood pressure readings through the patient portal after a month. - Follow up with a paper cleaner for foot care, particularly concerning toenail fungus. - Schedule thyroid testing before the next visit. - Consult the provided referrals for eye care. - Maintain optimal dietary practices to address fatty liver and overall health. Orders: Orders AMB Hemoglobin A1c Today Z13.9 - Encounter for screening, unspecified Referrals Podiatry Referral B35.1 - Tinea unguium, B35.3 - Tinea pedis, E11.65 - Type 2 diabetes mellitus with hyperglycemia Ophthalmology Referral E11.65 - Type 2 diabetes mellitus with hyperglycemia Medications: New tirzepatide (Mounjaro) for 4 weeks 2.5 mg (0.5 mL) subcut QWEEK 2 mL 1RF E11.65 - Type 2 diabetes mellitus with hyperglycemia, E66.01 - Morbid (severe) obesity due to excess calories
[2024-02-15 13:14] VITALS: BP 144/88; PULSE 85; O2SAT 97; BMI 42.0
--- OUTSIDE RECORDS SUMMARY | 2024-02-15 14:12 | XMS_ITS | Patient Health Record ---
Author Organization [facility] Address [address] [place] [address] Care Team Providers Care Waist Fitter Name Role Phone Po Mario COSTA Primary Care Provider Chava Brennan [phone] REASON FOR REFERRAL No Information MEDICATIONS Medication SIG (Take, Route, Frequency, Duration) Notes Start Date End Date Status Metoprolol Succinate ER 25 MG TAKE 1 TABLET BY MOUTH DAILY Oral for 90 Active Aspir-81 81mg Not-Ta martinez Losartan Potassium 100 MG Oral for 90 Active CoQ-10 400 MG as directed Orally Active Centrum Silver Not-T aking Levothyroxine Sodium 25 MCG Oral for 90 Not-Taking Atorvastatin Calcium 10 MG 1 tablet Oral ly Once a day Active Pilocarpine HCl 5 MG Oral for 90 Active amLODIPine Besylate 10 MG 1 tablet Orall y Once a day Active Eliquis 5 MG 1 tablet Orally twic e a day Active IMMUNIZATIONS Vaccine Route Administration Date Status Comme nts Influenza Unknown 11/13/2021 Administered SOCIAL HISTORY Sex Assigned At : Social History Observation Description Sex Assigned At Unknown PROBLEMS Problem Type ICD Code Onset Dates Problem Status W/U Status Risk SNOMED Code Notes Problem Rectal bleeding (K62.5) Active confirmed Rectal bleeding (89821416) Problem Fatty liver (K76.0) Active confirmed 398610526 Problem Heme positive stool (R19.5) Active confirmed 02957946 Problem Diverticulosis of colon (K57.30) Active confirmed Diverticulosi s of colon (723388425) PLAN OF TREATMENT Pending Test Test Name Order Date LIVER PROFILE 10/26/2012 Future Test Test Name Order Date COLONOSCOPY 07/07/2015 COLONOSCOPY 11/18/2021 Insurance Providers Payer Name Payer Address Payer Phone Subscriber Number Group Number Insured Name Patient Relationship to Insured Coverage Start Date Coverage End Date [facility] [address] [place] [phone] [id number] PEPITO GUAN Self - patient is the insured MEDICAL (GENERAL) HISTORY Medical History History ICD Code EGD 08-26-2010--normal Negative colonoscopy in 01/14 007 except diverticulosis and internal hemorrhoids Hyperlipidemia Hypertension Denies [place],DM,CVA,Lung disease,renal dise ase Hospitalizations for abdomin al pain 2010 and April of 2012, with associated elevation of the liver enzymes-he was found to have gallstones during the most recent hospitalization, but there was no evidence of biliary obstruction Fatty liver -Bx 06/2012 with mild steatosis and mild inflammation-minimal fibrosis Sleep apnea--uses CPAP History of A. fib--s/p electrical cardio version--sees Dr. 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 Benjamin--probably getting a pacemaker for fall Surgical History Surgery Date(Month/Year) Knee surgery Vasectomy [facility] by Dr. Vásquez in 06/2014-had an intraop liver bx as above Bilateral knee replacement 2016 and August Probable pacemaker - Dr. Benjamin-for later in 2021
== END 2024-02-15 14:12 | disposition home or self-care (01) ==
PROVIDERS: PCP Internal Medicine; Visit Provider Internal Medicine
DX: Z00.00 Encounter for general adult medical examination without abnormal findings (principal); I42.9 Cardiomyopathy, unspecified; I48.0 Paroxysmal atrial fibrillation; E11.65 Type 2 diabetes mellitus with hyperglycemia; E66.01 Morbid (severe) obesity due to excess calories; K76.0 Fatty (change of) liver, not elsewhere classified; E03.9 Hypothyroidism, unspecified; I10 Essential (primary) hypertension; E78.00 Pure hypercholesterolemia, unspecified; B35.3 Tinea pedis; B35.1 Tinea unguium

== ENCOUNTER → 2024-02-15 13:06 | Outpatient (BNVA) | payer OTHER, SELFPAY | PROVIDERS: PCP Internal Medicine; Visit Provider Internal Medicine | DX: Z00.00 Encounter for general adult medical examination without abnormal findings (principal); K76.0 Fatty (change of) liver, not elsewhere classified; I42.9 Cardiomyopathy, unspecified; E03.9 Hypothyroidism, unspecified; I48.0 Paroxysmal atrial fibrillation; E11.65 Type 2 diabetes mellitus with hyperglycemia; I10 Essential (primary) hypertension; E78.00 Pure hypercholesterolemia, unspecified; E66.01 Morbid (severe) obesity due to excess calories; Z68.41 Body mass index [BMI] 40.0-44.9, adult; B35.3 Tinea pedis; B35.1 Tinea unguium | CPT/HCPCS: 83036; 96127 ==

== ENCOUNTER 2024-04-09 06:06 | Outpatient (REF) | payer OTHER, SELFPAY ==
--- OUTSIDE RECORDS SUMMARY | 2024-04-09 06:09 | XMS_ITS | Patient Health Record ---
Author Organization [facility] Address [address] [place] [address] Care Team Providers Care Kettle Loader Name Role Phone Po Mario COSTA Primary Care Provider Chava Brennan [phone] REASON FOR REFERRAL No Information MEDICATIONS Medication [...] Rectal bleeding (K62.5) Active confirmed Rectal bleeding (73894258) Problem Fatty liver (K76.0) Active confirmed 455908218 Problem Heme positive stool (R19.5) Active confirmed 25844695 Problem Diverticulosis of colon (K57.30) Active confirmed Diverticulosi s of colon (580590871) PLAN OF TREATMENT Pending Test Test Name Order Date LIVER PROFILE 10/26/2012 Future Test Test Name Order Date COLONOSCOPY 07/07/2015 COLONOSCOPY 11/18/2021 Insurance Providers Payer Name Payer Address Payer Phone Subscriber Number Group Number Insured Name Patient Relationship to Insured Coverage Start Date Coverage End Date [facility] [address] [place] [phone] [id number] PEPITO GUAN Self - patient is the insured MEDICAL (GENERAL) HISTORY Medical History History ICD Code EGD 08-26-2010--normal Negative colonoscopy in 01/14 007 except diverticulosis and internal hemorrhoids Hyperlipidemia Hypertension Denies [place],DM,CVA,Lung disease,renal dise ase Hospitalizations for abdomin al [...]
[2024-04-09 08:47] LABS: Free T4 (Free Thyroxine) 1.02 ng/dL (0.71-1.85); Thyroid Stimulating Hormone 4.12 uIU/mL (0.32-4.0)
== END 2024-04-09 06:07 | disposition home or self-care (01) ==
LOC: HO.LAB 06:06
PROVIDERS: PCP Internal Medicine; Visit Provider Internal Medicine
DX: E03.9 Hypothyroidism, unspecified (principal)
CPT/HCPCS: 36415; 84439; 84443

== ENCOUNTER → 2024-04-09 23:59 | Outpatient (BNV) | payer OTHER, SELFPAY ==
--- NOTE | 2024-04-15 12:38 | A.OFFVIS_ITS ---
Intake Visit Reasons: Remote ICD monitoring- [facility] Allergies No Known Allergies Allergy (Verified 02/15/24 13:12) [facility] Medical History Congestive heart failure LFT elevation Left bundle branch block Cardiomyopathy Annual physical exam Paroxysmal atrial fibrillation Obesity (BMI 30-39.9) Cancer of oropharynx Anxiety Erectile dysfunction Vitamin D deficiency Atrial fibrillation Fatty liver Hypercholesterolemia Hypertension Surgical History History of implantable cardioverter-defibrillator (ICD) insertion History of tonsillectomy Hx of cholecystectomy History of bilateral knee arthroplasty History of cardioversion Hx of knee surgery Family History Father Lung cancer Mother Diabetes Brother Substance abuse Social History (Updated 02/15/24 @ 13:44 by Mario Dickerson MD) Housing: House Alcohol intake: current Alcohol intake frequency: holidays/special occasions only Comment: 2 x a week 2-3 drinks Patient Tobacco Use Status: Never used Tobacco e-Cigarette/Vaping Use: Never Used Second Hand Smoke Exposure: No service: Yes Current occupational status: employed Cognitive needs: No Hearing needs: No Vision needs: Yes Office Procedures Cardiac Device Check Cardiac Device Check Details: Remote ICD report generated 04/09/2024. ICD function is adequate. [id number] Cardiac Interrogation, implant defibrillator w/interim Procedure code (CPT) selection complete Assessment & Plan Assessment & Plan (1) Biventricular ICD (implantable cardioverter-defibrillator) in place: Code(s): Z95.810 - Presence of automatic (implantable) cardiac defibrillator Category: Medical Plan: See above Coding Level of Care Code Procedure Only Diagnoses Biventricular ICD (implantable cardioverter-defibrillator) in place Z95.810 CPT Codes Cardiac Device Check - Cardiac Device 13: [id number] Cardiac Interrogation, implant defibrillator w/interim ([id number])
== END ==
PROVIDERS: PCP Internal Medicine; Visit Provider Internal Medicine Cardiovascular Disease
DX: Z45.02 Encounter for adjustment and management of automatic implantable cardiac defibrillator (principal)
CPT/HCPCS: 93295

== ENCOUNTER → 2024-04-22 14:39 | Outpatient (REF) | payer OTHER, SELFPAY ==
--- NOTE | 2024-04-22 14:42 | CA_ITS ---
Transthoracic Echocardiogram Patient (Last, First, Middle): Kem Garibay M Gender: Male Date of : 1955 Age: 68 Procedure Date: 04/22/2024 Procedure Type: Transthoracic Echocardiogram Location: OP Height: 185.42 cm Weight: 136.08 kg BSA: 2.56 m2 Heart Rate: bpm BP: 140 / 82 mmHg Minister: JESSI Referring MD: Roel Benjamin MD Symptoms: I42.9 - Cardiomyopathy, unspecified Study Quality: Technically Difficult, contrast ECG Rhythm: Sinus Conclusions: - Moderately increased left ventricular cavity size. - The left ventricular systolic function is low normal. The calculated ejection fraction is 54% by biplane method. - Moderately increased right ventricular cavity size. - No obvious valvular pathology seen on this study. Findings Left Ventricle Moderately increased left ventricular cavity size. The left ventricular systolic function is low normal. The calculated ejection fraction is 54% by biplane method. There is no evidence of regional wall motion abnormalities. Diastolic function is normal for age. There is mild septal asymmetric hypertrophy. Right Ventricle Moderately increased right ventricular cavity size. There is low normal right ventricular systolic function. There is an ICD wire seen in the right ventricle. Atria Both atria are normal in size. Aortic Valve The aortic valve was not well visualized. There is no aortic valve stenosis. There is no aortic valve regurgitation. Mitral Valve The mitral valve appears normal. There is no mitral valve regurgitation. There is no mitral valve stenosis. Pulmonic Valve The pulmonic valve is likely normal. Tricuspid Valve There is no tricuspid valve regurgitation. Tricuspid regurgitation envelope is inadequate for calculation of right ventricular systolic pressure. Great Vessels The asc aorta is normal in size. Venous The inferior vena cava is normal in size and collapses greater than 50% with inspiration. Pericardium/Pleural There is no evidence of pericardial effusion. Prior Study Comparison No significant change compared to prior study dated: 04/20/2023. Recommendations, Care & Conclusions No obvious valvular pathology seen on this study. Measurements 2D Linear Measurements IVSd: 1.03 0.6-0.9/0.6-1.0 cm LVIDd: 6.15 3.9-5.3/4.2-5.9 cm LVIDd Index: 2.40 2.4-3.2/2.2-3.1 cm/m2 LVIDs: 4.77 2.0-3.6 cm LVPWd: 0.91 0.7-1.1 cm LA Diam: 4.10 2.7-3.8/3.0-4.0 cm LAIDs Index: 1.60 1.5-2.3 cm/m2 LV Mass: 308.13 67-162/88-224 g LV Mass Index: 120.36 43-95/49-115 g/m2 LVOT Diam: 2.40 3.0+(-)1.3 cm 2D Systolic Function EF 4C: 55.10 >55% EF 2C: 50.80 >55% EF BiP: 53.70 >55% Mitral Valve MV Pk E: 0.65 MV PK A: 0.60 MV Decel Time: 255.00 E/A: 1.10 E'Lateral: 8.59 E'Medial: 7.07 E/E' Med: 9.20 E/E' Lat: 7.50 PHT: 75.00 MVA PHT: 2.93 Decel [place]: 2.53 Aortic Valve AoV Pk Benigno: 1.59 AoV Mn Benigno: 1.17 AoV VTI: 0.38 AoV Pk Grad: 10.00 Aov Mn Grad: 6.00 MOLLY Cont.VTI: 2.35 LVOT LVOT Pk Benigno: 0.86 LVOT Mn Benigno: 0.65 LVOT VTI: 0.20 LVOT Pk Grad: 3.00 LVOT Mn Grad: 2.00 LVOT Diam: 2.40 LVOT Area: 4.52 Diastolic Function MV Pk E: 0.65 MV Pk A: 0.60 E/A: 1.10 E'Medial: 7.07 E/E' Med: 9.20 E' Laterial: 8.59 E/E' Lat: 7.50 Right Ventricle TAPSE (mm): 24.80 TVS' Benigno: 9.45 Tricuspid Valve RA Press: 3.00 Great Vessels Aorta Sinus of Valsalva: 3.91 2.0-3.[address] [place]: 3.11 1.7-3.4 cm Ao Asc: 3.90 2.1-3.4 cm Updated in Other Vendor System with Status of Final Nathan Oreilly MD electronically signed on 04/23/2024 10:24:25 AM with status of Final
--- OUTSIDE RECORDS SUMMARY | 2024-04-22 16:48 | XMS_ITS | Patient Health Record ---
Author Organization [facility] Address [address] [place] [address] Care Team Providers Care Furnace Operator Name Role Phone Po Mario COSTA Primary Care Provider Chava Brennan [phone] Reason For Referral No Information Medications Medication SIG (Take, Route, Frequency, Duration) Notes [...] tablet Orally twic e a day Active Immunizations Vaccine Route Administration Date Status Comme nts Influenza Unknown 11/13/2021 Administered Problems Problem Type SNOMED Code ICD Code Onset Dates Problem Status W/U Status Risk Notes Problem Rectal bleeding (47786234) Rectal bleeding (K62.5) Active confirmed Problem 824870730 Fatty liver (K76.0) Active confirmed Problem 59473755 Heme positive stool (R19.5) Active confirmed Problem Diverticulosis of colon (099655428) Diverticulosis of colon (K57.30) Active confirmed Plan Of Treatment Pending Test Test Name Order Date LIVER PROFILE 10/26/2012 Future Test Test Name Order Date COLONOSCOPY 07/07/2015 COLONOSCOPY 11/18/2021 Insurance Providers Payer Name Payer Address Payer Phone Subscriber Number Group Number Insured Name Patient Relationship to Insured Coverage Start Date Coverage End Date [facility] [address] [facility] [place] [phone] [id number] PEPITO GUAN Self - patient is the insured Medical (General) History Medical History History ICD Code EGD 08-26-2010--normal Negative colonoscopy in 01/14 007 except diverticulosis and internal hemorrhoids Hyperlipidemia Hypertension Denies [place],DM,CVA,Lung disease,renal dise ase Hospitalizations for abdomin al [...]
== END ==
LOC: HO.CARD 14:39
PROVIDERS: PCP Internal Medicine; Visit Provider Internal Medicine Cardiovascular Disease
DX: I42.9 Cardiomyopathy, unspecified (principal)
CPT/HCPCS: 93306; Q9957

== ENCOUNTER → 2024-04-22 14:42 | Outpatient (BNV) | payer OTHER, SELFPAY | PROVIDERS: PCP Internal Medicine; Visit Provider Internal Medicine | DX: I42.2 Other hypertrophic cardiomyopathy (principal); Z95.810 Presence of automatic (implantable) cardiac defibrillator | CPT/HCPCS: 93306 ==

== ENCOUNTER 2024-04-30 14:14 | Outpatient (AMB) | payer OTHER, SELFPAY ==
[2024-04-30 14:24] VITALS: BP 122/80; PULSE 82; BMI 39.3
--- NOTE | 2024-04-30 14:24 | A.OFFVIS_ITS ---
Vital Signs 04/30/24 14:24 Height 6 ft 1 in Weight 297 lb 9.985 oz BMI 39.3 BP 122/80 Blood Pressure Location Lt brachial Position Sitting Pulse 82 Intake Visit Reasons: 6 mth f/up Intake Note: 6 month follow-up with ekg feeling good Distribution Tech Required: No Allergies No Known Allergies Allergy (Verified 02/15/24 13:12) Medication List - Last Reconciled 04/30/24 by Roel Benjamin MD amlodipine 5 mg PO DAILY apixaban (Eliquis) 5 mg PO BID atorvastatin 10 mg PO DAILY coenzyme Q10 (Co Q-10) 400 mg PO DAILY [CPAP Resmed Full face MASK Large Pressure 10 cm humudified air As directed] [CPAP Supplies As directed] dronedarone (Multaq) 400 mg PO BID levothyroxine 150 mcg PO DAILY 90 days losartan 100 mg PO DAILY metoprolol succinate ER 50 mg PO DAILY 90 days pilocarpine HCl 5 mg PO BID 90 days tadalafil (Cialis) 10 mg PO DAILY PRN 30 days tirzepatide 5 mg (0.5 mL) subcut QWEEK 30 days HPI Comments Details: Tim comes for follow-up. He has been doing very well. He was recently started on GLP 1 antagonist and has lost about 15 lb. He feels well. No cardiovascular symptoms. Denies any prolonged palpitation irregular heartbeat. Denies any lightheadedness, syncope, ICD discharge. No worsening shortness of breath, orthopnea, PND. No exertional chest pain. Takes all his medications regularly. Most recent echocardiogram shows low normal LVEF of 54% without any major valvular abnormalities. [facility] Medical History Congestive heart failure LFT elevation Left bundle branch block Cardiomyopathy Annual physical exam Paroxysmal atrial fibrillation Obesity (BMI 30-39.9) Cancer of oropharynx Anxiety Erectile dysfunction Vitamin D deficiency Atrial fibrillation Fatty liver Hypercholesterolemia Hypertension Surgical History History of implantable cardioverter-defibrillator (ICD) insertion History of tonsillectomy Hx of cholecystectomy History of bilateral knee arthroplasty History of cardioversion Hx of knee surgery Family History Father Lung cancer Mother Diabetes Brother Substance abuse Social History Housing: House Alcohol intake: current Alcohol intake frequency: holidays/special occasions only Comment: 2 x a week 2-3 drinks Patient Tobacco Use Status: Never used Tobacco e-Cigarette/Vaping Use: Never Used Second Hand Smoke Exposure: No service: Yes Current occupational status: employed Cognitive needs: No Hearing needs: No Vision needs: Yes Review of Systems Const Denies chills, Denies fatigue, Denies fever(s), Denies frequent falls, Denies weakness, Denies weight gain and Denies weight loss ENT Denies dizziness Card Denies chest pain, Denies leg edema, Denies lightheadedness, Denies palpitations, Denies dyspnea, Denies dyspnea on exertion, Denies orthopnea and Denies other (loss of consciousness) Resp Denies cough, Denies dyspnea and Denies dyspnea on exertion GI Denies hematochezia and Denies change in stool character Musc Denies abnormal gait, Denies muscle weakness, Denies numbness, Denies radiating pain into limb and Denies tingling Neuro Denies abnormal gait, Denies dizziness, Denies frequent falls, Denies numbness, Denies tingling and Denies weakness Endo Denies fatigue and Denies palpitations Physical Exam Vital Signs: Last Vital Signs Pulse 82 04/30/24 14:24 BP 122/80 04/30/24 14:24 BMI result Body Mass Index 39.3 Const General: cooperative, healthy appearing, comfortable and no acute distress Orientation/consciousness: patient oriented x3 Neck Neck: Yes normal visual inspection and Yes no JVD Carotids: normal carotid upstroke Resp Effort & Inspection: normal respiratory effort Auscultation: clear to auscultation bilaterally, no crackles, no rales, no rhonchi and no wheezes Cardio Jugular venous distension: no JVD Rate: regular rate Rhythm: regular rhythm Heart sounds: S1 normal heart sound present, S2 normal heart sound present, no click, no gallops and no murmurs Peripheral pulses: Peripheral pulses 2+ throughout GI Inspection: Yes normal to inspection Neuro General: patient oriented x3 Extrem General: Yes normal to inspection, No no pedal edema and No calf tenderness Office Procedures Cardiac Device Check Cardiac Device Check Details: Biventricular [employer] ICD in place. Programmed in DDDR at 60 beats per minute. Atrial pacing 10% of time. Biventricular pacing 97% of time. Atrial and biventricular capture thresholds adequate. Atrial ventricular sensing is excellent. Pacing and shock lead impedance is stable. Battery life is at 5 to 5.4 years. Two episodes [place]ained [place] [id number] Cardiac Device Check, multi lead implantable defibrillator Procedure code (CPT) selection complete EKG Details: EKG shows normal sinus rhythm with ventricularly paced rhythm with LV pacing with isolated PVCs 62403-[id number], Complete Assessment & Plan Assessment & Plan (1) Cardiomyopathy: Comment: ICD December 2021 Code(s): I42.9 - Cardiomyopathy, unspecified Category: Medical Plan: Cardiomyopathy process related to left bundle-branch block. Clinically doing very well with improved advised LV ejection fraction since neurohormonal modulation Bi V pacing. Clinically no signs or symptoms of heart failure with good functional capacity. Advised to continue with risk factor modification with aggressive blood pressure control as well as CPAP treatment as well as management of rhythm as well as participate in weight loss program. He understands agrees. Continue current neurohormonal modulation with losartan as well as metoprolol. Signs and symptoms of heart failure were discussed. (2) Biventricular ICD (implantable cardioverter-defibrillator) in place: Code(s): Z95.810 - Presence of automatic (implantable) cardiac defibrillator Category: Medical Plan: Biventricular ICD in place, working well. Reprogrammed for adequate functioning. Follow-up remotely for heart failure as well as device functioning. (3) Paroxysmal atrial fibrillation: Code(s): I48.0 - Paroxysmal atrial fibrillation Category: Medical Plan: Paroxysmal atrial fibrillation has done well with rhythm control approach. Continue pursue rhythm control approach. Continue dronedarone therapy which has helped him significantly. Continue full oral anticoagulation, currently on Eliquis 5 mg b.i.d.. Semi annual renal function test should be pursued. Avoidance of stimulants was discussed. Continue CPAP therapy. Continue participate weight loss program. Will follow up in the clinic in 6 months time, sooner p.r.n.. Thank you for allowing me to partake in his care Coding Level of Care Code Est Pt Level 4 (33391) Complex EM visit Add On G2211 Diagnoses Cardiomyopathy I42.9 Biventricular ICD (implantable cardioverter-defibrillator) in place Z95.810 Paroxysmal atrial fibrillation I48.0 CPT Codes Cardiac Device Check - Cardiac Device 6: 03403-YO Cardiac Device Check, multi lead implantable defibrillator ([id number]) EKG - CPT: 15588-Rgjrjlaestmuekdzp, Complete ([id number])
== END 2024-04-30 15:03 | disposition home or self-care (01) ==
PROVIDERS: PCP Internal Medicine; Visit Provider Internal Medicine Cardiovascular Disease
DX: I42.9 Cardiomyopathy, unspecified (principal); Z95.810 Presence of automatic (implantable) cardiac defibrillator; I48.0 Paroxysmal atrial fibrillation
CPT/HCPCS: 93010; 93284; 99214

== ENCOUNTER → 2024-04-30 14:14 | Outpatient (BNVA) | payer OTHER, SELFPAY | PROVIDERS: PCP Internal Medicine; Visit Provider Internal Medicine Cardiovascular Disease | DX: I42.9 Cardiomyopathy, unspecified (principal); I48.0 Paroxysmal atrial fibrillation; Z45.02 Encounter for adjustment and management of automatic implantable cardiac defibrillator | CPT/HCPCS: 93005 ==

== ENCOUNTER 2024-05-21 14:12 | Outpatient (AMB) | payer OTHER, SELFPAY ==
[2024-05-21 14:21] VITALS: BP 128/74; PULSE 81; RESP 18; O2SAT 98; BMI 39.0
--- NOTE | 2024-05-21 14:21 | MHC.PC.OV ---
Vital Signs 05/21/24 14:21 Height 6 ft 1 in Weight 296 lb BMI 39.0 BP 128/74 Blood Pressure Location Lt brachial Position Sitting Respiration 18 Pulse 81 Pulse Source Pulse Oximeter Pulse Oximetry (%) 98 Oxygen Delivery Method Room Air Intake Visit Reasons: DM Air Cargo Agent Required: No Accompanied by: Self / Same As Patient Allergies No Known Allergies Allergy (Verified 05/21/24 14:29) Tobacco use date assessed: 05/21/24 Fall risk assessment: No Falls in past year Last assessed Fall Risk: 05/21/24 Dental Screening Dental Screen Date: 05/21/24 Did you have a dental visit in the last 12 months?: Yes Did you have a dental problem in the last 6 months where you did not have access to dental care?: No Was dental information given to patient?: Patient has dentist [facility] Medical History Congestive heart failure LFT elevation Left bundle branch block Cardiomyopathy Annual physical exam Paroxysmal atrial fibrillation Obesity (BMI 30-39.9) Cancer of oropharynx Anxiety Erectile dysfunction Vitamin D deficiency Atrial fibrillation Fatty liver Hypercholesterolemia Hypertension Surgical History History of implantable cardioverter-defibrillator (ICD) insertion History of tonsillectomy Hx of cholecystectomy History of bilateral knee arthroplasty History of cardioversion Hx of knee surgery Family History Father Lung cancer Mother Diabetes Brother Substance abuse Social History Housing: House Alcohol intake: current Alcohol intake frequency: holidays/special occasions only Comment: 2 x a week 2-3 drinks Patient Tobacco Use Status: Never used Tobacco e-Cigarette/Vaping Use: Never Used Second Hand Smoke Exposure: No service: Yes Current occupational status: employed Cognitive needs: No Hearing needs: No Vision needs: No Questionnaire PHQ-9 Over the last 2 weeks, how often have you been bothered by any of the following problems? 1. Little interest or pleasure in doing things: not at all 2. Feeling down, depressed, or hopeless: not at all 3. Trouble falling or staying asleep, or sleeping too much: not at all 4. Feeling tired or having little energy: not at all 5. Poor appetite or overeating: not at all 6. Feeling bad about yourself - or that you are a failure or have let yourself or your family down: not at all 7. Trouble concentrating on things, such as reading the newspaper or watching television: not at all 8. Moving or speaking so slowly that other people could have noticed. Or the opposite - being so fidgety or restless that you have been moving around a lot more than usual: not at all 9. Thoughts that you would be better off or of hurting yourself in some way: not at all Total score: 0 Depression Screening Interpretation: Negative Depression Screening Done: Yes 92079 - PHQ-9 Billing: Yes Source: Developed by Drs. Chava Lynch, Leslie Menard, Brandon Bell and colleagues, with an educational sheridan from [employer]. Thrive Questionnaire Date Thrive assessed: 05/21/24 I am a: Patient What is your living situation today?: I have a steady place to live Within the past 12 months, did the food you bought not last and you didn't have the money to get more?: Never true Within the past 12 months, did you worry whether your food would run out before you got money to buy more?: Never true Do you have trouble paying for medicines?: No Do you have trouble getting transportation to medical appointments?: No Do you have trouble paying your heating and electricity bill?: No Do you have trouble taking care of your child, family member or friend?: No Do you have trouble with day-to-day activities such as bathing, preparing meals, shopping, managing finances, etc.?: No Are you currently unemployed and looking for a job?: No Are you interested in more education?: No Please select the resources that you would like help with: None Currently or been in a relationship where the following occur: No concerns reported THRIVE Score: 0 AUDIT C Alcohol Use Questionnaire (AUDIT-C) 1. How often do you have a drink containing alcohol?: 2-3 times a week 2. How many drinks containing alcohol do you have on a typical day when you are drinking?: 1 or 2 3. How often do you have six or more drinks on one occasion?: Never Total Score: 3 Score Reviewed/Action Taken: Yes GABRIELA-7 AMB Questionnaire GABRIELA-7 Date GABRIELA - 7 assessed: 05/21/24 Feeling nervous, anxious, or on edge: 0 = Not at all Not being able to stop or control worryin = Not at all Worrying too much about different things: 0 = Not at all Trouble relaxin = Not at all Being so restless that it is hard to sit still: 0 = Not at all Becoming easily annoyed or irritable: 0 = Not at all Feeling afraid as if something awful might happen: 0 = Not at all Total GABRIELA-7 score (0-4 normal; 5-9 mild; 10-14 moderate; 15-21 severe): 0 Source: Developed by Drs. Chava Lynch, Leslie Menard, Brandon Bell and colleagues, with an educational sheridan from [employer]. GABRIELA-7 Assessment Billing GABRIELA-7 Assessment Tool: GABRIELA-7 Assessment 55661 Physical exam (Primary Care) Vital Signs: Last Vital Signs Pulse 81 05/21/24 14:21 Resp 18 05/21/24 14:21 BP 128/74 05/21/24 14:21 Pulse Ox 98 05/21/24 14:21 Oxygen Delivery Method Room Air 05/21/24 14:21 BMI result Body Mass Index 39.0 Tobacco/Smoking Status: Tobacco use Status Tobacco use date assessed 05/21/24 05/21/24 14:34 Patient Tobacco Use Status Never used Tobacco 05/21/24 14:22 e-Cigarette/Vaping Use Never Used 05/21/24 14:22 PHQ-9: PHQ-9 Score PHQ-9: Total score 0 05/21/24 14:36 Depression Screening Interpretation: Negative Thrive Assessment: Date of Thrive Assessment Date Thrive assessed 05/21/24 05/21/24 14:34 Currently or been in a relationship where the following occur: No concerns reported Const General: alert; No acute distress Eyes Conjunctivae: conjunctivae normal Resp Auscultation: clear to auscultation bilaterally Cardio Rate: regular rate Rhythm: regular rhythm GI Inspection: Yes normal to inspection Extrem General: Yes normal to inspection and No edema Results AMB Hemoglobin A1c AMB Hemoglobin A1c 5.1 % Last Edit by Concetta Simms CMA on 05/21/24 14:37 Results Reviewed Results Reviewed: Laboratory Last Values Hgb A1c (Clinic) 5.1 % (4.0-6.0) 05/21/24 14:35 Coding Level of Care Code Est Pt Level 4 (89724) Complex EM visit Add On G2211 Diagnoses Type 2 diabetes mellitus with hyperglycemia E11.65 Essential hypertension I10 Hypertension type: essential hypertension Hypercholesterolemia E78.00 Paroxysmal atrial fibrillation I48.0 Obesity (BMI 30-39.9) E66.9 Cardiomyopathy I42.9 SHAR (obstructive sleep apnea) G47.33 Additional Codes GABRIELA-7 Assessment Billing - GABRIELA-7 Assessment Tool: GABRIELA-7 Assessment 51847 ([id number]) PHQ-9 - 41734 - PHQ-9 Billing: Yes ([id number]) Assessment & Plan Assessment & Plan (1) Type 2 diabetes mellitus with hyperglycemia: Code(s): E11.65 - Type 2 diabetes mellitus with hyperglycemia Category: Medical Plan: Decrease the amount of carbohydrate intake, pasta, bread, rice and potatoes are all sugar and that is aside from all the sweet stuff, remember that fruits are good but they are Sweet also. Hemoglobin A1c goal of less than 6.5 patient is on tirzepatide 5 mg once a day (2) Hypertension: Comment: Nuclear stress test July 2019 normal ejection fraction 54% LV dilatation Code(s): I10 - Essential (primary) hypertension Category: Medical Qualifiers: Hypertension type: essential hypertension Qualified Code(s): I10 - Essential (primary) hypertension Plan: Continue with blood pressure medication. Decrease salt intake and exercise metoprolol 50 mg once a day losartan 100 mg once a day and amlodipine 5 mg once a day (3) Hypercholesterolemia: Code(s): E78.00 - Pure hypercholesterolemia, unspecified Category: Medical Plan: Avoid fried foods, chicken skin, eggs, butter margarine, pastries and meat. Be it pork or beef they have a lot of cholesterol LDL goal of less than 70 and triglyceride of less than 150 on atorvastatin 10 mg once a day (4) Paroxysmal atrial fibrillation: Code(s): I48.0 - Paroxysmal atrial fibrillation Category: Medical Plan: Continue with anticoagulation semiannual renal function test and on dronedarone (5) Obesity (BMI 30-39.9): Code(s): E66.9 - Obesity, unspecified Category: Medical Plan: Diet and exercise (6) Cardiomyopathy: Comment: ICD December 2021 Code(s): I42.9 - Cardiomyopathy, unspecified Category: Medical Plan: Recent echocardiogram EF more than 50%. (7) SHAR (obstructive sleep apnea): Code(s): G47.33 - Obstructive sleep apnea (adult) (pediatric) Category: Medical Plan: Continue to use the CPAP every night more than 4 hours a night and benefits from this. Plan History of Present Illness The patient is a 68-year-old male presenting with a follow-up for management of type 2 diabetes mellitus, hypertension, hypercholesterolemia, and atrial fibrillation. He manages his diabetes with dietary measures and weekly therzepidide. His recent A1c was 6.7%, aiming for tighter control. Weight management with this regimen has been effective, though he had symptoms relatable to dietary factors rather than medication. His hypertension, controlled with multiple medications, requires close monitoring with potential adjustments based on weight loss-induced blood pressure reduction. Atrial fibrillation management consists of dronidarone and apixaban, with echocardiograms showing stable cardiac function and no significant valvular issues. Hypercholesterolemia is addressed with atorvastatin, maintaining LDL goals yet managing elevated triglycerides. His commitment to CPAP therapy for sleep apnea remains robust. Thyroid function has shown some variation but remains under control. Recent lab tests indicated mild thrombocytopenia, but overall bloodwork showed stability in metabolic and renal parameters. Health Maintenance - Semiannual renal function tests scheduled. - Thyroid function test planned to accompany blood work for MMR titer. - Routine monitoring via echocardiograms; last done on April 23, 2024, indicating stable cardiac function. - CPAP therapy adherence emphasized for obstructive sleep apnea management. - Lifestyle modifications discussed, including protein intake to prevent muscle loss. - Vaccinations contemplated: COVID booster potentially in the fall; tetanus and measles titers as indicated. - Awaiting podiatry and ophthalmology consultations. Social History - Consistent use of CPAP device reported. - Engages in regular exercise, including biking. - Adjusted dietary intake to manage diabetes and facilitate weight loss. - Manages medication pickups routinely. Review of Systems - Cardiovascular: Denies chest pain or palpitations. - Respiratory: Reports regular use of CPAP. - Gastrointestinal: Reports past gastrointestinal upset; resolved with dietary management. - Musculoskeletal: Reports exercise-induced energy depletion; adjusting protein intake. - Neurological: Denies dizziness or syncope. Physical Exam Results - Labs: Hemoglobin A1c 6.7% (December 2023), TSH 4.12 (December 2023), cholesterol in September 2023: LDL 69 mg/dL, triglycerides 235 mg/dL, blood count showed mild thrombocytopenia. - Imaging: Echocardiogram performed April 23, 2024, EF 54%, moderately increased left ventricular size. - Assessments: Diabetic retinopathy and hypertensive evaluation pending further referral follow-up. Plan Continue current management of diabetes with therzepidide and dietary measures. Regular monitoring of blood pressure is needed due to weight changes, with medication adjustments as necessary. Continue current medications for atrial fibrillation and hypercholesterolemia, and stress lifestyle changes to manage triglyceride levels. Emphasize compliance with CPAP for obstructive sleep apnea. Repeat necessary labs in the coming months, including renal and thyroid tests. Discussed potential for vaccinations in the fall. Follow up with podiatry and ophthalmology appointments as scheduled. Utilize portal communication for medication refills to ensure continuity. Patient was informed and verbally consented to the use of an ambient scribe for clinic note documentation during this visit. Discussion Notes I reviewed the patient?s management plan for diabetes, hypertension, atrial fibrillation, and hypercholesterolemia. We discussed the importance of dietary control and weight management to meet the A1c target of less than 6.5%, as well as regular monitoring of blood pressure with potential medication adjustment. Cardiac status appears stable per recent echocardiogram findings. The patient was informed about continuing atorvastatin therapy while making lifestyle adjustments to address triglycerides. Emphasizing adherence to CPAP use was advised to manage sleep apnea effectively. Immunization benefits were discussed, including the advantages of the COVID booster in the fall and current non-urgency for the tetanus shot. I indicated the importance of communication through the portal for medication refills and follow-up on pending consultations with podiatry and ophthalmology. Patient Instructions - Continue current management for diabetes, hypertension, and cholesterol. - Monitor blood pressure regularly and report any significant changes. - Follow CPAP therapy diligently every night. - Engage in regular physical activity, focus on energy-boosting nutritional intake. - Await notification for follow-up testing, including renal and thyroid tests. - Discuss any prescription needs early via the portal to prevent running out of medications. - Stay updated on vaccinations, including a potential COVID booster in the fall. - Follow through with scheduled podiatry and ophthalmology appointments. Orders: Orders Complete Blood Count Auto Diff 3 Months I48.0 - Paroxysmal atrial fibrillation Vitamin B12 and Folate 3 Months I48.0 - Paroxysmal atrial fibrillation Hemoglobin A1c 3 Months I48.0 - Paroxysmal atrial fibrillation B Type Natriuretic Peptide 3 Months I48.0 - Paroxysmal atrial fibrillation Mumps Virus IgG Antibody Today I48.0 - Paroxysmal atrial fibrillation, Z02.0 - Encounter for examination for admission to [facility] Varicella IgG Antibody Today I48.0 - Paroxysmal atrial fibrillation, Z02.0 - Encounter for examination for admission to [facility] AMB Hemoglobin A1c Today E11.65 - Type 2 diabetes mellitus with hyperglycemia Comprehensive Met. Panel 3 Months I48.0 - Paroxysmal atrial fibrillation Free T4 (Free Thyroxine) 3 Months I48.0 - Paroxysmal atrial fibrillation Lipid Panel 3 Months E78.00 - Pure hypercholesterolemia, unspecified, I48.0 - Paroxysmal atrial fibrillation Microalbumin, Random (w Creat) 3 Months E11.65 - Type 2 diabetes mellitus with hyperglycemia, I48.0 - Paroxysmal atrial fibrillation Creatinine Urine 3 Months E11.65 - Type 2 diabetes mellitus with hyperglycemia, I48.0 - Paroxysmal atrial fibrillation Thyroid Stimulating Hormone 3 Months I48.0 - Paroxysmal atrial fibrillation Rubella IgG Antibody Today I48.0 - Paroxysmal atrial fibrillation, Z02.0 - Encounter for examination [facility] to [facility] Rubeola IgG (Measles) Today I48.0 - Paroxysmal atrial fibrillation, Z02.0 - Encounter for examination for admission to [facility]
--- OUTSIDE RECORDS SUMMARY | 2024-05-21 17:20 | XMS_ITS | Patient Health Record ---
Author Organization [facility] Address [address] [place] [address] Care Team Providers Care Post Acute Care Nurse Name Role Phone Po Mario COSTA Primary Care Provider Chava Brennan [phone] Reason For Referral No Information Medications Medication [...] W/U Status Risk Notes Problem Rectal bleeding (78478643) Rectal bleeding (K62.5) Active confirmed Problem 586617725 Fatty liver (K76.0) Active confirmed Problem 22463417 Heme positive stool (R19.5) Active confirmed Problem Diverticulosis of colon (800333892) Diverticulosis of colon (K57.30) Active confirmed Plan Of Treatment Pending Test Test Name Order Date LIVER PROFILE 10/26/2012 Future Test Test Name Order Date COLONOSCOPY 07/07/2015 COLONOSCOPY 11/18/2021 Insurance Providers Payer Name Payer Address Payer Phone Subscriber Number Group Number Insured Name Patient Relationship to Insured Coverage Start Date Coverage End Date [facility] [address] [facility] [place] [id number] PEPITO GUAN Self - patient is the [...] Date(Month/Year) Knee surgery Vasectomy [facility] by Dr. Vásquze in 06/2014-had an intraop liver bx as above Bilateral knee replacement 2016 and August Probable pacemaker - Dr. Benjamin-for later in 2021
== END 2024-05-21 14:57 | disposition home or self-care (01) ==
LOC: HO.HMCH 14:12
PROVIDERS: PCP Internal Medicine; Visit Provider Internal Medicine
DX: E11.65 Type 2 diabetes mellitus with hyperglycemia (principal); I48.0 Paroxysmal atrial fibrillation; Z68.39 Body mass index [BMI] 39.0-39.9, adult; E66.9 Obesity, unspecified; I42.9 Cardiomyopathy, unspecified; I10 Essential (primary) hypertension; E78.00 Pure hypercholesterolemia, unspecified; G47.33 Obstructive sleep apnea (adult) (pediatric)

== ENCOUNTER → 2024-05-21 14:12 | Outpatient (BNVA) | payer OTHER, SELFPAY | PROVIDERS: PCP Internal Medicine; Visit Provider Internal Medicine | DX: E11.65 Type 2 diabetes mellitus with hyperglycemia (principal); I10 Essential (primary) hypertension; E78.00 Pure hypercholesterolemia, unspecified; I48.0 Paroxysmal atrial fibrillation; E66.9 Obesity, unspecified; Z68.39 Body mass index [BMI] 39.0-39.9, adult; I42.9 Cardiomyopathy, unspecified; G47.33 Obstructive sleep apnea (adult) (pediatric); Z79.01 Long term (current) use of anticoagulants; Z79.899 Other long term (current) drug therapy | CPT/HCPCS: 83036; 96127 ==

== ENCOUNTER 2024-06-10 06:09 | Outpatient (REF) | payer OTHER, SELFPAY ==
[2024-06-10 08:06] LABS: Free T4 (Free Thyroxine) 1.11 ng/dL (0.71-1.85); Thyroid Stimulating Hormone 4.05 uIU/mL (0.32-4.0)
== END 2024-06-10 06:10 | disposition home or self-care (01) ==
LOC: HO.LAB 06:09
PROVIDERS: PCP Internal Medicine; Visit Provider Internal Medicine
DX: E03.9 Hypothyroidism, unspecified (principal); Z02.0 Encounter for examination for admission to educational institution; I48.0 Paroxysmal atrial fibrillation
CPT/HCPCS: 36415; 84439; 84443; 86735; 86762; 86765; 86787

== ENCOUNTER → 2024-07-09 23:59 | Outpatient (BNV) | payer OTHER, SELFPAY ==
--- NOTE | 2024-07-11 14:52 | A.OFFVIS_ITS ---
Intake Visit Reasons: Remote ICD monitoring- [facility] Allergies No Known Allergies Allergy (Verified 05/21/24 14:29) [facility] Medical History Congestive heart failure LFT elevation Left bundle branch block Cardiomyopathy Annual physical exam Paroxysmal atrial fibrillation Obesity (BMI 30-39.9) Cancer of oropharynx Anxiety Erectile dysfunction Vitamin D deficiency Atrial fibrillation Fatty liver Hypercholesterolemia Hypertension Surgical History History of implantable cardioverter-defibrillator (ICD) insertion History of tonsillectomy Hx of cholecystectomy History of bilateral knee arthroplasty History of cardioversion Hx of knee surgery Family History Father Lung cancer Mother Diabetes Brother Substance abuse Social History Housing: House Alcohol intake: current Alcohol intake frequency: holidays/special occasions only Comment: 2 x a week 2-3 drinks Patient Tobacco Use Status: Never used Tobacco e-Cigarette/Vaping Use: Never Used Second Hand Smoke Exposure: No service: Yes Current occupational status: employed Cognitive needs: No Hearing needs: No Vision needs: No Office Procedures Cardiac Device Check Cardiac Device Check Details: remote ICD report generated 07/09/2024. ICD function is adequate. Bi V pacing 97% of the time [id number] Cardiac Interrogation, implant defibrillator w/interim Procedure code (CPT) selection complete Assessment & Plan Assessment & Plan (1) Biventricular ICD (implantable cardioverter-defibrillator) in place: Code(s): Z95.810 - Presence of automatic (implantable) cardiac defibrillator Category: Medical Plan: see above Coding Level of Care Code Procedure Only Diagnoses Biventricular ICD (implantable cardioverter-defibrillator) in place Z95.810 CPT Codes Cardiac Device Check - Cardiac Device 13: [id number] Cardiac Interrogation, implant defibrillator w/interim ([id number])
== END ==
PROVIDERS: PCP Internal Medicine; Visit Provider Internal Medicine Cardiovascular Disease
DX: Z45.02 Encounter for adjustment and management of automatic implantable cardiac defibrillator (principal)
CPT/HCPCS: 93295

== ENCOUNTER 2024-08-27 13:21 | Outpatient (REF) | payer OTHER, SELFPAY ==
--- NOTE | ~2024-08-27 | XR_ITS ---
EXAMINATION: XR CHEST CLINICAL INFORMATION: I42.9 - Cardiomyopathy, unspecified COMPARISON: January 31, 2023. TECHNIQUE: Frontal view of the chest was obtained. FINDINGS: Prominence of the interstitial markings in the perihilar regions. No gross consolidation pleural fissure pneumothorax. No hyperinflation. Cardia mediastinal silhouette size is normal. Metallic electrode leads in the right heart chambers in the coronary sinus. There is a metallic pacemaker reservoir in the left upper hemithorax. Multilevel thoracolumbar spondylosis. XR/XR chest 1V IMPRESSION: No acute airspace disease. No cardiomegaly. Electronically signed by: Bradley Benoit MD 08/27/2024 01:36 PM EDT
== END 2024-08-27 13:22 | disposition home or self-care (01) ==
LOC: HO.XRAY 13:21
PROVIDERS: PCP Internal Medicine; Visit Provider Internal Medicine
DX: I42.9 Cardiomyopathy, unspecified (principal)
CPT/HCPCS: 71045

== ENCOUNTER → 2024-08-27 13:25 | Outpatient (BNV) | payer OTHER, SELFPAY | PROVIDERS: PCP Internal Medicine; Visit Provider Radiology Diagnostic Radiology | DX: M47.815 Spondylosis without myelopathy or radiculopathy, thoracolumbar region (principal) | CPT/HCPCS: 71045 ==

== ENCOUNTER 2024-09-18 10:06 | Outpatient (REF) | payer OTHER, SELFPAY ==
[2024-09-18 10:18] LABS: MANUAL DIFF FLAG NO
--- OUTSIDE RECORDS SUMMARY | 2024-09-18 10:38 | XMS_ITS | Clinical Summary ---
Author Organization [address] [facility] Address [address] [place] [address] Phone Care Team Providers Care Bench Molder Name Role Phone NelsonRic Primary Care Provider [phone] Social History Tobacco Use Types Packs/Day Years Used Date Smoking Tobacco: Never Assessed Sex and Gender Information Value Date Recorded Sex Assigned at Not on file Legal Sex Male 4:09 PM EST Gender Identity Not on file Sexual Orientation Not on file Plan of Treatment Upcoming Encounters Date Type Department Care Team ([facility] Contact Info) Description 11/28/2024 9:15 AM EDT Office Visit Orthopedic Surgery [place] [id number] [phone] Ten Clements, DPM [address] [address] Health Maintenance Due Date Last Done Comments DTaP,Tdap,and Td Vaccines (1 - Tdap) 1974 Pneumococcal Vaccine: 50+ Ye ars (1 of 1 - PCV) 12/10/2007 Zoster Vaccines (1 of 2) 12/10/2007 COVID-19 Vaccine (1 - 2023-2 5 season) 2023 Depression Screening 02/14/2024 Abdominal Aortic Aneurysm (A AA) Screen 08/30/2024 Cholesterol Screening (Lipid Panel) 08/30/2024 Colorectal Cancer Screening: Colonoscopy 08/30/2024 Falls Risk Assessment 08/30/2024 Hepatitis C Screening 08/30/2024 Social Influencers of Health Screening 08/30/2024 Influenza Vaccine (#1) 2024 RSV Immunization Adult Patie nts (1 - 1-dose 75+ series) 2032 HIB Vaccines Aged Out No longer eligi ble based on patient's age to complete this topic HPV Vaccines Aged Out No longer eligi ble based on patient's age to complete this topic Hepatitis A Vaccines Aged Out No long er eligible based on patient's age to complete this topic Hepatitis B Vaccines Aged Out No long er eligible based on patient's age to complete this topic IPV Vaccines Aged Out No longer eligi ble based on patient's age to complete this topic MMR Vaccines Aged Out No longer eligi ble based on patient's age to complete this topic Meningococcal ACWY Vaccine Aged Out N o longer eligible based on patient's age to complete this topic Meningococcal B Vaccine Aged Out No l onger eligible based on patient's age to complete this topic RSV Immunization Patients Un viond 20 months Aged Out No longer eligible b ased on patient's age to complete this topic Varicella Vaccines Aged Out No longer eligible based on patient's age to complete this topic Insurance MEDICARE [facility] Care Teams Bench Molder Relationship Specialty Start Date End Date Ric Nelson FNP [address] [place] [address] [place] [address] PCP - General Family Medicine 08/29/24
--- OUTSIDE RECORDS SUMMARY | 2024-09-18 10:38 | XMS_ITS | Patient Health Record ---
Author Organization [facility] Address [address] [place] [address] Care Team Providers Care Pipe Fitter Ammonia Name Role Phone Po Mario COSTA Primary Care Provider Chava Brennan [phone] Reason For Referral No Information Medications Medication [...] W/U Status Risk Notes Problem Rectal bleeding (72443436) Rectal bleeding (K62.5) Active confirmed Problem 771288319 Fatty liver (K76.0) Active confirmed Problem 92689414 Heme positive stool (R19.5) Active confirmed Problem Diverticulosis of colon (967253239) Diverticulosis of colon (K57.30) Active confirmed Plan Of Treatment Pending Test Test Name Order Date LIVER PROFILE 10/26/2012 Future Test Test Name Order Date COLONOSCOPY 07/07/2015 COLONOSCOPY 11/18/2021 Insurance Providers Payer Name Payer Address Payer Phone Subscriber Number Group Number Insured Name Patient Relationship to Insured Coverage Start Date Coverage End Date [facility] [address] [facility] [place] [id number] PEPITO GUAN Self - patient is the insured Medical (General) History Medical History History ICD Code EGD 08-26-2010--normal Negative colonoscopy in 01/14 007 except diverticulosis and internal hemorrhoids Hyperlipidemia Hypertension Denies VT,DM,CVA,Lung disease,renal dise ase Hospitalizations for abdomin al [...]
[2024-09-18 10:46] LABS: Hematocrit 39.6 % (42.0-52.0); Hemoglobin 13.8 g/dl (14.0-18.0); Imm Gran Abs Auto 0.02 X10*3/uL (0.00-0.03); Imm Gran Pct Auto 0.4 % (0.0-0.4); Lymphocytes Absolute Auto 1.3 X10*3/uL (1.2-4.9); Mean Corpuscular HGB Conc 34.8 g/dl (31.0-36.0); Mean Corpuscular Hemoglobin 31.9 pg (27.0-33.0); Mean Corpuscular Volume 91.7 fL (80.0-98.0); NRBC Abs Auto 0.000 X10*3/uL (0.0-0.012); NRBC Pct Auto 0.0 /100WBC (0.0-0.2); Platelet Count 160 X10*3/uL (160-400); Red Blood Count 4.32 X10*6/uL (4.60-5.80); White Blood Count 5.5 X10*3/uL (4.8-10.8)
[2024-09-18 10:54] LABS: Hemoglobin A1C 116.2611 umol/L; Total Hemoglobin (HGBA1C) 3629.4852 umol/L
[2024-09-18 11:19] LABS: B Type Natriuretic Peptide 17 pg/mL (<100)
[2024-09-18 11:38] LABS: Alanine Aminotransferase 39 U/L (0-40); Albumin Level 4.5 g/dL (3.5-5.0); Alkaline Phosphatase 64 U/L (39-117); Anion Gap 14 (12-20); Aspartate Amino Transferase 30 U/L (5-37); Blood Urea Nitrogen 17 mg/dL (9-16); Calcium 9.2 mg/dL (8.4-10.2); Carbon Dioxide 23 mmol/L (22-29); Chloride 108 mmol/L (96-108); Cholesterol 142 mg/dL (<200); Estimated Glomerular Filt Rate > 60; HDL Cholesterol 47 mg/dL (>40); Potassium 4.5 mmol/L (3.3-5.1); Sodium 140 mmol/L (135-145); Total Protein 7.0 g/dL (6.5-8.0); Triglycerides 119 mg/dL (<150)
[2024-09-18 11:45] LABS: Free T4 (Free Thyroxine) 1.24 ng/dL (0.71-1.85); Thyroid Stimulating Hormone 0.62 uIU/mL (0.32-4.0)
[2024-09-18 12:03] LABS: Folate 14.2 ng/mL (> or = 4.0); Vitamin B12 442 pg/mL (200-900)
[2024-09-18 12:26] LABS: Microalbum/Creatinine Ratio Ur 4.8 ug/mg cr (<30)
== END 2024-09-18 10:07 | disposition home or self-care (01) ==
LOC: HO.LAB 10:06
PROVIDERS: PCP Internal Medicine; Visit Provider Internal Medicine
DX: I48.0 Paroxysmal atrial fibrillation (principal); E11.65 Type 2 diabetes mellitus with hyperglycemia; I42.9 Cardiomyopathy, unspecified; E03.9 Hypothyroidism, unspecified; E78.00 Pure hypercholesterolemia, unspecified
CPT/HCPCS: 36415; 80053; 80061; 82043; 82570; 82607; 82746; 83036; 83880; 84439; 84443; 85025

== ENCOUNTER 2024-09-24 14:06 | Outpatient (AMB) | payer OTHER, SELFPAY ==
--- NOTE | 2024-09-24 14:12 | A.OFFPC_ITS ---
Vital Signs 09/24/24 14:13 Height 6 ft 1 in Weight 285 lb 2 oz BMI 37.6 BP 130/62 Blood Pressure Location Lt brachial Position Sitting Pulse 86 Pulse Source Pulse Oximeter Temp 97.3 F Temp Source Temporal Artery Scan Pulse Oximetry (%) 97 Oxygen Delivery Method Room Air Intake Visit Reasons: DM , obesity Intake Note: Patient is here to follow up on DM, Obesity. Flexo Folder Gluer Operator Required: No First Aid Teacher: Not Required per policy Accompanied by: Self / Same As Patient Allergies No Known Allergies Allergy (Verified 09/24/24 14:13) Medication List - Last Reconciled 09/24/24 by Mario Dickerson MD amlodipine 5 mg PO DAILY apixaban (Eliquis) 5 mg PO BID atorvastatin 10 mg PO DAILY coenzyme Q10 (Co Q-10) 400 mg PO DAILY [CPAP Resmed Full face MASK Large Pressure 10 cm humudified air As directed] [CPAP Supplies As directed] dronedarone (Multaq) 400 mg PO BID levothyroxine 175 mcg PO DAILY 90 days losartan 100 mg PO DAILY metoprolol succinate ER 50 mg PO DAILY 90 days pilocarpine HCl 5 mg PO BID 90 days tadalafil (Cialis) 10 mg PO DAILY PRN 30 days tirzepatide 7.5 mg (0.5 mL) subcut QWEEK 90 days Tobacco use date assessed: 09/24/24 Fall risk assessment: No Falls in past year Last assessed Fall Risk: 09/24/24 Dental Screening Dental Screen Date: 05/21/24 [facility] Medical History Congestive heart failure LFT elevation Left bundle branch block Cardiomyopathy Annual physical exam Paroxysmal atrial fibrillation Obesity (BMI 30-39.9) Cancer of oropharynx Anxiety Erectile dysfunction Vitamin D deficiency Atrial fibrillation Fatty liver Hypercholesterolemia Hypertension Surgical History History of implantable cardioverter-defibrillator (ICD) insertion History of tonsillectomy Hx of cholecystectomy History of bilateral knee arthroplasty History of cardioversion Hx of knee surgery Family History Father Lung cancer Mother Diabetes Brother Substance abuse Social History Housing: House Alcohol intake: current Alcohol intake frequency: holidays/special occasions only Comment: 2 x a week 2-3 drinks Patient Tobacco Use Status: Never used Tobacco e-Cigarette/Vaping Use: Never Used Second Hand Smoke Exposure: No service: Yes Current occupational status: employed Cognitive needs: No Hearing needs: No Vision needs: No Questionnaire Thrive Questionnaire Date Thrive assessed: 02/15/24 I am a: Patient What is your living situation today?: I have a steady place to live Within the past 12 months, did the food you bought not last and you didn't have the money to get more?: Never true Within the past 12 months, did you worry whether your food would run out before you got money to buy more?: Never true Do you have trouble paying for medicines?: No Do you have trouble getting transportation to medical appointments?: No Do you have trouble paying your heating and electricity bill?: No Do you have trouble taking care of your child, family member or friend?: No Do you have trouble with day-to-day activities such as bathing, preparing meals, shopping, managing finances, etc.?: No Are you currently unemployed and looking for a job?: No Are you interested in more education?: No Please select the resources that you would like help with: None Currently or been in a relationship where the following occur: No concerns reported THRIVE Score: 0 GABRIELA-7 AMB Questionnaire GABRIELA-7 Date GABRIELA - 7 assessed: 05/21/24 Source: Developed by Drs. Chava Lynch, Leslie Menard, Brandon Bell and colleagues, with an educational sheridan from [employer] Physical exam (Primary Care) Vital Signs: Last Vital Signs Temp 97.3 F 09/24/24 14:13 Pulse 86 09/24/24 14:13 BP 130/62 09/24/24 14:13 Pulse Ox 97 09/24/24 14:13 Oxygen Delivery Method Room Air 09/24/24 14:13 BMI result Body Mass Index 37.6 Tobacco/Smoking Status: Tobacco use Status Tobacco use date assessed 09/24/24 09/24/24 14:19 Patient Tobacco Use Status Never used Tobacco 09/24/24 14:19 e-Cigarette/Vaping Use Never Used 09/24/24 14:19 Thrive Assessment: Date of Thrive Assessment Date Thrive assessed 02/15/24 09/24/24 14:19 Currently or been in a relationship where the following occur: No concerns reported Const General: alert; No acute distress Eyes Conjunctivae: conjunctivae normal Resp Auscultation: clear to auscultation bilaterally Cardio Rate: regular rate Rhythm: regular rhythm GI Inspection: Yes normal to inspection Extrem General: Yes normal to inspection and No edema Coding Level of Care Code Est Pt Level 4 (03369) Complex EM visit Add On G2211 Diagnoses Cardiomyopathy I42.9 Essential hypertension I10 Hypertension type: essential hypertension Hypercholesterolemia E78.00 Paroxysmal atrial fibrillation I48.0 Type 2 diabetes mellitus with hyperglycemia E11.65 Hypothyroid E03.9 Obesity (BMI 30-39.9) E66.9 Cancer of oropharynx C10.9 SHAR (obstructive sleep apnea) G47.33 Assessment & Plan Assessment & Plan (1) Cardiomyopathy: Comment: ICD December 2021 Code(s): I42.9 - Cardiomyopathy, unspecified Category: Medical Plan: Continuing with ICD checks with Cardiology (2) Hypertension: Comment: Nuclear stress test July 2019 normal ejection fraction 54% LV dilatation Code(s): I10 - Essential (primary) hypertension Category: Medical Qualifiers: Hypertension type: essential hypertension Qualified Code(s): I10 - Essential (primary) hypertension Plan: Continue with blood pressure medication. Decrease salt intake and exercise on amlodipine 5 mg once a day losartan 100 mg once a day metoprolol succinate 50 mg once a day (3) Hypercholesterolemia: Code(s): E78.00 - Pure hypercholesterolemia, unspecified Category: Medical Plan: Avoid fried foods, chicken skin, eggs, butter margarine, pastries and meat. Be it pork or beef they have a lot of cholesterol LDL goal of less than 70 and triglyceride of less than 150 patient is on atorvastatin 10 mg once a day (4) Paroxysmal atrial fibrillation: Code(s): I48.0 - Paroxysmal atrial fibrillation Category: Medical Plan: Continuing with anticoagulation with Eliquis September 2024 last blood work on Multaq (5) Type 2 diabetes mellitus with hyperglycemia: Code(s): E11.65 - Type 2 diabetes mellitus with hyperglycemia Category: Medical Plan: Decrease the amount of carbohydrate intake, pasta, bread, rice and potatoes are all sugar and that is aside from all the sweet stuff, remember that fruits are good but they are Sweet also. Hemoglobin A1c goal of less than 6.5 diet controlled patient is also on tirzepatide (6) Hypothyroid: Code(s): E03.9 - Hypothyroidism, unspecified Category: Medical Plan: Continue with thyroid medication (7) Obesity (BMI 30-39.9): Code(s): E66.9 - Obesity, unspecified Category: Medical Plan: Diet and exercise (8) Cancer of oropharynx: Comment: Dr. Sharp November 2018 Code(s): C10.9 - Malignant neoplasm of oropharynx, unspecified Category: Medical Plan: Continue to monitor (9) SHAR (obstructive sleep apnea): Code(s): G47.33 - Obstructive sleep apnea (adult) (pediatric) Category: Medical Plan: Continue to use the CPAP more than 4 hours a night and benefits from this Plan History of Present Illness The patient is a 68-year-old male presenting for a follow-up visit. The patient has a history of obesity, with a recent weight loss of 11 pounds noted. He has been diagnosed with diabetes mellitus, hypertension, and hypercholesterolemia. The patient also has a history of oropharyngeal cancer diagnosed in 2018, for which he has been under surveillance. The patient has atrial fibrillation and cardiomyopathy, for which he has an implantable cardioverter-defibrillator (ICD) and follows up with cardiology for device checks. His last echocardiogram in April 2024 showed an ejection fraction of 54% with no valvular pathology. He has hypothyroidism and is on thyroid medication, which he takes regularly. The patient also has obstructive sleep apnea and uses a CPAP machine nightly, reporting benefits from its use. The patient had a chest X-ray in August 2024, which showed no cardiomegaly or acute airspace disease. His last blood work in September 2024 indicated mild anemia with a hemoglobin of 13.8, normal platelet count, and normal renal function. Liver function tests were normal, and LDL cholesterol was 72 mg/dL. The patient is compliant with his medication regimen, including amlodipine, losartan, metoprolol, atorvastatin, and Eliquis. He is also on terzepatide for diabetes management, with a goal to maintain hemoglobin A1c below 6.5%. Preventative care measures include an overdue colonoscopy since 2015 and a recent shingles vaccination. Flu and COVID vaccinations are recommended for November. Health Maintenance - Colonoscopy overdue since 2015 - Shingles vaccination administered - Flu and COVID vaccinations recommended for November Social History - Exercise: Patient engages in walking and plans to set up a home exercise program. - Sleep: Reports using CPAP nightly and experiences frequent nocturnal awakenings. - Weight Management: Recent weight loss of 11 pounds, attributed to dietary changes and medication. Review of Systems - General: Reports recent weight loss of 11 pounds. - Cardiovascular: Denies chest pain, reports regular cardiology follow-ups for ICD checks. - Respiratory: Reports using CPAP nightly, denies dyspnea. - Endocrine: Reports regular thyroid medication use, denies symptoms of hypothyroidism. - Hematologic: Reports mild anemia, denies symptoms of bleeding or bruising. Physical Exam Results - Labs: Mild anemia with hemoglobin 13.8, normal platelet count, normal renal function, LDL cholesterol 72 mg/dL. - Imaging: Chest X-ray in August 2024 showed no cardiomegaly or acute airspace disease. - Echocardiogram: April 2024 showed ejection fraction of 54%, no valvular pathology. Plan The patient will continue with his current medication regimen, including amlodipine, losartan, metoprolol, atorvastatin, and Eliquis, to manage hypertension, hypercholesterolemia, and atrial fibrillation. He will also continue terzepatide for diabetes management, aiming to maintain hemoglobin A1c below 6.5%. The patient is advised to continue using the CPAP machine nightly for obstructive sleep apnea and to monitor his thyroid function regularly. Preventative care measures include scheduling a colonoscopy, receiving flu and COVID vaccinations in November, and maintaining regular follow-ups with cardiology for ICD checks. The patient is encouraged to continue his weight management efforts through diet and exercise, and to follow up with his healthcare provider in three months for ongoing monitoring and management of his conditions. Patient was informed and verbally consented to the use of an ambient scribe for clinic note documentation during this visit. Discussion Notes During the visit, I discussed with the patient the importance of continuing his current medication regimen to manage his chronic conditions, including hypertension, diabetes, and atrial fibrillation. We reviewed the benefits of using the CPAP machine for obstructive sleep apnea and the need for regular thyroid function monitoring. I emphasized the importance of preventative care, including scheduling a colonoscopy and receiving flu and COVID vaccinations in November. The patient was advised to maintain regular follow-ups with cardiology for ICD checks and to continue his weight management efforts through diet and exercise. Patient Instructions - Continue taking all prescribed medications as directed. - Use the CPAP machine every night for at least 4 hours. - Schedule a colonoscopy as soon as possible. - Get flu and COVID vaccinations in November. - Maintain regular follow-ups with your mailroom messenger for ICD checks. - Continue with diet and exercise to manage weight. - Follow up with your healthcare provider in three months. Medications: Changed From tirzepatide for 4 weeks 7.5 mg (0.5 mL) subcut QWEEK 90 days 6.5 mL 1RF E11.65 - Type 2 diabetes mellitus with hyperglycemia, E66.01 - Morbid (severe) obesity due to excess calories To tirzepatide for 4 weeks 10 mg (0.5 mL) subcut QWEEK 6.5 mL 2RF 90 days E11.65 - Type 2 diabetes mellitus with hyperglycemia, E66.01 - Morbid (severe) obesity due to excess calories
[2024-09-24 14:13] VITALS: BP 130/62; PULSE 86; TEMP 36.3; O2SAT 97; BMI 37.6
--- OUTSIDE RECORDS SUMMARY | 2024-09-24 15:06 | XMS_ITS | Patient Health Record ---
Author Organization [facility] Address [address] [place] [address] Care Team Providers Care Acid Bath Mixer Name Role Phone Po Mario COSTA Primary Care Provider Chava Brennan [phone] Reason For Referral No Information Medications Medication [...] W/U Status Risk Notes Problem Rectal bleeding (23159883) Rectal bleeding (K62.5) Active confirmed Problem [id number] Fatty liver (K76.0) Active confirmed Problem [id number] Heme positive stool (R19.5) Active confirmed Problem Diverticulosis of colon (402798410) Diverticulosis of colon (K57.30) Active confirmed Plan Of Treatment Pending Test Test Name Order Date LIVER PROFILE 10/26/2012 Future Test Test Name Order Date COLONOSCOPY 07/07/2015 COLONOSCOPY 11/18/2021 Insurance Providers Payer Name Payer Address Payer Phone Subscriber Number Group Number Insured Name Patient Relationship to Insured Coverage Start Date Coverage End Date [facility] [address] [facility] [place] [id number] PEPITO GUAN Self - patient is the insured Medical (General) History Medical History History ICD Code EGD 08-26-2010--normal Negative colonoscopy in 01/14 007 except diverticulosis and internal hemorrhoids Hyperlipidemia Hypertension Denies VA,DM,CVA,Lung disease,renal dise ase Hospitalizations for abdomin al [...]
--- OUTSIDE RECORDS SUMMARY | 2024-09-24 15:06 | XMS_ITS | Clinical Summary ---
Author Organization [facility] Address [address] [place] [address] Phone Care Team Providers Care Consumer Credit Counselor Name Role Phone NelsonRic Primary Care Provider [phone] Social History Tobacco Use Types Packs/Day Years [...] 9:15 AM EDT Office Visit Orthopedic Surgery [place] [phone] [phone] Ten Clements, DPM [address] [address] Health Maintenance Due Date Last Done Comments [...] complete this topic RSV Immunization Patients Un vinod 20 months Aged Out No longer eligible b ased on patient's age to complete this topic Varicella Vaccines Aged Out No longer eligible based on patient's age to complete this topic Insurance MEDICARE [facility] Care Teams Consumer Credit Counselor Relationship Specialty Start Date End Date Ric Nelson FNP [address] [place] [address] [place] [address] PCP - General Family Medicine 08/29/24
== END 2024-09-24 14:52 | disposition home or self-care (01) ==
LOC: HO.HMCH 14:07
PROVIDERS: PCP Internal Medicine; Visit Provider Internal Medicine
DX: I42.9 Cardiomyopathy, unspecified (principal); I48.0 Paroxysmal atrial fibrillation; E11.65 Type 2 diabetes mellitus with hyperglycemia; C10.9 Malignant neoplasm of oropharynx, unspecified; E66.9 Obesity, unspecified; Z68.37 Body mass index [BMI] 37.0-37.9, adult; I10 Essential (primary) hypertension; E78.00 Pure hypercholesterolemia, unspecified; E03.9 Hypothyroidism, unspecified; G47.33 Obstructive sleep apnea (adult) (pediatric)

== ENCOUNTER → 2024-10-08 23:59 | Outpatient (BNV) | payer OTHER, SELFPAY ==
--- NOTE | 2024-10-09 11:38 | A.OFFVIS_ITS ---
Intake Visit Reasons: Remote INVESTMENT ANALYST monitoring- [facility] Allergies No Known Allergies Allergy (Verified 09/24/24 14:13) [facility] Medical History Congestive heart failure LFT elevation Left bundle branch block Cardiomyopathy Annual physical exam Paroxysmal atrial fibrillation Obesity (BMI 30-39.9) Cancer of oropharynx Anxiety Erectile dysfunction Vitamin D deficiency Atrial fibrillation Fatty liver Hypercholesterolemia Hypertension Surgical History History of implantable cardioverter-defibrillator (ICD) insertion History of tonsillectomy Hx of cholecystectomy History of bilateral knee arthroplasty History of cardioversion Hx of knee surgery Family History Father Lung cancer Mother Diabetes Brother Substance abuse Social History Housing: House Alcohol intake: current Alcohol intake frequency: holidays/special occasions only Comment: 2 x a week 2-3 drinks Patient Tobacco Use Status: Never used Tobacco e-Cigarette/Vaping Use: Never Used Second Hand Smoke Exposure: No service: Yes Current occupational status: employed Cognitive needs: No Hearing needs: No Vision needs: No Office Procedures Cardiac Device Check Cardiac Device Check Details: Remote ICD report generated 10/08/2024. ICD function is adequate. One episode of nonsustained VT noted. Bi V pacing 96% of the time [id number] Cardiac Interrogation, implant defibrillator w/interim Procedure code (CPT) selection complete Assessment & Plan Assessment & Plan (1) Biventricular ICD (implantable cardioverter-defibrillator) in place: Code(s): Z95.810 - Presence of automatic (implantable) cardiac defibrillator Category: Medical Plan: See above Coding Level of Care Code Procedure Only Diagnoses Biventricular ICD (implantable cardioverter-defibrillator) in place Z95.810 CPT Codes Cardiac Device Check - Cardiac Device 13: [id number] Cardiac Interrogation, implant defibrillator w/interim ([id number])
== END ==
PROVIDERS: PCP Internal Medicine; Visit Provider Internal Medicine Cardiovascular Disease
DX: I49.9 Cardiac arrhythmia, unspecified (principal); Z95.810 Presence of automatic (implantable) cardiac defibrillator
CPT/HCPCS: 93295

== ENCOUNTER 2024-11-05 14:40 | Outpatient (AMB) | payer OTHER, SELFPAY ==
[2024-11-05 14:49] VITALS: BP 120/78; PULSE 94; BMI 37.2
--- NOTE | 2024-11-05 14:49 | A.OFFVIS_ITS ---
Vital Signs 11/05/24 14:49 Height 6 ft 1 in Weight 282 lb 3.067 oz BMI 37.2 BP 120/78 Blood Pressure Location Lt brachial Position Sitting Pulse 94 Intake Visit Reasons: 6 mth w/ device ck Intake Note: 6 month follow-up with ekg and and [facility] check feeling good Deicer Repairer Required: No Allergies No Known Allergies Allergy (Verified 09/24/24 14:13) Medication List - Last Reconciled 11/05/24 by Roel Benjamin MD amlodipine 5 mg PO DAILY apixaban (Eliquis) 5 mg PO BID atorvastatin 10 mg PO DAILY coenzyme Q10 (Co Q-10) 400 mg PO DAILY [CPAP Resmed Full face MASK Large Pressure 10 cm humudified air As directed] [CPAP Supplies As directed] dronedarone (Multaq) 400 mg PO BID levothyroxine 175 mcg PO DAILY 90 days losartan 100 mg PO DAILY metoprolol succinate ER 50 mg PO DAILY 90 days pilocarpine HCl 5 mg PO BID 90 days tadalafil (Cialis) 10 mg PO DAILY PRN 30 days tirzepatide 10 mg (0.5 mL) subcut QWEEK 90 days HPI Comments Details: Tim comes for follow-up. He has been doing well from cardiac perspective. Denies any prolonged palpitation irregular heartbeat. No lightheadedness, syncope, ICD discharge. No fluttering in his chest. No exertional chest pain or shortness of breath. No orthopnea, PND, leg edema. Uses and takes all his medications. COUNTS INCLUDE 234 BEDS AT THE [facility] Medical History Congestive heart failure LFT elevation Left bundle branch block Cardiomyopathy Annual physical exam Paroxysmal atrial fibrillation Obesity (BMI 30-39.9) Cancer of oropharynx Anxiety Erectile dysfunction Vitamin D deficiency Atrial fibrillation Fatty liver Hypercholesterolemia Hypertension Surgical History History of implantable cardioverter-defibrillator (ICD) insertion History of tonsillectomy Hx of cholecystectomy History of bilateral knee arthroplasty History of cardioversion Hx of knee surgery Family History Father Lung cancer Mother Diabetes Brother Substance abuse Social History Housing: House Alcohol intake: current Alcohol intake frequency: holidays/special occasions only Comment: 2 x a week 2-3 drinks Patient Tobacco Use Status: Never used Tobacco e-Cigarette/Vaping Use: Never Used Second Hand Smoke Exposure: No service: Yes Current occupational status: employed Cognitive needs: No Hearing needs: No Vision needs: No Review of Systems Const Denies chills, Denies fatigue, Denies fever(s), Denies frequent falls, Denies weakness, Denies weight gain and Denies weight loss ENT Denies dizziness Card Denies chest pain, Denies leg edema, Denies lightheadedness, Denies palpitations, Denies dyspnea, Denies dyspnea on exertion, Denies orthopnea and Denies other (loss of consciousness) Resp Denies cough, Denies dyspnea and Denies dyspnea on exertion GI Denies hematochezia and Denies change in stool character Musc Denies abnormal gait, Denies muscle weakness, Denies numbness, Denies radiating pain into limb and Denies tingling Neuro Denies abnormal gait, Denies dizziness, Denies frequent falls, Denies numbness, Denies tingling and Denies weakness Endo Denies fatigue and Denies palpitations Physical Exam Vital Signs: Last Vital Signs Pulse 94 11/05/24 14:49 BP 120/78 11/05/24 14:49 BMI result Body Mass Index 37.2 Office Procedures Cardiac Device Check Cardiac Device Check Details: Biventricular [facility] ICD in place. Programmed in DDDR at 60 beats per minute. Biventricular pacing 96% of time which is slightly suboptimal. One episode of nonsustained ventricular tachycardia noted. No episodes of atrial fibrillation noted. Atrial ventricular sensing is excellent. Atrial and biventricular capture thresholds are stable with adequate safety margin. Pacing and shock lead impedance is stable. Battery life is at 4.6-4.9 years [id number] Cardiac Device Check, multi lead implantable defibrillator Procedure code (CPT) selection complete EKG Details: EKG shows atrially sensed, ventricularly paced rhythm with frequent isolated PVCs, unifocal with fixed inter coupling [id number], Complete Assessment & Plan Assessment & Plan (1) Cardiomyopathy: Comment: ICD December 2021 Code(s): I42.9 - Cardiomyopathy, unspecified Category: Medical Plan: Nonischemic cardiomyopathy, suspected left bundle-branch block mediated. Status post Bi V ICD with improved LV ejection fraction. Follow-up echocardiogram in 6 months time. Continue neurohormonal modulation with losartan as well as metoprolol therapy. Given frequent PVCs will increase metoprolol to 100 mg daily to improve cardiac resynchronization therapy. Continue aggressive blood pressure control. Advised to avoid cardiac toxic agents such as alcohol. He understands agrees. Will follow-up echocardiogram in 5 months time. (2) Paroxysmal atrial fibrillation: Code(s): I48.0 - Paroxysmal atrial fibrillation Category: Medical Plan: Paroxysmal atrial fibrillation overall has remained suppressed on current therapy with dronedarone. Has done well with rhythm control approach will continue pursue rhythm control approach. Avoidance of stimulants was discussed. Continue full oral anticoagulation, currently on Eliquis 5 mg b.i.d.. Semi annual renal function test is recommended. Continue CPAP therapy. Continue participate in weight loss program. (3) Biventricular ICD (implantable cardioverter-defibrillator) in place: Code(s): Z95.810 - Presence of automatic (implantable) cardiac defibrillator Category: Medical Plan: Biventricular ICD in place, working well. Noted frequent PVCs and nonsustained VT. Will uptitrate metoprolol to 100 mg daily to suppress PVCs as well as improve Bi V pacing. Follow remotely. Follow up in the clinic in 6 months time. Will follow up in the clinic in 6 months time, sooner PRN. Thank you for allowing me to partake in his care Orders: Orders CA echo transthoracic complete 5 Months I42.9 - Cardiomyopathy, unspecified Medications: New metoprolol succinate ER (Toprol XL) 100 mg PO DAILY 30 tabs 5RF I42.9 - Cardiomyopathy, unspecified Discontinued metoprolol succinate ER Discontinued Reason: Doctor's Order 50 mg PO DAILY 90 days 90 tabs 3RF Coding Level of Care Code Est Pt Level 4 (47670) Complex EM visit Add On G2211 Diagnoses Cardiomyopathy I42.9 Paroxysmal atrial fibrillation I48.0 Biventricular ICD (implantable cardioverter-defibrillator) in place Z95.810 CPT Codes Cardiac Device Check - Cardiac Device 6: [id number] Cardiac Device Check, multi lead implantable defibrillator ([id number]) EKG - CPT: 14089-Hhbhazholrpzyjrsz, Complete ([id number])
--- OUTSIDE RECORDS SUMMARY | 2024-11-05 17:50 | XMS_ITS | Patient Health Record ---
Author Organization [facility] Address [address] [place] [address] Care Team Providers Care Window Installation Subcontractor Name Role Phone Po Mario COSTA Primary Care Provider Chava Brennan [phone] Reason For Referral No Information Medications Medication [...] W/U Status Risk Notes Problem Rectal bleeding (50275374) Rectal bleeding (K62.5) Active confirmed Problem 619492134 Fatty liver (K76.0) Active confirmed Problem 48661095 Heme positive stool (R19.5) Active confirmed Problem Diverticulosis of colon (314515933) Diverticulosis of colon (K57.30) Active confirmed Plan Of Treatment Pending Test Test Name Order Date LIVER PROFILE 10/26/2012 Future Test Test Name Order Date COLONOSCOPY 07/07/2015 COLONOSCOPY 11/18/2021 Insurance Providers Payer Name Payer Address Payer Phone Subscriber Number Group Number Insured Name Patient Relationship to Insured Coverage Start Date Coverage End Date [facility] [address] [facility] [place] [id number] PEPITO GUAN Self - patient is the insured Medical (General) History Medical History History ICD Code EGD 08-26-2010--normal Negative colonoscopy in 01/14 007 except diverticulosis and internal hemorrhoids Hyperlipidemia Hypertension Denies [place],DM,CVA,Lung disease,renal dise ase Hospitalizations for abdomin al [...]
--- OUTSIDE RECORDS SUMMARY | 2024-11-05 17:50 | XMS_ITS | Clinical Summary ---
Author Organization 175 [facility] Address [address] [place] [address] Phone Care Team Providers Care Strategic Marketing Specialist Name Role Phone NelsonRic Primary Care Provider [phone] Social History Tobacco Use Types Packs/Day Years Used Date Smoking Tobacco: Never Assessed Sex and Gender Information Value Date Recorded Sex Assigned at Not on file Legal Sex Male 4:09 PM EST Gender Identity Not on file Sexual Orientation Not on file Plan of Treatment Upcoming Encounters Date Type Department Care Team ([facility] Contact Info) Description 11/28/2024 9:15 AM EDT Office Visit Orthopedic Surgery [place] [phone] [phone] Ten Clements, DPM [address] [phone] Health Maintenance Due Date Last Done Comments DTaP,Tdap,and Td Vaccines (1 - Tdap) 1976 Pneumococcal Vaccine: 50+ Ye ars (1 of 1 - PCV) 12/10/2007 Zoster Vaccines (1 of 2) 12/10/2007 Depression Screening 02/14/2024 Abdominal Aortic Aneurysm (A AA) Screen 08/30/2024 Cholesterol Screening (Lipid Panel) 08/30/2024 Colorectal Cancer Screening: Colonoscopy 08/30/2024 Falls Risk Assessment 08/30/2024 Hepatitis C Screening 08/30/2024 Social Influencers of Health Screening 08/30/2024 COVID-19 Vaccine ( - 2023-2 5 season) 2024 Influenza Vaccine (#1) 2024 RSV Immunization Adult [...] age to complete this topic Insurance MEDICARE [facility] Care Teams Strategic Marketing Specialist Relationship Specialty Start Date End Date Ric Nelson FNP [address] [place] [address] [place] [address] PCP - General Family Medicine 7/17/25
== END 2024-11-05 15:23 | disposition home or self-care (01) ==
PROVIDERS: PCP Internal Medicine; Visit Provider Internal Medicine Cardiovascular Disease
DX: I42.9 Cardiomyopathy, unspecified (principal); I48.0 Paroxysmal atrial fibrillation; Z95.810 Presence of automatic (implantable) cardiac defibrillator
CPT/HCPCS: 93010; 93284; 99214; G2211

== ENCOUNTER → 2024-11-05 14:40 | Outpatient (BNVA) | payer OTHER, SELFPAY | PROVIDERS: PCP Internal Medicine; Visit Provider Internal Medicine Cardiovascular Disease | DX: Z45.02 Encounter for adjustment and management of automatic implantable cardiac defibrillator (principal); I42.9 Cardiomyopathy, unspecified; I48.0 Paroxysmal atrial fibrillation; I45.10 Unspecified right bundle-branch block; I49.3 Ventricular premature depolarization | CPT/HCPCS: 93005; 93284; 99212 ==

== ENCOUNTER 2025-01-28 14:04 | Outpatient (AMB) | payer MEDICARE, SELFPAY ==
--- NOTE | 2025-01-28 14:07 | MHC.PC.OV ---
Vital Signs 01/28/25 14:08 Height 6 ft 1 in Weight 278 lb 2 oz BMI 36.7 BP 134/76 Respiration 14 Pulse 74 Pulse Source Pulse Oximeter Temp 97.0 F Temp Source Temporal Artery Scan Pulse Oximetry (%) 98 Oxygen Delivery Method Room Air Intake Visit Reasons: DM Dry Heat Room Attendant Required: No Accompanied by: Self / Same As Patient Allergies No Known Allergies Allergy (Verified 01/28/25 14:08) Medication List - Last Reconciled 01/28/25 by Mario Dickerson MD amlodipine 5 mg PO DAILY apixaban (Eliquis) 5 mg PO BID atorvastatin 10 mg PO DAILY clotrimazole 1% appl topical BID coenzyme Q10 (Co Q-10) 400 mg PO DAILY [CPAP Resmed Full face MASK Large Pressure 10 cm humudified air As directed] [CPAP Supplies As directed] dronedarone (Multaq) 400 mg PO BID levothyroxine 175 mcg PO DAILY 90 days losartan 100 mg PO DAILY metoprolol succinate ER (Toprol XL) 100 mg PO DAILY pilocarpine HCl 5 mg PO BID 90 days tadalafil (Cialis) 10 mg PO DAILY PRN 30 days tirzepatide 10 mg (0.5 mL) subcut QWEEK 90 days Tobacco use date assessed: 09/24/24 Dental Screening Dental Screen Date: 05/21/24 [facility] Medical History Congestive heart failure LFT elevation Left bundle branch block Cardiomyopathy Annual physical exam Paroxysmal atrial fibrillation Obesity (BMI 30-39.9) Cancer of oropharynx Anxiety Erectile dysfunction Vitamin D deficiency Atrial fibrillation Fatty liver Hypercholesterolemia Hypertension Surgical History History of implantable cardioverter-defibrillator (ICD) insertion History of tonsillectomy Hx of cholecystectomy History of bilateral knee arthroplasty History of cardioversion Hx of knee surgery Family History Father Lung cancer Mother Diabetes Brother Substance abuse Social History Housing: House Alcohol intake: current Alcohol intake frequency: holidays/special occasions only Comment: 2 x a week 2-3 drinks Patient Tobacco Use Status: Never used Tobacco e-Cigarette/Vaping Use: Never Used Second Hand Smoke Exposure: No service: Yes Current occupational status: employed Cognitive needs: No Hearing needs: No Vision needs: No Questionnaire Thrive Questionnaire Date Thrive assessed: 02/15/24 I am a: Patient What is your living situation today?: I have a steady place to live Within the past 12 months, did the food you bought not last and you didn't have the money to get more?: Never true Within the past 12 months, did you worry whether your food would run out before you got money to buy more?: Never true Do you have trouble paying for medicines?: No Do you have trouble getting transportation to medical appointments?: No Do you have trouble paying your heating and electricity bill?: No Do you have trouble taking care of your child, family member or friend?: No Do you have trouble with day-to-day activities such as bathing, preparing meals, shopping, managing finances, etc.?: No Are you currently unemployed and looking for a job?: No Are you interested in more education?: No Please select the resources that you would like help with: None Currently or been in a relationship where the following occur: No concerns reported THRIVE Score: 0 GABRIELA-7 AMB Questionnaire GABRIELA-7 Date GABRIELA - 7 assessed: 05/21/24 Source: Developed by Drs. Chava Lynch, Leslie Menard, Brandon Bell and colleagues, with an educational sheridan from [employer]. Physical exam (Primary Care) Vital Signs: Last Vital Signs Temp 97.0 F 01/28/25 14:08 Pulse 74 01/28/25 14:08 Resp 14 01/28/25 14:08 BP 134/76 01/28/25 14:08 Pulse Ox 98 01/28/25 14:08 Oxygen Delivery Method Room Air 01/28/25 14:08 BMI result Body Mass Index 36.7 Tobacco/Smoking Status: Tobacco use Status Tobacco use date assessed 09/24/24 01/28/25 14:13 Patient Tobacco Use Status Never used Tobacco 01/28/25 14:13 e-Cigarette/Vaping Use Never Used 01/28/25 14:13 Thrive Assessment: Date of Thrive Assessment Date Thrive assessed 02/15/24 01/28/25 14:13 Currently or been in a relationship where the following occur: No concerns reported Const General: alert; No acute distress Eyes Conjunctivae: conjunctivae normal Resp Auscultation: clear to auscultation bilaterally Cardio Rate: regular rate Rhythm: regular rhythm GI Inspection: Yes normal to inspection Extrem General: Yes normal to inspection and No edema Coding Level of Care Code Est Pt Level 4 (05531) Add On Problem Visit Only Diagnoses Type 2 diabetes mellitus with hyperglycemia E11.65 Paroxysmal atrial fibrillation I48.0 Essential hypertension I10 Hypertension type: essential hypertension Cardiomyopathy I42.9 Biventricular ICD (implantable cardioverter-defibrillator) in place Z95.810 Hypercholesterolemia E78.00 Obesity (BMI 30-39.9) E66.9 Hypothyroid E03.9 SHAR (obstructive sleep apnea) G47.33 Assessment & Plan Assessment & Plan (1) Type 2 diabetes mellitus with hyperglycemia: Code(s): E11.65 - Type 2 diabetes mellitus with hyperglycemia Category: Medical Plan: Decrease the amount of carbohydrate intake, pasta, bread, rice and potatoes are all sugar and that is aside from all the sweet stuff, remember that fruits are good but they are Sweet also. Hemoglobin A1c goal of less than 7.0. (2) Paroxysmal atrial fibrillation: Code(s): I48.0 - Paroxysmal atrial fibrillation Category: Medical Plan: Patient continues to be followed up by Cardiology on Multaq and anticoagulation with Eliquis. (3) Hypertension: Comment: Nuclear stress test July 2019 normal ejection fraction 54% LV dilatation Code(s): I10 - Essential (primary) hypertension Category: Medical Qualifiers: Hypertension type: essential hypertension Qualified Code(s): I10 - Essential (primary) hypertension Plan: Continue with blood pressure medication. Decrease salt intake and exercise patient on amlodipine 5 mg once a day losartan 100 mg once a day metoprolol 100 mg once a day (4) Cardiomyopathy: Comment: ICD December 2021 Code(s): I42.9 - Cardiomyopathy, unspecified Category: Medical Plan: Continuing with the ICD continue to be monitored blood pressure medication increase metoprolol due to ICD noting ventricular tachycardia and frequent PVCs (5) Biventricular ICD (implantable cardioverter-defibrillator) in place: Code(s): Z95.810 - Presence of automatic (implantable) cardiac defibrillator Category: Medical Plan: Continue to be monitored (6) Hypercholesterolemia: Code(s): E78.00 - Pure hypercholesterolemia, unspecified Category: Medical Plan: Avoid fried foods, chicken skin, eggs, butter margarine, pastries and meat. Be it pork or beef they have a lot of cholesterol LDL goal of less than 70 and triglyceride of less than 150 on atorvastatin 10 (7) Obesity (BMI 30-39.9): Code(s): E66.9 - Obesity, unspecified Category: Medical Plan: Diet and exercise (8) Hypothyroid: Code(s): E03.9 - Hypothyroidism, unspecified Category: Medical Plan: Continue with thyroid medication (9) SHAR (obstructive sleep apnea): Code(s): G47.33 - Obstructive sleep apnea (adult) (pediatric) Category: Medical Plan: Continue to use the CPAP more than 4 hours a night and benefits from this.
[2025-01-28 14:08] VITALS: BP 134/76; PULSE 74; RESP 14; TEMP 36.1; O2SAT 98; BMI 36.7
--- OUTSIDE RECORDS SUMMARY | 2025-01-28 18:20 | XMS_ITS | Clinical Summary ---
Author Organization 175 [facility] Address [address] [place] [address] Phone Care Team Providers Care Press Leader Name Role Phone Ric Nelson Gregory WYATT Primary Care Provider [phone] Allergies No known active allergies Encounters Date Type Department Care Team Description 11/28/2024 9:15 AM EDT Office Visit Orthopedic [facility] [address] [phone] Ten Clements DPM Dermatophytosis of nail (Primary Dx); Pain in toe of right foot; Pain in toe of left foot; Tinea pedis of both feet; Bilateral femoral artery stenosis (CMS/HCC V24) from Last 3 Months Social History Tobacco Use Types Packs/Day Years Used Date Smoking Tobacco: Never Assessed Sex and Gender Information Value Date Recorded Sex Assigned at Not on file Legal Sex Male 4:09 PM EST Gender Identity Not on file Sexual Orientation Not on file Plan of Treatment Upcoming Encounters Date Type Department Care Team ([facility] st Contact Info) Description 03/03/2025 2:00 PM EST Office Visit Orthopedic [facility] [address] [phone] Ten Clements DPM [address] [phone] Health Maintenance Due Date Last Done Comments Colorectal Cancer Screening: Colonoscopy 1955 Depression Screening 02/14/2024 Abdominal Aortic Aneurysm (AAA) Screen 08/30/2024 Cholesterol Screening (Lipid Panel) 08/30/2024 Falls Risk Assessment 08/30/2024 Hepatitis C Screening 08/30/2024 Social Influencers of Health Screening 08/30/2024 COVID-19 Vaccine ( season) 2024 11/24/2023, 11/24/2022, 11/23/2021, Additional history exists Influenza Vaccine (#1) 2024 , 11/24/2023, 11/24/2022, Additional history exists Hypertension/CHF/CAD Annual BMP Blood Test 11/28/2024 DTaP,Tdap,and Td Vaccines (3 - Td or Tdap) 03/21/2033 03/21/2023, 07/23/2019 RSV Immunization Adult Patients Completed 12/29/2022 Zoster Vaccines Completed 03/21/2023, 01/11/2023 Pneumococcal Vaccine: 50+ Years Completed 07/13/2023, 02/18/2019, 12/31/2018, Additional history exists HIB Vaccines Aged Out No longer eligi [...] to complete this topic RSV Immunization Patients Under 20 months Aged Out No longer eligible based on patient's age to complete this topic Varicella Vaccines Aged Out No longer eligible based on patient's age to complete this topic Insurance MEDICARE [facility] Care Teams Press Leader Relationship Specialty Start Date End Date Ric Nelson FNP [address] [place] [address] [place] [address] PCP - General Family Medicine 08/29/24
--- OUTSIDE RECORDS SUMMARY | 2025-01-28 18:20 | XMS_ITS | Patient Health Record ---
Author Organization [facility] Address [address] [place] [address] Care Team Providers Care Engine Wiper Name Role Phone Po Mario COSTA Primary Care Provider Chava Brennan [phone] Reason For Referral No Information Medications Medication SIG (Take, Route, Frequency, Duration) Notes Start Date End Date Status Metoprolol Succinate ER 25 MG Tablet Extended Release 24 Hour TAKE 1 TABLET BY MOUTH DAILY Oral; Duration: 90 Active Aspir-81 81mg Not-Ta martinez/PRN Losartan Potassium 100 MG Tablet Oral; Duration: 90 Active CoQ-10 400 MG Capsule as directed Orally Active Centrum Silver Not-T aking/PRN Levothyroxine Sodium 25 MCG Tablet Oral; Duration: 90 Not-Takin g/PRN Atorvastatin Calcium 10 MG Tablet 1 tablet Orally Once a day Active Pilocarpine HCl 5 MG Tablet Oral; Duration: 90 Active amLODIPine Besylate 10 MG Tablet 1 tablet Orally Once a day Active Eliquis 5 MG Tablet 1 tablet Orally twice a day Active Immunizations Vaccine Route Administration Date Status Comme nts Influenza Unknown 11/13/2021 Administered Social History Social History Additional Details Category Social Info Options Details Miscellaneous: Marital status: 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 Section Notes: Nonsmoker; occ. wine Nonsmoker; occ. wine Nonsmoker; occ. wine Nonsmoker; occ. wine Problems Problem Type SNOMED Code ICD Code Onset Dates Problem Status W/U Status Risk Notes Problem Rectal bleeding (18396079) Rectal bleeding (K62.5) Active confirmed Problem Fatty liver (991587256) Fatty liver (K76.0) Active confirmed Problem Abnormal feces (577135893) Heme positive stool (R19.5) Active confirmed Problem Diverticulosis of colon (050796048) Diverticulosis of colon (K57.30) Active confirmed Plan Of Treatment Pending Test Test Name Order Date LIVER PROFILE 10/26/2012 Future Test Test Name Order Date COLONOSCOPY 07/07/2015 COLONOSCOPY 11/18/2021 Insurance Providers Payer Name Payer Address Payer Phone Subscriber Number Group Number Insured Name Patient Relationship to Insured Coverage Start Date Coverage End Date [facility] [address] [address] [place] [phone] [id number] PEPITO GUAN Self - patient is the insured Medical (General) History Medical History History ICD Code EGD 08-26-2010--normal Negative colonoscopy in 01/14 007 except diverticulosis and internal hemorrhoids Hyperlipidemia Hypertension Denies [place],DM,CVA,Lung disease,renal dise ase Hospitalizations for abdomin al [...]
== END 2025-01-28 14:56 | disposition home or self-care (01) ==
LOC: HO.HMCH 14:05
PROVIDERS: PCP Internal Medicine; Visit Provider Internal Medicine
DX: E11.65 Type 2 diabetes mellitus with hyperglycemia (principal); I48.0 Paroxysmal atrial fibrillation; I42.9 Cardiomyopathy, unspecified; I10 Essential (primary) hypertension; E66.9 Obesity, unspecified; Z68.36 Body mass index [BMI] 36.0-36.9, adult; Z95.810 Presence of automatic (implantable) cardiac defibrillator; E78.00 Pure hypercholesterolemia, unspecified; E03.9 Hypothyroidism, unspecified; G47.33 Obstructive sleep apnea (adult) (pediatric)

== ENCOUNTER → 2025-01-28 14:04 | Outpatient (BNVA) | payer MEDICARE, OTHER, SELFPAY | PROVIDERS: PCP Internal Medicine; Visit Provider Internal Medicine | DX: E11.65 Type 2 diabetes mellitus with hyperglycemia (principal); I48.0 Paroxysmal atrial fibrillation; I10 Essential (primary) hypertension; E78.00 Pure hypercholesterolemia, unspecified; E66.9 Obesity, unspecified; Z95.810 Presence of automatic (implantable) cardiac defibrillator; I42.9 Cardiomyopathy, unspecified; E03.9 Hypothyroidism, unspecified; G47.33 Obstructive sleep apnea (adult) (pediatric); Z99.89 Dependence on other enabling machines and devices; Z79.899 Other long term (current) drug therapy | CPT/HCPCS: 99212 ==

== ENCOUNTER → 2025-01-29 14:45 | Outpatient (BNV) | payer MEDICARE, SELFPAY | PROVIDERS: PCP Internal Medicine; Visit Provider Internal Medicine Cardiovascular Disease | DX: I49.9 Cardiac arrhythmia, unspecified (principal); Z95.810 Presence of automatic (implantable) cardiac defibrillator | CPT/HCPCS: 93295 ==

== ENCOUNTER → 2025-01-29 15:19 | Outpatient (BNV) | payer MEDICARE, SELFPAY | PROVIDERS: PCP Internal Medicine; Visit Provider Internal Medicine Cardiovascular Disease | DX: I50.9 Heart failure, unspecified (principal); Z95.810 Presence of automatic (implantable) cardiac defibrillator | CPT/HCPCS: 93297 ==

== ENCOUNTER 2025-02-08 12:55 | Inpatient (IN) | payer MEDICARE, SELFPAY ==
[2025-02-08] VITALS (8 sets, daily range): BP systolic 108–161; BP diastolic 57–82; PULSE 87–118; RESP 17–22; TEMP 36.6–37.7; O2SAT 92–98; BMI 36.6
--- NOTE | ~2025-02-08 | CT_ITS ---
CLINICAL HISTORY: RLQ pain +mcburney tenderness Exam: CT Abdomen and Pelvis Without IV Contrast Comparison: Findings: The liver density is homogeneous No biliary abnormalities. Gallbladder is surgically absent. The spleen is normal in size No pancreatic ductal dilatation No hydronephrosis. No urinary tract calculi Normal bowel caliber The appendix is enlarged there is periappendiceal increased inflammatory fat density. No free fluid/free air The abdominal aorta caliber is normal Bladder outline is smooth No suspicious skeletal lesions Impression : Acute appendicitis. No signs of perforation in the form of tiny gas bubbles. There is periappendiceal increased inflammatory fat density. No abscess. This document has been electronically signed by: Wilfrid Witt MD on 02/08/2025 17:41:55
--- NOTE | 2025-02-08 12:57 | ED.GENADULT ---
HPI - General Adult General Chief complaint: Abdominal Pain Stated complaint: lower abd pain Time Seen by Provider: 02/08/25 14:56 Source: patient and family () Mode of arrival: ambulatory Limitations: no limitations History of Present Illness ED Provider: LINDA BERNAL PA-C HPI narrative: 69 year old male with pmhx significant for hitatal hernia, T2DM on Mounjaro, LBBB, paroxysmal atrial fibrillation s/p pacemaker on apixaban, HLD, HTN, oropharyngeal cancer in remission, hypothyroidism presents to the ED today for evaluation of lower abdominal pain x4 days. Patient was placed on mounjaro 12 months ago. 6 months after starting this, patient began to struggle with constipation. He began drinking prune juice and a stool softener, has not had any issues w/ BMs since. He began to have middle lower abdominal pain 5 days ago that has now moved to his right lower quadrant. Pain is constant and worsening. He initially thought he may be constipated hower has been drinking colace, prune juice, and golytly with multiple positive bowel movements. Endorses nausea at present, no vomiting. He is passing flatus. Denies fever, chills, chest pain, diarrhea, flank pain, urinary sx. Pertinent surgical history includes cholecystectomy. Related Data Home Medications ?Medication ?Instructions ?Recorded ?Confirmed coenzyme Q10 200 mg capsule (Co 400 mg PO DAILY 10/12/21 01/28/25 Q-10) clotrimazole 1 % topical cream 1 appl topical BID 01/28/25 02/09/25 tirzepatide 10 mg/0.5 mL 10 mg subcut FR 02/09/25 02/09/25 subcutaneous pen injector (Mounjaro) Previous Rx's ?Medication ?Instructions ?Recorded CPAP Supplies #1 ea 05/05/20 CPAP Resmed Full face MASK Large #1 ea 09/03/20 Pressure 10 cm humudified air tadalafil 10 mg tablet (Cialis) 10 mg PO DAILY PRN sexual activity 09/03/20 30 days #14 tabs apixaban 5 mg tablet (Eliquis) 5 mg PO BID #180 tabs 03/09/23 atorvastatin 10 mg tablet 10 mg PO DAILY #90 tabs 07/13/23 pilocarpine HCl 5 mg tablet 5 mg PO BID 90 days #180 tabs 07/13/23 amlodipine 5 mg tablet 5 mg PO DAILY #90 tabs 11/08/23 dronedarone 400 mg tablet (Multaq) 400 mg PO BID #180 tabs 05/23/24 levothyroxine 175 mcg tablet 175 mcg PO DAILY 90 days #90 tabs 06/10/24 losartan 100 mg tablet 100 mg PO DAILY #90 tabs 10/20/24 metoprolol succinate 100 mg 100 mg PO DAILY #90 tabs 11/18/24 tablet,extended release 24 hr (Toprol XL) Allergies Allergy/AdvReac Type Severity Reaction Status Date / Time No Known Allergies Allergy Verified 02/08/25 12:58 Review of Systems Review of Systems: Yes all other systems are reviewed and are negative [facility] Past Medical History Attestation statement: The following information was validated with the patient. Source: old records reviewed and nursing notes reviewed Medical History Congestive heart failure LFT elevation Left bundle branch block Cardiomyopathy Annual physical exam Paroxysmal atrial fibrillation Obesity (BMI 30-39.9) Cancer of oropharynx Anxiety Erectile dysfunction Vitamin D deficiency Atrial fibrillation Fatty liver Hypercholesterolemia Hypertension Surgical History History of implantable cardioverter-defibrillator (ICD) insertion History of tonsillectomy Hx of cholecystectomy History of bilateral knee arthroplasty History of cardioversion Hx of knee surgery Family History Family History Father Lung cancer Mother Diabetes Brother Substance abuse Social History Social History Household Members: Spouse Housing: House Alcohol intake: current Alcohol intake frequency: holidays/special occasions only Comment: counts correct Patient Tobacco Use Status: Never used Tobacco Smoked in Last 30 Days: No e-Cigarette/Vaping Use: Never Used Second Hand Smoke Exposure: No Use of substances other than those prescribed or required for medical reasons: No Have you been hit, kicked, punched, or otherwise hurt by someone within the past year? If so, by whom?: No Do you feel safe in your current relationship?: Yes Is there a partner from a previous relationship who is making you feel unsafe now?: No Are you made to feel afraid or neglected: No Advance Directives: No Advance Directives Information Provided: No Do you have a plan to hurt others: No Plan Recently lost weight without trying: No Eating poorly because of decreased appetite: No service: Yes Current occupational status: employed Cognitive needs: No Hearing needs: No Vision needs: No Physical Exam ED Vital Signs: Vital Signs - 24 hr 02/08/25 12:57 02/08/25 15:26 02/08/25 17:16 Temperature 98.0 F 97.8 F Pulse Rate 87 87 Respiratory Rate 18 18 18 Blood Pressure 161/57 H 133/76 Pulse Oximetry 97 97 Oxygen Delivery Method Room Air Room Air Oxygen Flow Rate 02/08/25 17:18 02/08/25 18:14 02/08/25 19:13 Temperature 97.8 F 99.8 F 99.0 F Pulse Rate 90 102 H 113 H Respiratory Rate 18 17 20 Blood Pressure 108/64 151/73 H Pulse Oximetry 98 94 97 Oxygen Delivery Method Room Air Room Air Room Air Oxygen Flow Rate 02/08/25 19:37 02/08/25 21:47 Temperature 98.2 F Pulse Rate 115 H 118 H Respiratory Rate 22 H 17 Blood Pressure 132/80 137/82 Pulse Oximetry 92 95 Oxygen Delivery Method Nasal Cannula Nasal Cannula Oxygen Flow Rate 2 2 BMI result Body Mass Index 36.6 hypertensive, vitals are otherwise wnl General: uncomfortable appearing, hunched over in pain Skin: Warm, dry, intact. No rashes or lesions. Head: Normocephalic, atraumatic. EENT: Hearing is intact b/l. Conjunctiva clear. Sclera is anicteric. PERRLA. EOM intact. Moist mucous membranes.? Cardiac: Chest wall symmetric. RRR Lungs: Normal respiratory effort without accessory muscle use. CTA bilaterally Abdomen: obese abdomen, ND, diffusely ttp with +mcburney point tenderness, active BS4 Back: No midline spinous or paraspinal tenderness. No step off deformity. Ext: Upper and lower extremities atraumatic, without tenderness, deformity, swelling or erythema Neuro: AOx3. Normal speech. Ambulating with steady gait. Course Course Course Narrative: RME, this is a rapid medical exam performed by Mike Waller please refer to primary provider for complete H&P- 69 year old male presents for evaluation of lower abdominal pain. The pain started 3 days ago initially in the lower center abdomen and now localized to the right lower abdomen. He has a previous cholecystectomy but no other abdominal surgeries. Plan for labs urinalysis. Will defer any potential advanced imaging to primary ER provider Reevaluation(s) Reevaluation #1: 2633 -- CBC without leukocytosis. There is neutrophil predominance. H&H stable and above transfusion threshold. Chemistry without acute electrolyte abnormality requiring intervention. No CARO. Random glucose 143, no anion gap. Liver function WNL. Lipase mildly bumped to 142, pancreatitis low on differential. > I have reviewed CT abdomen/pelvis, there is concern for possible microperforation of bowel. [place] has called Radiology to have them read the scan stat. I will be obtaining lactic/blood cultures, Zosyn and Flagyl ordered for coverage. Patient medicated with morphine and Dilaudid for pain control. 1799 -- CT showing uncomplicated acute appendicitis. No evidence of bowel obstruction, microperforation or abscess. lactic wnl. cultures sent. Discussed findings with on-call general surgeon Dr. Hernandez - given patient is on Apixaban with his last dose being this morning, he is recommending the patient be started on Kcentra. This has been ordered. Dr. Hernandez to evaluate patient. pending dispo. findings discussed with patient, he is stable at this time. last PO around 1400. 1944 -- Patient requesting more pain meds for 7/10 abdominal pain, reports feel something pop in abdomen. He has already received a dose of morphine and 2 doses of Dilaudid. Discussed w/ my attending dr. salazar, will order one more mg of dialudid - message sent to Dr. Hernandez. no admission/ surgery orders placed yet. 2099 -- dr. hernandez evaluated patient at bedside. plan for OR tonight. dr. hernandez to place orders. patient stable at this time. Medications Administered Generic Name Dose Route Start Last Admin Trade Name Freq PRN Reason Stop Dose Admin Docusate Sodium 100 mg 02/09/25 09:00 02/09/25 08:55 Docusate Sodium 100 Mg Capsule PO 100 mg BID MAY Administration Heparin Sodium (Porcine) 5,000 unit 02/09/25 00:15 02/09/25 01:28 Heparin Sodium,Porcine 5,000 Unit/Ml Vial SUBCUT 5,000 unit Q12H MAY Administration Hydromorphone HCl 0.5 mg 02/09/25 05:45 02/09/25 05:46 Hydromorphone Hcl 0.5 Mg/0.5 Ml Syringe IVPUSH 0.5 mg Q4H PRN Administration Pain, Severe (Pain Scale 7-10) Protocol Dextrose/Sodium Chloride 1,000 mls @ 100 mls/hr 02/09/25 00:15 02/09/25 01:26 D51/2ns IVCONT 100 mls/hr .Q10H MAY Administration Sodium Chloride 3 ml 02/09/25 08:00 02/09/25 08:55 0.9 % Sodium Chloride Flush 3 Ml Syringe IVFLUSH 3 ml QSHIFT MAY Administration Discontinued Medications Generic Name Dose Route Start Last Admin Trade Name Freq PRN Reason Stop Dose Admin Hydromorphone HCl 0.5 mg 02/08/25 16:02 02/08/25 16:15 Hydromorphone Hcl 0.5 Mg/0.5 Ml Syringe IVPUSH 02/08/25 16:03 0.5 mg ONCE ONE Administration Protocol Hydromorphone HCl 1 mg 02/08/25 17:00 02/08/25 17:16 Hydromorphone Hcl 1 Mg/Ml Syringe IVPUSH 02/08/25 17:01 1 mg ONCE ONE Administration Protocol Hydromorphone HCl 1 mg 02/08/25 19:24 02/08/25 19:36 Hydromorphone Hcl 1 Mg/Ml Syringe IVPUSH 02/08/25 19:25 1 mg ONCE ONE Administration Protocol Sodium Chloride 1,000 mls @ 999 mls/hr 02/08/25 15:15 02/08/25 16:57 Ns IV 02/08/25 16:15 Infused .Q1H1M MAY Infusion Piperacillin Sod/Tazobactam 100 mls @ 200 mls/hr 02/08/25 17:26 02/08/25 18:21 Sod 4.5 gm/ Sodium Chloride IV 02/08/25 17:55 Infused ONCE ONE Infusion Metronidazole 500 mg in 100 mls @ 100 mls/hr 02/08/25 17:26 02/08/25 19:12 Flagyl IV 02/08/25 18:25 Infused ONCE ONE Infusion Prothrombin Complex Concent ( 80 mls @ 480 mls/hr 02/08/25 17:59 02/08/25 19:12 Human) 2,000 unit/ IV IV 02/08/25 18:08 Infused Miscellaneous Supplies .Q10M ONE Infusion Piperacillin Sod/Tazobactam 50 mls @ 100 mls/hr 02/09/25 00:13 02/09/25 02:00 Sod 3.375 gm/ Sodium Chloride IV 02/09/25 00:42 Infused ONCE ONE Infusion Iohexol 100 ml 02/08/25 16:23 02/08/25 16:24 Iohexol 350 Mg/Ml 100 Ml Infus..Btl IV 02/08/25 16:24 85 ml ONCE ONE Administration Morphine Sulfate 4 mg 02/08/25 15:14 02/08/25 15:37 Morphine Sulfate 4 Mg/Ml Cartridge IVPUSH 02/08/25 15:15 4 mg ONCE ONE Administration Protocol Pantoprazole Sodium 40 mg 02/09/25 00:12 02/09/25 01:28 Pantoprazole Sodium 40 Mg/10 Ml Vial IVPUSH 02/09/25 00:13 40 mg ONCE ONE Administration Medical Decision Making Medical Decision Making MDM Narrative: 69 year old male with pmhx significant for hitatal hernia, T2DM on Mounjaro, LBBB, paroxysmal atrial fibrillation s/p pacemaker, HLD, HTN, oropharyngeal cancer in remission, hypothyroidism presents to the ED today for evaluation of lower abdominal pain x4 days. Differential diagnoses: appendicitis, diverticulitis, diverticulosis, UTI, IUP, constipation Abdominal exam without peritoneal signs. No evidence of acute abdomen at this time. Well appearing. Low suspicion for acute hepatobiliary disease (including acute cholecystitis), acute infectious processes (pneumonia, hepatitis, pyelonephritis, PID, TOA), vascular catastrophe, bowel obstruction or viscus perforation, testicular torsion, orchitis, epidydymitis. Presentation not consistent with other acute, emergent causes of abdominal pain at this time. Plan for labs, imaging, UA, viral swabs, pain control, IVF and re-evaluation. Differential Diagnosis Differential Diagnoses: The differential diagnosis associated with the presentation includes as above. Admission/Observation Consideration of admission/observation: Escalation of care including admission/observation considered patient admitted to general surgery for management of acute appe Consult Healthcare Provider Management of the patient was discussed with: Certified Peer Specialist (general surgeon dr. hernandez) Lab Data MDM Lab Attestation statement: I reviewed the patient's lab results. As above 02/09/25 05:44 02/08/25 13:23 Labs: Lab Results 02/08/25 02/08/25 Range/Units 13:23 17:46 WBC 9.7 (4.8-10.8) X10*3/uL RBC 4.54 L (4.60-5.80) X10*6/uL Hgb 14.3 (14.0-18.0) g/dl Hct 42.2 (42.0-52.0) % MCV 93.0 (80.0-98.0) fL MCH 31.5 (27.0-33.0) pg MCHC 33.9 (31.0-36.0) g/dl RDW 12.4 (11.0-16.0) % Plt Count 127 L (160-400) X10*3/uL MPV 8.7 L (9.4-12.4) fL Immature Gran % (Auto) 0.2 (0.0-0.4) % Neut % (Auto) 80.2 H (45-73) % Lymph % (Auto) 11.4 L (20-40) % [place] % (Auto) 6.6 (2-11) % Eos % (Auto) 1.4 (0-4) % Baso % (Auto) 0.2 (0-2) % Lymph # (Auto) 1.1 L (1.2-4.9) X10*3/uL [place] # (Auto) 0.6 (0.1-1.2) X10*3/uL Eos # (Auto) 0.1 (0.0-0.4) X10*3/uL Baso # (Auto) 0.0 (0.0-0.2) X10*3/uL Abs Immat Gran (auto) 0.02 (0.00-0.03) X10*3/uL Absolute Neuts (auto) 7.8 (2.0-8.3) x10*3/uL Absolute Nucleated RBC 0.000 (0.0-0.012) X10*3/uL Nucleated RBC % (auto) 0.0 (0.0-0.2) /100WBC Sodium 139 (135-145) mmol/L Potassium 4.3 (3.3-5.1) mmol/L Chloride 108 (96-108) mmol/L Carbon Dioxide 23 (22-29) mmol/L Anion Gap 12 (12-20) BUN 12 (9-16) mg/dL Creatinine 0.72 (0.5-1.4) mg/dL Estim Creat Clear Calc 138.3 Estimated GFR > 60 Random Glucose 143 H (60-115) mg/dL Lactic Acid 1.1 (0.5-2.0) mmol/L Calcium 9.2 (8.4-10.2) mg/dL Total Bilirubin 1.0 (0.0-1.0) mg/dL AST 24 (5-37) U/L ALT 33 (0-40) U/L Alkaline Phosphatase 77 (39-117) U/L Total Protein 6.9 (6.5-8.0) g/dL Albumin 4.4 (3.5-5.0) g/dL Lipase 142 H (8-78) U/L Urine Color Yellow Urine Appearance Clear Urine pH 6.0 (5.0-9.0) Ur Specific [place] 1.020 (1.005-1.025) Urine Protein Negative (Neg-Trace) mg/dL Urine Glucose (UA) Negative (Negative) mg/dL Urine Ketones Negative (Negative) mg/dL Urine Blood Trace H (Negative) Urine Nitrite Negative (Negative) Ur Leukocyte Esterase Trace H (Negative) Urine RBC 3-5 H (0-2) /HPF Urine WBC 0-5 (0-5) /HPF Ur Squamous Epith Cells 0-2 (0-2) /HPF Urine Bacteria None Seen (None Seen) Hyaline Casts 0-2 (0-2) /LPF Independent Interpretation I performed an independent interpretation of an: CT Scan Interpretation: ct a/p without bowel obstruction Radiology Impression Discussion of test interpretation with radiology: I have reviewed the radiologist's reading. Radiologist Impression: Procedure(s): CT abdomen pelvis w IV con Accession Number(s): [id number] cc: Mario Dickerson MD; Linda Bernal~ Report Number: [id number]: Total DLP = 900.00 mGy-cm Reason for Exam: RLQ pain +mcburney tenderness CLINICAL HISTORY: RLQ pain +mcburney tenderness Exam: CT Abdomen and Pelvis Without IV Contrast Comparison: Findings: The liver density is homogeneous No biliary abnormalities. Gallbladder is surgically absent. The spleen is normal in size No pancreatic ductal dilatation No hydronephrosis. No urinary tract calculi Normal bowel caliber The appendix is enlarged there is periappendiceal increased inflammatory fat density. No free fluid/free air The abdominal aorta caliber is normal Bladder outline is smooth No suspicious skeletal lesions Impression : Acute appendicitis. No signs of perforation in the form of tiny gas bubbles. There is periappendiceal increased inflammatory fat density. No abscess. This document has been electronically signed by: Wilfrid Witt MD on 02/08/2025 17:41:55 Independent Historian Clinical information obtained from an independent historian. History obtained from or confirmed by: Spouse External Record Review External record reviewed: Inpatient record Prescription Management I considered prescription management with: Pain Medication and Antibiotic Chronic Conditions Patient?s care impacted by: Diabetes Social Determinants Patient?s care significantly limited by Social Determinants of Health including: Other Social Determinant of Health Critical Care Time Critical Care Time Critical Care Time: Yes Total Critical Care Time: 55 Attestation: Critical care time in the amount of 55 minutes has been provided to the patient in terms of direct patient care, frequent reevaluation, consultation with general surgery, review and interpretation of medical data and results, and management of potentially life-threatening conditions. This is all outside of any medical procedures. Discharge Plan Discharge Clinical Impression: Acute appendicitis Patient Disposition: Admitted As Inpatient Discharge Date/Time: 02/09/25 02:17
[2025-02-08 13:30] LABS: MANUAL DIFF FLAG NO
[2025-02-08 13:32] LABS: Appearance Urine Clear; Glucose Urine UA Negative (Negative); Hematocrit 42.2 % (42.0-52.0); Hemoglobin 14.3 g/dl (14.0-18.0); Imm Gran Abs Auto 0.02 X10*3/uL (0.00-0.03); Imm Gran Pct Auto 0.2 % (0.0-0.4); Lymphocytes Absolute Auto 1.1 X10*3/uL (1.2-4.9); Mean Corpuscular HGB Conc 33.9 g/dl (31.0-36.0); Mean Corpuscular Hemoglobin 31.5 pg (27.0-33.0); Mean Corpuscular Volume 93.0 fL (80.0-98.0); NRBC Abs Auto 0.000 X10*3/uL (0.0-0.012); NRBC Pct Auto 0.0 /100WBC (0.0-0.2); PH 6.0 (5.0-9.0); Platelet Count 127 X10*3/uL (160-400); Red Blood Count 4.54 X10*6/uL (4.60-5.80); Specific Gravity - Urine 1.020 (1.005-1.025); UMIC TRIGGER UACC YES; White Blood Count 9.7 X10*3/uL (4.8-10.8)
[2025-02-08 13:54] LABS: Alanine Aminotransferase 33 U/L (0-40); Albumin Level 4.4 g/dL (3.5-5.0); Alkaline Phosphatase 77 U/L (39-117); Anion Gap 12 (12-20); Aspartate Amino Transferase 24 U/L (5-37); Blood Urea Nitrogen 12 mg/dL (9-16); Calcium 9.2 mg/dL (8.4-10.2); Carbon Dioxide 23 mmol/L (22-29); Chloride 108 mmol/L (96-108); Creatinine Clr Calc Pharmacy 138.3; Estimated Glomerular Filt Rate > 60; Lipase 142 U/L (8-78); Potassium 4.3 mmol/L (3.3-5.1); Sodium 139 mmol/L (135-145); Total Protein 6.9 g/dL (6.5-8.0)
--- OUTSIDE RECORDS SUMMARY | 2025-02-08 15:21 | XMS_ITS | Patient Health Record ---
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 Section Notes: Nonsmoker; occ. wine Nonsmoker; occ. wine Nonsmoker; occ. wine Nonsmoker; occ. wine Problems Problem Type SNOMED Code ICD Code Onset Dates Problem Status W/U Status Risk Notes Problem Rectal bleeding (85220772) Rectal bleeding (K62.5) Active confirmed Problem Fatty liver (757867478) Fatty liver (K76.0) Active confirmed Problem Abnormal feces (888705389) Heme positive stool (R19.5) Active confirmed Problem Diverticulosis of colon (170149601) Diverticulosis of colon (K57.30) Active confirmed Plan Of Treatment Pending Test Test Name Order Date LIVER PROFILE 10/26/2012 Future Test Test Name Order Date COLONOSCOPY 07/07/2015 COLONOSCOPY 11/18/2021 Insurance Providers Payer Name Payer Address Payer Phone Subscriber Number Group Number Insured Name Patient Relationship to Insured Coverage Start Date Coverage End Date [facility] [address] [place] [address] [id number] PEPITO GUAN Self - patient is the insured Medical (General) History Medical History History ICD Code EGD 08-26-2010--normal Negative colonoscopy in 01/14 007 except diverticulosis and internal hemorrhoids Hyperlipidemia Hypertension Denies MD,DM,CVA,Lung disease,renal dise ase Hospitalizations for abdomin al [...]
--- OUTSIDE RECORDS SUMMARY | 2025-02-08 15:21 | XMS_ITS | Clinical Summary ---
Author Organization [facility] Address [address] [place] [address] Phone Care Team Providers Care Batter Depositor Name Role Phone Ric Nelson Gregory WYATT Primary Care Provider [phone] Allergies No known active allergies Encounters Date Type Department Care Team Description 11/28/2024 9:15 AM EDT Office Visit [facility] [address] [phone] Ten Clements DPM Dermatophytosis of nail (Primary [...] Upcoming Encounters Date Type Department Care Team ([facility] st Contact Info) Description 03/03/2025 2:00 PM EST Office Visit [facility] [address] [phone] Ten Clements DPM [address] [phone] Health Maintenance Due Date Last Done Comments [...] age to complete this topic Insurance MEDICARE [facility] Care Teams Batter Depositor Relationship Specialty Start Date End Date Ric Nelson FNP [address] [place] [address] [place] [address] PCP - General Family Medicine 08/29/24
[2025-02-08] MEDS: iohexoL 350 MG/ML 100 ML INFUS..BTL IV (16:24)
[2025-02-08] MEDS: metroNIDAZOLE/NS 500 MG/100 ML PIGGYBACK 100 MG IV (17:53)
[2025-02-08] MEDS: Hum Prothrombin Cplx(PCC)4Fact 2,000 UNIT in Container,Empty 0 ML 480 UNIT IV (18:38)
--- NOTE | 2025-02-08 18:45 | PC.NURSE ---
Pt reporting severe lower ABD pain, diarrhea earlier today. Reporting this has been ongoing for past few days but significantly worsened today. Alert and oriented, breathing even and unlabored IV: bilat 20G Plan: surgical consult. IV ABX DX: Appendicitis On blood thinners, last took this morning. Last intake around 1 pm today, small meal
--- NOTE | 2025-02-08 20:42 | PM.HPGS ---
History of Present Illness History of Present Illness Date of Service: 02/08/25 Chief complaint: lower abd pain Narrative: Kem Garibay is a 69 year old male presents with a several day history of abdominal pain that gradually localized to the right lower quadrant and intensified. He denies any fevers chills nausea or vomiting. He presented herself to the emergency department here at [facility] where evaluation included radiographic interrogation of the forearm a CT scan of his abdomen and pelvis that was indicative of uncomplicated appendicitis. Past surgical history significant for laparoscopic cholecystectomy. Review of Systems Review of Systems: Yes all other systems are reviewed and are negative FOR[facility]LY [facility] Past Medical History Medical History Congestive heart failure LFT elevation Left bundle branch block Cardiomyopathy Annual physical exam Paroxysmal atrial fibrillation Obesity (BMI 30-39.9) Cancer of oropharynx Anxiety Erectile dysfunction Vitamin D deficiency Atrial fibrillation Fatty liver Hypercholesterolemia Hypertension Family History Family History Father Lung cancer Mother Diabetes Brother Substance abuse Surgical History Surgical History History of implantable cardioverter-defibrillator (ICD) insertion History of tonsillectomy Hx of cholecystectomy History of bilateral knee arthroplasty History of cardioversion Hx of knee surgery Social History Social History Housing: House Alcohol intake: current Alcohol intake frequency: holidays/special occasions only Comment: 2 x a week 2-3 drinks Patient Tobacco Use Status: Never used Tobacco Smoked in Last 30 Days: No e-Cigarette/Vaping Use: Never Used Second Hand Smoke Exposure: No Use of substances other than those prescribed or required for medical reasons: No Advance Directives: No Advance Directives Information Provided: No Do you have a plan to hurt others: No Plan service: Yes Current occupational status: employed Cognitive needs: No Hearing needs: No Vision needs: No Meds Allergies Allergy/AdvReac Type Severity Reaction Status Date / Time No Known Allergies Allergy Verified 02/08/25 12:58 Home Medications ?Medication ?Instructions ?Recorded ?Confirmed ?Last Taken ?Type coenzyme Q10 200 mg capsule (Co 400 mg PO DAILY 10/12/21 01/28/25 03/29/22 History Q-10) clotrimazole 1 % topical cream appl topical BID 01/28/25 01/28/25 Unknown History Physical Exam Vital Signs: Vital Signs: Last Vital Signs Temp 99.0 F 02/08/25 19:13 Pulse 115 H 02/08/25 19:37 Resp 22 H 02/08/25 19:37 BP 132/80 02/08/25 19:37 Pulse Ox 92 02/08/25 19:37 O2 Del Method Nasal Cannula 02/08/25 19:37 O2 Flow Rate 2 02/08/25 19:37 BMI result Body Mass Index 36.6 Const: General: cooperative and ill appearing Nutritional Appearance: obese morbidly obese Orientation/consciousness: oriented to person, oriented to place and oriented to time HEENT: Head: Yes normal to inspection, Yes normocephalic and Yes atraumatic Ears: hearing grossly normal bilaterally General nose exam: Normal external nose present Eyes: General: appearance normal, both eyes and all related structures Neck: Neck: Yes normal visual inspection Chest: Chest palpation & inspection: normal inspection of the chest Resp: Effort & Inspection: normal respiratory effort and able to speak in complete sentences Cardio: Rate: regular rate Rhythm: regular rhythm GI: Other: Morbidly obese slightly distended but the patient reports that this is his baseline. Focal tenderness to palpation of the right lower quadrant. Mild discomfort to palpation throughout the entire abdomen. Scars consistent with past surgical history of laparoscopic cholecystectomy. Skin: General skin exam: no rashes or lesions noted Neuro: General: oriented to person, oriented to place and oriented to time Results Results Labs: Short CBC 02/08/25 Range/Units 13:23 WBC 9.7 (4.8-10.8) X10*3/uL Hgb 14.3 (14.0-18.0) g/dl Hct 42.2 (42.0-52.0) % Plt Count 127 L (160-400) X10*3/uL BMP 02/08/25 13:23 Sodium 139 Potassium 4.3 Chloride 108 Carbon Dioxide 23 BUN 12 Creatinine 0.72 Calcium 9.2 Liver Function 02/08/25 Range/Units 13:23 Total Bilirubin 1.0 (0.0-1.0) mg/dL AST 24 (5-37) U/L ALT 33 (0-40) U/L Alkaline Phosphatase 77 (39-117) U/L Albumin 4.4 (3.5-5.0) g/dL Urine 02/08/25 Range/Units 13:23 Urine Color Yellow Urine Appearance Clear Urine pH 6.0 (5.0-9.0) Ur Specific [place] 1.020 (1.005-1.025) Urine Protein Negative (Neg-Trace) mg/dL Urine Glucose (UA) Negative (Negative) mg/dL Assessment and Plan (1) Appendicitis: Qualifiers: Appendicitis type: acute appendicitis Acute appendicitis type: unspecified acute appendicitis type Qualified Code(s): K35.80 - Unspecified acute appendicitis Status: Acute Plan Offered the patient intervention in the form of laparoscopic possible open cholecystectomy and I reviewed with them the risks involved with such an endeavor. These include but are not limited to the risk of bleeding the risks infection the risk of damage to surrounding structures risk of chronic pain the risk of unsightly scarring the risk of the appendiceal stump leak the risk of conversion to an open procedure and the risk that he might need further operations in the future I reviewed with him in detail. I told him that the Kcentra had been completed which assisted us with operative management of any potential bleeding however there is still an elevated risk of this. Patient indicated that he understood. He told me that he considered his options. He told me that he understood and accepted the risks with surgery and still wished to proceed with operative intervention. Quality Stroke Does the patient have a stroke diagnosis?: No VTE Prior VTE?: No VTE Risk Level:: Surgical - moderate VTE Device Contraindication: N/A - Device Ordered VTE Drug Contraindication: N/A - Med Ordered Procedures Date of Service Date of Service: 02/08/25
--- NOTE | 2025-02-08 21:46 | HO.ANESPROP2 ---
HPI - Anesthesia Eval Consult details Narrative: Acute Appendicitis PMFSH Active Problems Active Problems: All Active Problems Appendicitis (Acute) Acute appendicitis (Acute) Onychomycosis (Acute) Morbid obesity (Acute) Fatty liver (Acute) Tinea pedis (Acute) Annual physical exam (Acute) COVID-19 virus infection (Acute) SHAR (obstructive sleep apnea) (Acute) Cardiomyopathy (Acute) Thrombocytopenia (Acute) First degree AV block (Acute) Erectile dysfunction (Acute) LBBB (left bundle branch block) (Acute) Hypothyroid (Acute) Vitamin B12 deficiency (Acute) Mass on back (Acute) Biventricular ICD (implantable cardioverter-defibrillator) in place (Acute) Paroxysmal atrial fibrillation (Acute) Cancer of oropharynx (Acute) Obesity (BMI 30-39.9) (Acute) Type 2 diabetes mellitus with hyperglycemia (Acute) Hypercholesterolemia (Acute) Hypertension (Acute) Past Medical History Medical History Congestive heart failure LFT elevation Left bundle branch block Cardiomyopathy Annual physical exam Paroxysmal atrial fibrillation Obesity (BMI 30-39.9) Cancer of oropharynx Anxiety Erectile dysfunction Vitamin D deficiency Atrial fibrillation Fatty liver Hypercholesterolemia Hypertension Family History Family History Father Lung cancer Mother Diabetes Brother Substance abuse Family history of problems with anesthesia: No Surgical History Surgical History History of implantable cardioverter-defibrillator (ICD) insertion History of tonsillectomy Hx of cholecystectomy History of bilateral knee arthroplasty History of cardioversion Hx of knee surgery History of Problems with Anesthesia: No Social History Social History Housing: House Alcohol intake: current Alcohol intake frequency: holidays/special occasions only Comment: counts correct Patient Tobacco Use Status: Never used Tobacco e-Cigarette/Vaping Use: Never Used Second Hand Smoke Exposure: No service: Yes Current occupational status: employed Cognitive needs: No Hearing needs: No Vision needs: No Meds Allergies Allergy/AdvReac Type Severity Reaction Status Date / Time No Known Allergies Allergy Verified 02/08/25 12:58 Home Medications ?Medication ?Instructions ?Recorded ?Confirmed ?Last Taken ?Type coenzyme Q10 200 mg capsule (Co 400 mg PO DAILY 10/12/21 01/28/25 03/29/22 History Q-10) clotrimazole 1 % topical cream appl topical BID 01/28/25 01/28/25 Unknown History Exam Height,Weight and Vital Signs: Height 6 ft 1 in Weight 125.8 kg Last Vital Signs Temp 99.0 F 02/08/25 19:13 Pulse 115 H 02/08/25 19:37 Resp 22 H 02/08/25 19:37 BP 132/80 02/08/25 19:37 Pulse Ox 92 02/08/25 19:37 O2 Del Method Nasal Cannula 02/08/25 19:37 O2 Flow Rate 2 02/08/25 19:37 Pertinent Lab Results Pertinent Lab Results: Laboratory Tests 02/08/25 02/08/25 13:23 17:46 WBC 9.7 RBC 4.54 L Hgb 14.3 Hct 42.2 MCV 93.0 MCH 31.5 MCHC 33.9 RDW 12.4 Plt Count 127 L MPV 8.7 L Immature Gran % (Auto) 0.2 Neut % (Auto) 80.2 H Lymph % (Auto) 11.4 L Barton % (Auto) 6.6 Eos % (Auto) 1.4 Baso % (Auto) 0.2 Lymph # (Auto) 1.1 L [place] # (Auto) 0.6 Eos # (Auto) 0.1 Baso # (Auto) 0.0 Abs Immat Gran (auto) 0.02 Absolute Neuts (auto) 7.8 Absolute Nucleated RBC 0.000 Nucleated RBC % (auto) 0.0 Sodium 139 Potassium 4.3 Chloride 108 Carbon Dioxide 23 Anion Gap 12 BUN 12 Creatinine 0.72 Estim Creat Clear Calc 138.3 Estimated GFR > 60 Random Glucose 143 H Lactic Acid 1.1 Calcium 9.2 Total Bilirubin 1.0 AST 24 ALT 33 Alkaline Phosphatase 77 Total Protein 6.9 Albumin 4.4 Lipase 142 H Urine Color Yellow Urine Appearance Clear Urine pH 6.0 Ur Specific [place] 1.020 Urine Protein Negative Urine Glucose (UA) Negative Urine Ketones Negative Urine Blood Trace H Urine Nitrite Negative Ur Leukocyte Esterase Trace H Urine RBC 3-5 H Urine WBC 0-5 Ur Squamous Epith Cells 0-2 Urine Bacteria None Seen Hyaline Casts 0-2 Airway Mallampati Class: III TM Dist: >3cm Neck ROM: Full Loose/Missing/Broken Teeth: No Heart: IRRR Lungs: CTA Assessment and Plan Assessment Anesthesia Assessment: Anesthesia Plan Discussed Final Anesthetic Review Family History of Problems with Anesthesia: No History of Problems with Anesthesia: No NPO: Yes ASA Class: III and Emergency Final Preanesthetic Review: No Changes in Pt Med Stat, Meds/Allgs Chart Reviewed, Consent Obtained/Reviewed and Anes Risks/Benef Reviewed Patient Risk: Intermediate Procedure Risk: Intermediate Anesthetic Plan Anesthetic Plan: GA Disposition: Standard PACU
--- NOTE | 2025-02-08 22:28 | PC.NURSE ---
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
[2025-02-09] VITALS (14 sets, daily range): BP systolic 106–170; BP diastolic 56–79; PULSE 89–111; RESP 17–20; TEMP 36.1–37.2; O2SAT 90–95; BMI 37.4
--- NOTE | 2025-02-09 00:18 | P.OP_ITS ---
Operative Note Operative Note Date of Service: 02/09/25 Narrative: Preoperative diagnosis: Acute appendicitis Postoperative diagnosis: Perforated appendicitis Procedure performed: Laparoscopic appendectomy Surgeon: Philippe Hernandez MD Specimen: Appendix Findings: Perforated appendicitis with periappendicitis Anesthesia: GETA Blood Loss: Minimal The patient was brought to the operating room and placed supine on the table. The arms and legs were cushioned appropriately and Venodyne boots were cycled. The patient's abdomen was then prepped and draped in the standard sterile fashion. After this approximately 20 cc of Marcaine with epinephrine were infused in the skin and soft tissue in the infraumbilical region of the patient's abdomen. Through this locally anesthetized site disturbances with created with a 11. Blade following Grace's lines of the skin. It was carried down with a combination of blunt sharp dissection to the level of the umbilical root which was grasped elevated exposing the median raphe. A stab incision was then created the median raphe and gently spread with a Schnidt clamp allowing access to the peritoneal cavity. A 12 mm trocar port was then placed and CO2 gas was insufflated to create a pneumoperitoneum. Eventually this had to be upsized to 15 mm port. Once the abdominal pressure reached approximately 1 5 mmHg the intra-abdominal contents were surveyed with the laparoscope. There is no evidence of injury from placement of either local anesthetic or to the laparoscopic trocar port. Two more 5 mm ports were placed via separate stab incisions under direct observation of the laparoscope. They were in the suprapubic region and in the left lower quadrant. The patient was then placed in Trendelenburg position with his left side down. An erythematous and edematous vermiform appendix was discovered in normal anatomic location coming off the base of the cecum. It was partially mobilized from surrounding soft tissue attachments with the Sonicision device and medialized from lateral attachments to the peritoneal cavity. It was noted to have a perforation near the base with significant amount of periappendicitis and a small amount of stool spillage in the abdomen. This was all policed with the suction irrigation device. The appendiceal mesentery was carefully taken down with the Sonicision device. This was done with caution as he adhesions to the appendiceal mesentery were quite [place] and tenacious.. Once the appendix was completely skeletonized down to the base it was elevated and a single firing of an Endo-GARTH universal black load 45 mm stapler was fired across a small part of the cecum which was attached to the base of the appendix ensuring that the perforation was included in the specimen. There was no impingement of the staple line upon the terminal ileum or the region of the ileocecal valve. We used a black load because the tissues here were healthy but edematous and thickened. The staple line was inspected and found to be completely intact with no bleeding or gaps or openings. The appendix was then placed in Endo-Catch retrieval bag and delivered out of the patient's abdomen and passed off table as a specimen. We used multiple interrupted 2-0 silk sutures in a [id number] fashion to imbricate pericecal fatty tissue over the staple line to completely cover and protect it. This pericecal fatty tissue was well vascularized and healthy and provided an excellent extra biologic patch over the intact staple line. We then used copious amounts of warm irrigation to wash out the patient's abdomen and pelvis. Final laparoscopic surveillance revealed no evidence of hemorrhage or visceral injury or any other pathology. A 15 Uzbek fluted drain was brought in through the suprapubic port and laid along the right pericolic gutter as well as the base of the cecum and down to the p elvic brim. It was affixed to the skin with a single 2-0 nylon drain stitch. All the trocar ports were then removed under careful observation of the laparoscopic camera. The fascia underlying the infraumbilical port was closed using 0 Polysorb on a UR 6 needle. All of the incisions were closed with mario as the case was felt to be contaminated due to the perforated hollow viscus.. Sterile occlusive dressings were applied. The patient tolerated procedure well, was recovered from anesthesia and taken to the recovery room in good condition. It should be noted that the sponge instrument needle counts were correct in the case and that I directly performed all aspects of the case. Also discussed the details case with the patient afterward.
[2025-02-09] MEDS: Dextrose 5 % and 0.45 % NaCl 1,000 ML 100 ML IVCONT ×2 (01:26→12:38)
[2025-02-09 06:18] LABS: Hematocrit 38.7 % (42.0-52.0); Hemoglobin 13.0 g/dl (14.0-18.0); Mean Corpuscular HGB Conc 33.6 g/dl (31.0-36.0); Mean Corpuscular Hemoglobin 32.1 pg (27.0-33.0); Mean Corpuscular Volume 95.6 fL (80.0-98.0); NRBC Abs Auto 0.000 X10*3/uL (0.0-0.012); NRBC Pct Auto 0.0 /100WBC (0.0-0.2); Platelet Count 109 X10*3/uL (160-400); Red Blood Count 4.05 X10*6/uL (4.60-5.80); White Blood Count 12.0 X10*3/uL (4.8-10.8)
[2025-02-09] MEDS: 0.9 % Sodium Chloride Flush 3 ML SYRINGE IVFLUSH ×3 (08:55→20:36)
--- NOTE | 2025-02-09 09:02 | PHA.MEDREC ---
Addendum entered by Elyse Hopkins [facility] 02/09/25 13:25: Patients arrived with patients phone. Patient had a list of his medications on his device. Med rec is now completed. Addendum entered by Elyse Hopkins [facility] 02/09/25 13:09: This [facility] I have also send a fax x 2. Waiting for reply. May have to pass this to [facility] Original Note: Pharmacy Consult ? Medication Reconciliation Pharmacy has attempted the medication reconciliation. Spoke with patient who was able to confirm some of his medications. There are pharmacy claims only for Mounjaro, metoprolol, clotrimazole. [facility] for [facility]. Waiting on fax back at this time.
--- NOTE | 2025-02-09 13:11 | HO.POSTANES ---
Post Anesthesia Evaluation Post Anesthesia Evaluation Date of Service: 02/09/25 Vital Signs: Vital Signs Temp Pulse Resp BP Pulse Ox O2 Del Method O2 Flow Rate 02/09/25 08:00 97.0 F 90 18 141/67 H 94 Room Air 02/09/25 03:41 98.3 F 95 20 116/60 95 Nasal Cannula 2 Anesthesia: General Endotracheal-GETA Mental Status: Awake Pain Control: Satisfactory Nausea/Vomiting: None Hydration: Adequate Anesthesia-Related Issues: No Anes. Related Issues
--- NOTE | 2025-02-09 13:49 | HO.PM.IMCN ---
History of Present Illness Data of Consult Service Date: 02/09/25 Requesting physician: Philippe Hernandez Primary Care Provider: Mario Dickerson MD [facility] Reason for consult: Restart home medications This is a 69-year-old male with history of paroxysmal atrial fibrillation on Eliquis, cardiomyopathy status post ICD, hypothyroidism, hypertension, hyperlipidemia, SHRA on CPAP who presented to the emergency department with abdominal pain and was found to have acute appendicitis. He was taken to surgery overnight. The hospitalists were asked to see him in consultation for assistance in resuming his baseline medications. Today he reports he is recovering well from surgery. He denies shortness of breath or chest pain. Review of Systems Review of Systems: Yes all other systems are reviewed and are negative Constitutional: Constitutional: Denies chills and Denies fever(s) Cardiovascular: Cardiovascular: Denies chest pain and Denies palpitations Respiratory: Respiratory: Denies cough Endocrine: Endocrine: Denies palpitations [facility] Medical History Congestive heart failure LFT elevation Left bundle branch block Cardiomyopathy Annual physical exam Paroxysmal atrial fibrillation Obesity (BMI 30-39.9) Cancer of oropharynx Anxiety Erectile dysfunction Vitamin D deficiency Atrial fibrillation Fatty liver Hypercholesterolemia Hypertension Family History Father Lung cancer Mother Diabetes Brother Substance abuse Surgical History History of implantable cardioverter-defibrillator (ICD) insertion History of tonsillectomy Hx of cholecystectomy History of bilateral knee arthroplasty History of cardioversion Hx of knee surgery Social History Household Members: Spouse Housing: House Alcohol intake: current Alcohol intake frequency: holidays/special occasions only Comment: counts correct Patient Tobacco Use Status: Never used Tobacco Smoked in Last 30 Days: No e-Cigarette/Vaping Use: Never Used Second Hand Smoke Exposure: No Use of substances other than those prescribed or required for medical reasons: No Currently Displaying Signs/Symptoms of Drug Intoxication Withdrawal: No Have you been hit, kicked, punched, or otherwise hurt by someone within the past year? If so, by whom?: No Do you feel safe in your current relationship?: Yes Is there a partner from a previous relationship who is making you feel unsafe now?: No Are you made to feel afraid or neglected: No Advance Directives: No Advance Directives Information Provided: No Do you have a plan to hurt others: No Plan Recently lost weight without trying: No Eating poorly because of decreased appetite: No service: Yes Current occupational status: employed Cognitive needs: No Hearing needs: No Vision needs: No Meds Allergies Allergy/AdvReac Type Severity Reaction Status Date / Time No Known Allergies Allergy Verified 02/08/25 12:58 Active Medications: Current Medications Acetaminophen (Acetaminophen 325 Mg Tablet) 650 mg PO Q6H PRN PRN Reason: Pain, Mild 1-3,fever,headache Amoxicillin/Clavulanate Potassium (Amoxicillin/Potassium Clav 875 Mg Tablet) 875 mg PO Q12H [facility] Last Admin: 02/09/25 13:42 Dose: 875 mg Calcium Carbonate (Calcium Carbonate 750 Mg Tab.Chew) 750 mg PO Q4H PRN PRN Reason: Heartburn Docusate Sodium (Docusate Sodium 100 Mg Capsule) 100 mg PO BID [facility] Last Admin: 02/09/25 08:55 Dose: 100 mg Heparin Sodium (Porcine) (Heparin Sodium,Porcine 5,000 Unit/Ml Vial) 5,000 unit SUBCUT Q12H [facility] Last Admin: 02/09/25 01:28 Dose: 5,000 unit Hydromorphone HCl (Hydromorphone Hcl 0.5 Mg/0.5 Ml Syringe) 0.5 mg IVPUSH Q4H PRN; Protocol PRN Reason: Pain, Severe (Pain Scale 7-10) Last Admin: 02/09/25 10:12 Dose: 0.5 mg Magnesium Hydroxide (Milk Of Magnesia 30 Ml Oral.Susp) 30 ml PO DAILY PRN PRN Reason: Constipation Melatonin (Melatonin 3 Mg Tablet) 6 mg PO BEDTIME PRN PRN Reason: Insomnia Metronidazole (Metronidazole 500 Mg Tablet) 500 mg PO Q8H [facility] Last Admin: 02/09/25 13:42 Dose: 500 mg Naloxone HCl (Naloxone Hcl 0.4 Mg/Ml Vial) 0.04 mg IVPUSH Q5M PRN PRN Reason: Excessive sedation or RR < 8 Ondansetron HCl (Ondansetron Hcl 4 Mg/2 Ml Vial) 4 mg IVPUSH Q8H PRN PRN Reason: Nausea and Vomiting Sodium Chloride (0.9 % Sodium Chloride Flush 3 Ml Syringe) 3 ml IVFLUSH QSHIFT [facility] Last Admin: 02/09/25 08:55 Dose: 3 ml Temazepam (Temazepam 15 Mg Capsule) 15 mg PO BEDTIME PRN PRN Reason: Insomnia Home Medications ?Medication ?Instructions ?Recorded ?Confirmed ?Last Taken ?Type coenzyme Q10 200 mg capsule (Co 400 mg PO DAILY 10/12/21 02/09/25 03/29/22 History Q-10) clotrimazole 1 % topical cream 1 appl topical BID 01/28/25 02/09/25 Unknown History tirzepatide 10 mg/0.5 mL 10 mg subcut FR 02/09/25 02/09/25 Unknown History subcutaneous pen injector (Imani) Physical Exam Vital Signs and Narrative: Vital Signs: Last Vital Signs Temp 97.0 F 02/09/25 08:00 Pulse 90 02/09/25 08:00 Resp 18 02/09/25 08:00 BP 141/67 H 02/09/25 08:00 Pulse Ox 94 02/09/25 08:00 O2 Del Method Room Air 02/09/25 08:00 O2 Flow Rate 2 02/09/25 03:41 BMI result Body Mass Index 37.4 Const: General: cooperative, comfortable, no acute distress, alert and awake Nutritional Appearance: obese Orientation/consciousness: patient oriented x3 Resp: Effort & Inspection: normal respiratory effort, able to speak in complete sentences, no respiratory distress and no use of accessory muscles Auscultation: clear to auscultation bilaterally Cardio: Rate: regular rate Neuro: General: patient oriented x3, moves all extremities and CN's II-XI intact bilaterally Results Labs 02/09/25 05:44 02/08/25 13:23 Labs: Laboratory Results - last 24 hr 02/08/25 02/08/25 02/09/25 13:23 17:46 05:44 MCV 95.6 MCH 32.1 MCHC 33.6 RDW 12.6 Plt Count 109 L MPV 8.9 L Absolute Nucleated RBC 0.000 Nucleated RBC % (auto) 0.0 Anion Gap 12 Estim Creat Clear Calc 138.3 Estimated GFR > 60 Random Glucose 143 H Lactic Acid 1.1 Calcium 9.2 Total Bilirubin 1.0 AST 24 ALT 33 Alkaline Phosphatase 77 Total Protein 6.9 Albumin 4.4 Lipase 142 H Assessment and Plan (1) Paroxysmal atrial fibrillation: Status: Acute (2) Type 2 diabetes mellitus with hyperglycemia: Status: Acute Plan This is a 69-year-old male with history of cardiomyopathy status post ICD placement, pAF on Eliquis, HTN, HLD, T2DM on Monjaro, SHAR on CPAP who presented to the emergency department found to have acute appendicitis status post appendectomy acute appendicitis management per surgical team pAF resume multaq, metoprolol Resume Eliquis when safe from surgical perspective Hypertension Resume losartan If BP remains stable can add back Norvasc Morbid obesity BMI 37.4 on mounjaro and has had significant weight loss Hypothyroidism Resume Synthroid SHAR CPAP Thank you for allowing us to participate in the care of this patient. There were no acute medical problems at this time, hospitalist service will sign off.
--- NOTE | 2025-02-09 17:44 | P.PNGS_ITS ---
Subjective Subjective Date of Service: 02/09/25 Interval history: Patient reports he feels ?better?. Denies any fevers chills nausea or vomiting. Has had no gas or bowel movement but is tolerating clear liquids without difficulty. Physical Exam 2 Vital Signs: Vital Signs: Last Vital Signs Temp 98.6 F 02/09/25 16:00 Pulse 96 02/09/25 16:00 Resp 18 02/09/25 16:00 BP 130/79 02/09/25 16:00 Pulse Ox 92 02/09/25 16:00 O2 Del Method Room Air 02/09/25 16:00 O2 Flow Rate 2 02/09/25 03:41 BMI result Body Mass Index 37.4 GI: Other: Soft morbidly obese nontender nondistended suprapubic drain with serosanguineous fluid. Appropriate tenderness for this stage of his postoperative convalescence. Objective Data Active Medications Acetaminophen (Acetaminophen 325 Mg Tablet) 650 mg PO Q6H PRN PRN Reason: Pain, Mild 1-3,fever,headache Amoxicillin/Clavulanate Potassium (Amoxicillin/Potassium Clav 875 Mg Tablet) 875 mg PO Q12H [facility] Last Admin: 02/09/25 13:42 Dose: 875 mg Documented By: URBANO Atorvastatin Calcium (Atorvastatin Calcium 10 Mg Tablet) 10 mg PO DAILY [facility] Calcium Carbonate (Calcium Carbonate 750 Mg Tab.Chew) 750 mg PO Q4H PRN PRN Reason: Heartburn Docusate Sodium (Docusate Sodium 100 Mg Capsule) 100 mg PO BID [facility] Last Admin: 02/09/25 08:55 Dose: 100 mg Documented By: URBANO Dronedarone (Dronedarone Hcl 400 Mg Tablet) 400 mg PO BID [facility] Last Admin: 02/09/25 14:57 Dose: 400 mg Documented By: FRANK Heparin Sodium (Porcine) (Heparin Sodium,Porcine 5,000 Unit/Ml Vial) 5,000 unit SUBCUT Q12H [facility] Last Admin: 02/09/25 14:00 Dose: 5,000 unit Documented By: URBANO Hydromorphone HCl (Hydromorphone Hcl 0.5 Mg/0.5 Ml Syringe) 0.5 mg IVPUSH Q4H PRN; Protocol PRN Reason: Pain, Severe (Pain Scale 7-10) Last Admin: 02/09/25 14:57 Dose: 0.5 mg Documented By: FRANK Levothyroxine Sodium (Levothyroxine Sodium 175 Mcg Tablet) 175 mcg PO DAILY@0600 [facility] Losartan Potassium (Losartan Potassium 50 Mg Tablet) 100 mg PO DAILY [facility]; Protocol Magnesium Hydroxide (Milk Of Magnesia 30 Ml Oral.Susp) 30 ml PO DAILY PRN PRN Reason: Constipation Melatonin (Melatonin 3 Mg Tablet) 6 mg PO BEDTIME PRN PRN Reason: Insomnia Metoprolol Succinate (Metoprolol Succinate Er 100 Mg Tab.Er.24h) 100 mg PO DAILY [facility]; Protocol Metronidazole (Metronidazole 500 Mg Tablet) 500 mg PO Q8H [facility] Last Admin: 02/09/25 13:42 Dose: 500 mg Documented By: URBANO Naloxone HCl (Naloxone Hcl 0.4 Mg/Ml Vial) 0.04 mg IVPUSH Q5M PRN PRN Reason: Excessive sedation or RR < 8 Non-Formulary Medication (Pilocarpine Hcl) 5 mg PO BID [facility] Ondansetron HCl (Ondansetron Hcl 4 Mg/2 Ml Vial) 4 mg IVPUSH Q8H PRN PRN Reason: Nausea and Vomiting Sodium Chloride (0.9 % Sodium Chloride Flush 3 Ml Syringe) 3 ml IVFLUSH QSHIFT [facility] Last Admin: 02/09/25 14:03 Dose: 3 ml Documented By: URBANO Temazepam (Temazepam 15 Mg Capsule) 15 mg PO BEDTIME PRN PRN Reason: Insomnia Labs 02/09/25 05:44 02/08/25 13:23 Labs: Laboratory Results - last 24 hr 02/08/25 02/09/25 17:46 05:44 MCV 95.6 MCH 32.1 MCHC 33.6 RDW 12.6 Plt Count 109 L MPV 8.9 L Absolute Nucleated RBC 0.000 Nucleated RBC % (auto) 0.0 Lactic Acid 1.1 Procedures Date of Service Date of Service: 02/09/25 Progress Note: A&P Assessment and plan (1) Acute appendicitis: Status: Acute Plan I told the patient I felt he was doing well and he agreed. We will continue antibiotic therapy for the next 48 hours and wait for return of bowel function. The plan for his care was described to him in detail and he indicated he understood and wished to proceed. Time Spent With Patient Time: Total time managing care of this patient today ___30_ minutes. Quality Stroke Does the patient have a stroke diagnosis?: No VTE Prior VTE?: No VTE Risk Level:: Surgical - moderate VTE Device Contraindication: N/A - Device Ordered VTE Drug Contraindication: N/A - Med Ordered
[2025-02-10 00:17] VITALS: BP 139/80; PULSE 96; RESP 19; TEMP 36.9; O2SAT 91
[2025-02-10] MEDS: Milk of Magnesia 30 ML ORAL.SUSP PO (03:26)
[2025-02-10 03:48] VITALS: BP 114/66; PULSE 95; RESP 18; TEMP 37.2; O2SAT 92
[2025-02-10 03:52] VITALS: PULSE 100; RESP 18; O2SAT 91
[2025-02-10 07:37] VITALS: BP 148/71; PULSE 99; RESP 16; TEMP 36.7; O2SAT 92
--- NOTE | 2025-02-10 07:46 | PM.PNGS ---
Subjective Subjective Date of Service: 02/10/25 Interval history: Feels better this morning because he has started to pass more flatus. Less crampy pain this morning, reports some pain at his sides. Was OOB and ambulating yesterday, sat in recliner. Has been tolerating clear liquids, had some nausea yesterday but no further. Belching frequently. Physical Exam Vital Signs: Vital Signs: Last Vital Signs Temp 98.1 F 02/10/25 07:37 Pulse 99 02/10/25 07:37 Resp 16 02/10/25 07:37 BP 148/71 H 02/10/25 07:37 Pulse Ox 92 02/10/25 07:37 O2 Del Method Room Air 02/10/25 07:37 O2 Flow Rate 2 02/09/25 03:41 BMI result Body Mass Index 37.4 Const: General: comfortable, no acute distress and alert Orientation/consciousness: patient oriented x3 Resp: Effort & Inspection: normal respiratory effort, able to speak in complete sentences and not tachypneic GI: Other: mildly distended corpulent abdomen dressings clean and intact grenade with serosanguineous drainage, some sediment, drain milked mild diffuse tenderness Palpation (GI): no guarding and not rigid Percussion: Yes tympanic to percussion Skin: General skin exam: no rashes or lesions noted Neuro: General: patient oriented x3 and moves all extremities Objective Data Active Medications Acetaminophen (Acetaminophen 325 Mg Tablet) 650 mg PO Q6H PRN PRN Reason: Pain, Mild 1-3,fever,headache Amoxicillin/Clavulanate Potassium (Amoxicillin/Potassium Clav 875 Mg Tablet) 875 mg PO Q12H [facility] Last Admin: 02/10/25 00:20 Dose: 875 mg Documented By: LORNE Atorvastatin Calcium (Atorvastatin Calcium 10 Mg Tablet) 10 mg PO DAILY [facility] Calcium Carbonate (Calcium Carbonate 750 Mg Tab.Chew) 750 mg PO Q4H PRN PRN Reason: Heartburn Docusate Sodium (Docusate Sodium 100 Mg Capsule) 100 mg PO BID [facility] Last Admin: 02/09/25 20:34 Dose: 100 mg Documented By: LORNE Dronedarone (Dronedarone Hcl 400 Mg Tablet) 400 mg PO BID [facility] Last Admin: 02/09/25 20:34 Dose: 400 mg Documented By: LORNE Heparin Sodium (Porcine) (Heparin Sodium,Porcine 5,000 Unit/Ml Vial) 5,000 unit SUBCUT Q12H [facility] Last Admin: 02/10/25 00:20 Dose: 5,000 unit Documented By: LORNE Hydromorphone HCl (Hydromorphone Hcl 0.5 Mg/0.5 Ml Syringe) 0.5 mg IVPUSH Q4H PRN; Protocol PRN Reason: Pain, Severe (Pain Scale 7-10) Last Admin: 02/10/25 03:27 Dose: 0.5 mg Documented By: LORNE Levothyroxine Sodium (Levothyroxine Sodium 175 Mcg Tablet) 175 mcg PO DAILY@0600 [facility] Last Admin: 02/10/25 05:55 Dose: 175 mcg Documented By: LORNE Losartan Potassium (Losartan Potassium 50 Mg Tablet) 100 mg PO DAILY [facility]; Protocol Magnesium Hydroxide (Milk Of Magnesia 30 Ml Oral.Susp) 30 ml PO DAILY PRN PRN Reason: Constipation Last Admin: 02/10/25 03:26 Dose: 30 ml Documented By: LORNE Melatonin (Melatonin 3 Mg Tablet) 6 mg PO BEDTIME PRN PRN Reason: Insomnia Metoprolol Succinate (Metoprolol Succinate Er 100 Mg Tab.Er.24h) 100 mg PO DAILY [facility]; Protocol Metronidazole (Metronidazole 500 Mg Tablet) 500 mg PO Q8H [facility] Last Admin: 02/10/25 05:55 Dose: 500 mg Documented By: LORNE Naloxone HCl (Naloxone Hcl 0.4 Mg/Ml Vial) 0.04 mg IVPUSH Q5M PRN PRN Reason: Excessive sedation or RR < 8 Non-Formulary Medication (Pilocarpine Hcl) 5 mg PO BID [facility] Ondansetron HCl (Ondansetron Hcl 4 Mg/2 Ml Vial) 4 mg IVPUSH Q8H PRN PRN Reason: Nausea and Vomiting Sodium Chloride (0.9 % Sodium Chloride Flush 3 Ml Syringe) 3 ml IVFLUSH QSHIFT [facility] Last Admin: 02/09/25 20:36 Dose: 3 ml Documented By: LORNE Temazepam (Temazepam 15 Mg Capsule) 15 mg PO BEDTIME PRN PRN Reason: Insomnia Labs 02/09/25 05:44 02/08/25 13:23 Microbiology Microbiology Results: Microbiology 02/08/25 17:46 Blood Culture - Preliminary Blood - Venous No growth after 24 hours. 02/08/25 17:46 Blood Culture - Preliminary Blood - Venous No growth after 24 hours. Procedures Date of Service Date of Service: 02/10/25 Progress Note: A&P Assessment and plan (1) Acute appendicitis: Status: Acute (2) S/P laparoscopic appendectomy: Status: Acute Plan POD #2 s/p lap appy for perforated appendicitis. Doing fairly well post operatively, patient has now begun to pass flatus however is distended and belching. VSS. Will keep on clear liquids until flatus more consistent. Cont antibiotics. Keep drain in place. Will cont to hold eliquis. Transition to oral analgesics in preparation for dc. Encouraged OOB/ambulation. Incentive spirometer brought to room by provider and patient educated, encouraged 10x/hr. Time Spent With Patient Time: Total time managing care of this patient today ____ minutes. Quality Stroke Does the patient have a stroke diagnosis?: No VTE Prior VTE?: No VTE Risk Level:: Surgical - moderate VTE Device Contraindication: N/A - Device Ordered VTE Drug Contraindication: N/A - Med Ordered
[2025-02-10] MEDS: Metoprolol Succinate ER 100 MG TAB.ER.24H PO (07:49)
--- NOTE | 2025-02-10 09:32 | MHC.CM.PN ---
PT LIVES WITH THEY ARE INDEPEDENT PT [facility] HOME N/S
[2025-02-10] MEDS: oxyCODONE HCl Immed Release 5 MG TABLET PO ×3 (13:26→22:32)
[2025-02-10 15:23] VITALS: BP 121/66; PULSE 84; RESP 18; TEMP 36.2; O2SAT 93
[2025-02-10 19:32] VITALS: BP 123/58; PULSE 97; RESP 18; TEMP 36.8; O2SAT 94
[2025-02-10] MEDS: 0.9 % Sodium Chloride Flush 3 ML SYRINGE IVFLUSH (20:27)
[2025-02-11] MEDS: oxyCODONE HCl Immed Release 5 MG TABLET PO ×5 (03:55→22:36)
[2025-02-11 04:00] VITALS: BP 142/65; PULSE 82; RESP 16; TEMP 36.3; O2SAT 92
--- NOTE | 2025-02-11 07:46 | PM.PNGS ---
Subjective Subjective Date of Service: 02/11/25 Interval history: Had multiple bowel movements last night, passing more flatus but also endorses persistent belching and bloating. Tolerating clear liquids without overt nausea. Has been using oxycodone for pain control with good effect. Ambulating in the room and halls. Physical Exam Vital Signs: Vital Signs: Last Vital Signs Temp 97.4 F 02/11/25 04:00 Pulse 82 02/11/25 04:00 Resp 16 02/11/25 04:00 BP 142/65 H 02/11/25 04:00 Pulse Ox 92 02/11/25 04:00 O2 Del Method Room Air 02/11/25 04:00 O2 Flow Rate 2 02/09/25 03:41 BMI result Body Mass Index 37.4 Const: General: comfortable, no acute distress and alert Orientation/consciousness: patient oriented x3 Resp: Effort & Inspection: normal respiratory effort and able to speak in complete sentences GI: Other: mildly distended soft, mild incisional tenderness Drain more serous appearing output Palpation (GI): no guarding and not rigid Percussion: Yes normal to percussion Skin: General skin exam: no rashes or lesions noted Neuro: General: patient oriented x3 and moves all extremities Objective Data Active Medications Acetaminophen (Acetaminophen 325 Mg Tablet) 650 mg PO Q6H PRN PRN Reason: Pain, Mild 1-3,fever,headache Amoxicillin/Clavulanate Potassium (Amoxicillin/Potassium Clav 875 Mg Tablet) 875 mg PO Q12H [facility] Last Admin: 02/11/25 00:20 Dose: 875 mg Documented By: LORNE Atorvastatin Calcium (Atorvastatin Calcium 10 Mg Tablet) 10 mg PO DAILY [facility] Last Admin: 02/10/25 07:49 Dose: 10 mg Documented By: JOHN Calcium Carbonate (Calcium Carbonate 750 Mg Tab.Chew) 750 mg PO Q4H PRN PRN Reason: Heartburn Docusate Sodium (Docusate Sodium 100 Mg Capsule) 100 mg PO BID [facility] Last Admin: 02/10/25 20:25 Dose: 100 mg Documented By: LORNE Dronedarone (Dronedarone Hcl 400 Mg Tablet) 400 mg PO BID [facility] Last Admin: 02/10/25 20:25 Dose: 400 mg Documented By: LORNE Heparin Sodium (Porcine) (Heparin Sodium,Porcine 5,000 Unit/Ml Vial) 5,000 unit SUBCUT Q12H [facility] Last Admin: 02/11/25 00:20 Dose: 5,000 unit Documented By: OLRNE Hydromorphone HCl (Hydromorphone Hcl 0.5 Mg/0.5 Ml Syringe) 0.5 mg IVPUSH Q4H PRN; Protocol PRN Reason: Pain, Severe (Pain Scale 7-10) Last Admin: 02/10/25 07:48 Dose: 0.5 mg Documented By: JOHN Levothyroxine Sodium (Levothyroxine Sodium 175 Mcg Tablet) 175 mcg PO DAILY@0600 [facility] Last Admin: 02/11/25 06:00 Dose: 175 mcg Documented By: LORNE Losartan Potassium (Losartan Potassium 50 Mg Tablet) 100 mg PO DAILY [facility]; Protocol Last Admin: 02/10/25 07:49 Dose: 100 mg Documented By: JOHN Magnesium Hydroxide (Milk Of Magnesia 30 Ml Oral.Susp) 30 ml PO DAILY PRN PRN Reason: Constipation Last Admin: 02/10/25 03:26 Dose: 30 ml Documented By: LORNE Melatonin (Melatonin 3 Mg Tablet) 6 mg PO BEDTIME PRN PRN Reason: Insomnia Metoprolol Succinate (Metoprolol Succinate Er 100 Mg Tab.Er.24h) 100 mg PO DAILY [facility]; Protocol Last Admin: 02/10/25 07:49 Dose: 100 mg Documented By: JOHN Metronidazole (Metronidazole 500 Mg Tablet) 500 mg PO Q8H [facility] Last Admin: 02/11/25 06:00 Dose: 500 mg Documented By: LORNE Naloxone HCl (Naloxone Hcl 0.4 Mg/Ml Vial) 0.04 mg IVPUSH Q5M PRN PRN Reason: Excessive sedation or RR < 8 Non-Formulary Medication (Pilocarpine Hcl) 5 mg PO BID [facility] Ondansetron HCl (Ondansetron Hcl 4 Mg/2 Ml Vial) 4 mg IVPUSH Q8H PRN PRN Reason: Nausea and Vomiting Last Admin: 02/10/25 22:32 Dose: 4 mg Documented By: LORNE Oxycodone HCl (Oxycodone Hcl Immed Release 5 Mg Tablet) 5 mg PO Q4H PRN PRN Reason: Pain, Moderate(Pain Scale 4-6) Last Admin: 02/11/25 03:55 Dose: 5 mg Documented By: LORNE Sodium Chloride (0.9 % Sodium Chloride Flush 3 Ml Syringe) [facility] Last Admin: 02/10/25 20:27 Dose: 3 ml Documented By: LORNE Temazepam (Temazepam 15 Mg Capsule) 15 mg PO BEDTIME PRN PRN Reason: Insomnia Labs 02/09/25 05:44 02/08/25 13:23 Microbiology Microbiology Results: Microbiology 02/08/25 17:46 Blood Culture - Preliminary Blood - Venous No growth after 48 hours. 02/08/25 17:46 Blood Culture - Preliminary Blood - Venous No growth after 48 hours. Procedures Date of Service Date of Service: 02/11/25 Progress Note: A&P Assessment and plan (1) S/P laparoscopic appendectomy: Status: Acute (2) Acute appendicitis: Status: Acute Plan POD #3 s/p lap appy for perforated appendicitis. GI function slowly returning but unfortunately has persistent bloating and belching. Abd relatively benign with mild appropriate post op tenderness, mildly distended. Drain more serous appearing this morning. Will attempt full liquids, continue increasing activity and ambulation. Cont antibiotics. Will check BMP. Hold eliquis until POD #4. Time Spent With Patient Time: Total time managing care of this patient today ____ minutes. Quality Stroke Does the patient have a stroke diagnosis?: No VTE Prior VTE?: No VTE Risk Level:: Surgical - moderate VTE Device Contraindication: N/A - Device Ordered VTE Drug Contraindication: N/A - Med Ordered
[2025-02-11 07:49] VITALS: BP 130/65; PULSE 82; RESP 16; TEMP 36.3; O2SAT 93
[2025-02-11] MEDS: Metoprolol Succinate ER 100 MG TAB.ER.24H PO (08:07)
[2025-02-11 15:37] VITALS: BP 126/65; PULSE 68; RESP 18; TEMP 36.9; O2SAT 92
[2025-02-11 19:37] VITALS: BP 131/64; PULSE 81; RESP 18; TEMP 36.8; O2SAT 92
[2025-02-11] MEDS: 0.9 % Sodium Chloride Flush 3 ML SYRINGE IVFLUSH (21:28)
[2025-02-12] VITALS: BP 135/60; PULSE 82; RESP 18; TEMP 36.3; O2SAT 93
[2025-02-12 03:56] VITALS: BP 137/77; PULSE 84; RESP 16; TEMP 36.4; O2SAT 93
[2025-02-12 07:06] VITALS: BP 133/67; PULSE 82; RESP 17; TEMP 36.6; O2SAT 94
--- NOTE | 2025-02-12 08:25 | PM.PNGS ---
Subjective Subjective Date of Service: 02/12/25 Interval history: Feels ok this morning. C/o skin irritation around his eyes. Thinks he did not wash his hands well enough after a BM and then wiped his eyes. Tolerating solid diet without nausea, vomiting. Passing flatus and continues to have BMs. Belching improved. MIld incisional pain, well controlled. OOB and ambulating without difficulty. Physical Exam Vital Signs: Vital Signs: Last Vital Signs Temp 98 F 02/12/25 07:06 Pulse 82 02/12/25 07:06 Resp 17 02/12/25 07:06 BP 133/67 02/12/25 07:06 Pulse Ox 94 02/12/25 07:06 O2 Del Method Room Air 02/12/25 07:06 O2 Flow Rate 2 02/09/25 03:41 BMI result Body Mass Index 37.4 Const: General: comfortable, no acute distress and alert Orientation/consciousness: patient oriented x3 Resp: Effort & Inspection: normal respiratory effort GI: Other: abd remains mildly distended, improved incisions clean mario intact mild incisional tenderness, RLQ drain scant serous output and removed Skin: General skin exam: no rashes or lesions noted Neuro: General: patient oriented x3 and moves all extremities Objective Data Active Medications Acetaminophen (Acetaminophen 325 Mg Tablet) 650 mg PO Q6H PRN PRN Reason: Pain, Mild 1-3,fever,headache Amoxicillin/Clavulanate Potassium (Amoxicillin/Potassium Clav 875 Mg Tablet) 875 mg PO Q12H [facility] Last Admin: 02/12/25 00:24 Dose: 875 mg Documented By: NORM Atorvastatin Calcium (Atorvastatin Calcium 10 Mg Tablet) 10 mg PO DAILY [facility] Last Admin: 02/11/25 08:08 Dose: 10 mg Documented By: JOHN Calcium Carbonate (Calcium Carbonate 750 Mg Tab.Chew) 750 mg PO Q4H PRN PRN Reason: Heartburn Docusate Sodium (Docusate Sodium 100 Mg Capsule) 100 mg PO BID [facility] Last Admin: 02/11/25 21:28 Dose: 100 mg Documented By: NORM Dronedarone (Dronedarone Hcl 400 Mg Tablet) 400 mg PO BID [facility] Last Admin: 02/11/25 21:28 Dose: 400 mg Documented By: NORM Heparin Sodium (Porcine) (Heparin Sodium,Porcine 5,000 Unit/Ml Vial) 5,000 unit SUBCUT Q12H [facility] Last Admin: 02/12/25 00:23 Dose: 5,000 unit Documented By: NORM Hydromorphone HCl (Hydromorphone Hcl 0.5 Mg/0.5 Ml Syringe) 0.5 mg IVPUSH Q4H PRN; Protocol PRN Reason: Pain, Severe (Pain Scale 7-10) Last Admin: 02/10/25 07:48 Dose: 0.5 mg Documented By: JOHN Levothyroxine Sodium (Levothyroxine Sodium 175 Mcg Tablet) 175 mcg PO DAILY@0600 [facility] Last Admin: 02/12/25 05:32 Dose: 175 mcg Documented By: NORM Losartan Potassium (Losartan Potassium 50 Mg Tablet) 100 mg PO DAILY [facility]; Protocol Last Admin: 02/11/25 08:08 Dose: 100 mg Documented By: JOHN Magnesium Hydroxide (Milk Of Magnesia 30 Ml Oral.Susp) 30 ml PO DAILY PRN PRN Reason: Constipation Last Admin: 02/10/25 03:26 Dose: 30 ml Documented By: LORNE Melatonin (Melatonin 3 Mg Tablet) 6 mg PO BEDTIME PRN PRN Reason: Insomnia Metoprolol Succinate (Metoprolol Succinate Er 100 Mg Tab.Er.24h) 100 mg PO DAILY [facility]; Protocol Last Admin: 02/11/25 08:07 Dose: 100 mg Documented By: JOHN Metronidazole (Metronidazole 500 Mg Tablet) 500 mg PO Q8H [facility] Last Admin: 02/12/25 05:32 Dose: 500 mg Documented By: NORM Naloxone HCl (Naloxone Hcl 0.4 Mg/Ml Vial) 0.04 mg IVPUSH Q5M PRN PRN Reason: Excessive sedation or RR < 8 Non-Formulary Medication (Pilocarpine Hcl) 5 mg PO BID [facility] Ondansetron HCl (Ondansetron Hcl 4 Mg/2 Ml Vial) 4 mg IVPUSH Q8H PRN PRN Reason: Nausea and Vomiting Last Admin: 02/10/25 22:32 Dose: 4 mg Documented By: LORNE Oxycodone HCl (Oxycodone Hcl Immed Release 5 Mg Tablet) 5 mg PO Q4H PRN PRN Reason: Pain, Moderate(Pain Scale 4-6) Last Admin: 02/11/25 22:36 Dose: 5 mg Documented By: NORM Sodium Chloride (0.9 % Sodium Chloride Flush 3 Ml Syringe) 3 ml IVFLUSH QSHIFT MAY Last Admin: 02/11/25 21:28 Dose: 3 ml Documented By: NORM Temazepam (Temazepam 15 Mg Capsule) 15 mg PO BEDTIME PRN PRN Reason: Insomnia Labs 02/09/25 05:44 02/08/25 13:23 Procedures Date of Service Date of Service: 02/12/25 Progress Note: A&P Assessment and plan (1) S/P laparoscopic appendectomy: Status: Acute (2) Appendicitis: Status: Acute Plan POD #4 s/p lap appy for perforated appendicitis. Doing well post op, now tolerating solid diet with good GI function. Abd remains benign with clean incisions, drain with scant serous output and removed uneventfully. Plan for dc to home today on oral antibiotics, f/u in office in 1 week. Patient comfortable with plan. Resume eliquis and all home meds at dc. Time Spent With Patient Time: Total time managing care of this patient today ____ minutes. Quality Stroke Does the patient have a stroke diagnosis?: No VTE Prior VTE?: No VTE Risk Level:: Surgical - moderate VTE Device Contraindication: N/A - Device Ordered VTE Drug Contraindication: N/A - Med Ordered
[2025-02-12] MEDS: Metoprolol Succinate ER 100 MG TAB.ER.24H PO (08:41)
[2025-02-12] MEDS: oxyCODONE HCl Immed Release 5 MG TABLET PO (08:41)
[2025-02-12] MEDS: 0.9 % Sodium Chloride Flush 3 ML SYRINGE IVFLUSH (08:42)
--- NOTE | 2025-02-12 12:38 | MHC.CM.PN ---
DP: PT HAS BEEN MEDICALLY CLEARED FOR DC HOME, NO SERVICES. PT HAS OWN RIDE HOME.
--- NOTE | 2025-02-14 12:26 | P.DS_ITS ---
DS: Providers Provider Date of admission: 02/09/25 00:02 Date of discharge: 02/12/25 Primary care physician: Mario Dickerson MD Attending physician on admission: Philippe Hernandez Consults: 02/09/25 13:20 Consult to Hospitalist Stat Comment: Consulting Provider: [facility] Hospitalists Reason For Exam: restart home meds Attending physician on discharge: Philippe Hernandez DS: Diagnosis Discharge Diagnosis (1) S/P laparoscopic appendectomy: Status: Acute (2) Appendicitis: Status: Acute DS: Summary Hospital Course Hospital Course: HPI AT ADMISSION: Kem Garibay is a 69 year old male presents with a several day history of abdominal pain that gradually localized to the right lower quadrant and intensified. He denies any fevers chills nausea or vomiting. He presented herself to the emergency department here at [facility] where evaluation included CT scan of his abdomen and pelvis that was indicative of uncomplicated appendicitis. Past surgical history significant for laparoscopic cholecystectomy. HOSPITAL COURSE: The patient was admitted to the surgical service for further treatment of the acute appendicitis. He elected to proceed with laparoscopic appendectomy. He was added onto the OR schedule for that day. He was given Kcentra preoperatively as he was on eliquis. Hospitalist consult was obtained for management of his medical comorbidities. On 02/09/25, a laparoscopic appendectomy was performed by Dr. Hernandez without complication. He was found to have perforated appendicitis with a perforation near the base with significant amount of periappendicitis and a small amount of stool spillage in the abdomen. Fluted drain was placed intraopertively. The patient tolerated the procedure well and had an uncomplicated recovery course. He remained inpatient for 4 days postoperatively for antibiotics and while awaiting return of GI function. His activity was increased and he was ambulated. He began to pass flatus and move his bowels and his diet was slowly advanced as tolerated. On POD #4, the day of discharge, he felt well and was tolerating a solid diet without nausea or vomiting, had good pain control on oral analgesics and was ambulating without difficulty. He was hemodynamically stable. His abdomen was benign with appropriate post op tenderness and clean incisions. His drain had scant serous output and was removed. His eliquis was resumed. He felt ready for discharge. He was discharged to home on 02/12/25 in stable condition on a short course of flagyl and augmentin. He is to follow up in the office in 1 week. Status at Discharge Functional status at discharge: independent ambulation Time Attestation Discharge Coordination Time (in mins): 35 Quality: Safe Use of Opioids Does Pt have an Active Cancer Diagnosis on the Problem List?: No Quality: Stroke Does the patient have a stroke diagnosis?: No Physical Exam Vital Signs: Vital Signs: Last Vital Signs Temp 98 F 02/12/25 07:06 Pulse 82 02/12/25 07:06 Resp 17 02/12/25 07:06 BP 133/67 02/12/25 07:06 Pulse Ox 94 02/12/25 07:06 O2 Del Method Room Air 02/12/25 07:06 O2 Flow Rate 2 02/09/25 03:41 BMI result Body Mass Index 37.4 Const: General: comfortable, no acute distress and alert Orientation/consciousness: patient oriented x3 Resp: Effort & Inspection: normal respiratory effort GI: Other: soft, mildly distended mild incisional tenderness incisions clean Skin: General skin exam: no rashes or lesions noted Neuro: General: patient oriented x3 and moves all extremities DS: Data Data Completed and Pending Completed studies during hospitalization [Text1]: Pending at discharge 02/08/25 23:37 Surgical [PTH] Routine Appendix, appendectomy: Acute appendicitis extending to the margin, and mucosal hyperplasia with focal features suggesting sessile serrated lesion without dysplasia Discharge Plan Discharge Anticipated Discharge Date/Time: 02/12/25 09:48 Patient Disposition: Home, Self-Care Discharge Diagnosis: perforated appendicitis, s/p laparoscopic appendectomy Referrals: Philippe Hernandez MD [Physician, General Surgery] - 1 Week Po,Mario Rob MD [Primary Care Provider, Internal Medicine] - 1 Week Discharge Medications: New amoxicillin-pot clavulanate 875-125 mg tablet 1 tab PO BID Qty: 10 0RF metronidazole 500 mg tablet 500 mg PO TID Qty: 15 0RF oxycodone 5 mg tablet 5 mg PO Q4H PRN (Reason: pain (scale score 7-10)) Qty: 24 0RF Rx Instructions: Partial Fill upon patient request. Continued Eliquis 5 mg tablet 5 mg PO BID Qty: 180 3RF atorvastatin 10 mg tablet 10 mg PO DAILY Qty: 90 3RF pilocarpine HCl 5 mg tablet 5 mg PO BID 90 Days Qty: 180 3RF amlodipine 5 mg tablet 5 mg PO DAILY Qty: 90 1RF Multaq 400 mg tablet 400 mg PO BID Qty: 180 3RF levothyroxine 175 mcg tablet 175 mcg PO DAILY 90 Days Qty: 90 1RF losartan 100 mg tablet 100 mg PO DAILY Qty: 90 3RF metoprolol succinate [Toprol XL] 100 mg tablet extended release 24 hr 100 mg PO DAILY Qty: 90 3RF Mounjaro 10 mg/0.5 mL pen injector 10 mg SUBCUT FR (DME) CPAP Supplies See Rx Instructions .Route .MEDSUPPLY Qty: 1 0RF Rx Instructions: As directed coenzyme Q10 [Co Q-10] 200 mg capsule 400 mg PO DAILY (DME) CPAP Resmed Full face MASK Large Pressure 10 cm humudified air See Rx Instructions .Route .MEDSUPPLY Qty: 1 0RF Rx Instructions: As directed clotrimazole 1 % cream 1 appl topical BID Discharge Orders: Discharge Order (Routine); Ordered 02/12/25 Ordered By: Chitra Hanson Diet: Diabetic diet Activity on Discharge: No heavy lifting Stand Alone Forms: Patient Portal Discharge page Print Language: Danish Activity Restrictions/Additional Instructions: If the incision area is tender, you may apply an ice pack for short intervals (No more than 20 minutes on, followed by at least 20 minutes off). Do not apply heat. Do not use creams, lotions, or topical antibiotics. Ok to shower. You may have some yellow/red tinged drainage from the old drain site- this is normal and expected. Keep site covered with dry dressing while it remains open and draining (may take a few days). Resume all home meds. No heavy lifting (>10lbs) or strenuous activity! Take Tylenol Extra-strength 1-2 tabs every 6 hours for the first day, then as needed. Oxycodone every 6-8 hours as needed for pain. Colace 100 mg every day as needed for constipation. Follow up in office with Dr. Hernandez in 1 week. ([phone]) Call Your Doctor If: -Your temperature exceeds 101.5? F -You experience excessive pain or swelling -You have an unexpected reaction to medication -You have excessive bleeding -You experience continued vomiting/nausea -Your incision begins to separate -Your incision shows signs of infection such as increased redness, swelling, excessive pain, drainage (light blood or clear fluid is normal) or heat Care Plan Goals: Return to baseline health and resume normal activities following recovery period. Health Concerns: perforated appendicitis diet controlled type 2 diabetes mellitus paroxysmal a fib Plan of Treatment: s/p laparoscopic appendectomy antibiotics resume all home meds follow up in the office in 1 week Assessment: doing well post op Discharge Date/Time: 02/12/25 13:18
== END 2025-02-12 13:18 | disposition home or self-care (01) | DRG 399 ==
LOC: HO.ED 20:45 → HO.IMC 02-09 01:10 → HO.S3 02-09 16:57
PROVIDERS: Physician Assistant; Physician Assistant Medical; Admitting Provider Surgery; Emergency Provider Emergency Medicine; PCP Internal Medicine; Visit Provider Surgery
PROC: 0DTJ4ZZ Resection of Appendix, Percutaneous Endoscopic Approach (ICD-10-PCS; CPT 44970; principal; 2025-02-08 21:30)
DX: K35.32 Acute appendicitis with perforation, localized peritonitis, and gangrene, without abscess (principal); E03.9 Hypothyroidism, unspecified; I10 Essential (primary) hypertension; G47.33 Obstructive sleep apnea (adult) (pediatric); E66.01 Morbid (severe) obesity due to excess calories; Z68.37 Body mass index [BMI] 37.0-37.9, adult; Z71.3 Dietary counseling and surveillance; I48.0 Paroxysmal atrial fibrillation; Z95.810 Presence of automatic (implantable) cardiac defibrillator; Z79.01 Long term (current) use of anticoagulants; Z79.890 Hormone replacement therapy; Z79.899 Other long term (current) drug therapy
CPT/HCPCS: 36415; 74177; 80053; 81001; 83605; 83690; 85025; 85027; 87040; 88304; 94660; 99285; A4649; J0131; J1171; J1644; J1836; J2003; J2270; J2371; J2405; J2470; J2543; J2704; J3010; J7168; Q9967

== ENCOUNTER → 2025-02-08 15:08 | Outpatient (BNV) | payer MEDICARE, SELFPAY | PROVIDERS: Emergency Provider Emergency Medicine; PCP Internal Medicine; Visit Provider Radiology Diagnostic Radiology | DX: K35.200 Acute appendicitis with generalized peritonitis, without perforation or abscess (principal) | CPT/HCPCS: 74177 ==

== ENCOUNTER → 2025-02-08 15:17 | Outpatient (BNV) | payer MEDICARE, SELFPAY | PROVIDERS: Emergency Provider Emergency Medicine; PCP Internal Medicine; Visit Provider Surgery | DX: Z90.49 Acquired absence of other specified parts of digestive tract (principal); K35.80 Unspecified acute appendicitis | CPT/HCPCS: 44970; 99024; 99232 ==

== ENCOUNTER → 2025-02-09 00:02 | Outpatient (BNV) | payer MEDICARE, SELFPAY | PROVIDERS: Admitting Provider Surgery; Emergency Provider Emergency Medicine; PCP Internal Medicine; Visit Provider Physician Assistant Medical | DX: I48.0 Paroxysmal atrial fibrillation (principal); E11.65 Type 2 diabetes mellitus with hyperglycemia | CPT/HCPCS: 99222 ==